=== PATIENT | male | born 1970 | race Caucasian/White ===

== ENCOUNTER 2018-06-11 15:29 | Inpatient (IN) ==
[2018-06-11 16:11] LABS: Basophils # (auto) 0.06 K/uL (0-0.2); Basophils % (auto) 0.8 %; Eosinophils # (auto) 0.25 K/uL (0-0.5); Eosinophils % (auto) 3.2 %; Hematocrit (blood only) 47.9 % (42-52); Hemoglobin 16.8 g/dL (14.0-18.0); Immature Granulocytes # (auto) 0.02 K/uL (0.00-0.02); Immature Granulocytes % (auto) 0.3 %; Lymphocytes # (auto) 1.91 K/uL (1.2-3.4); Lymphocytes % (auto) 24.2 %; Mean Corpuscular Hgb Conc 35.1 g/dL (32-36); Mean Corpuscular Volume 89.4 fL (80-100); Mean Platelet Volume 11.4 fL (7.4-10.4); Monocytes # (auto) 0.89 K/uL (0.11-0.59); Monocytes % (auto) 11.3 %; Neutrophils # (auto) 4.76 K/uL (1.4-6.5); Neutrophils % (auto) 60.2 %; Platelet Count 192 K/uL (130-400); RDW Coefficient of Variation 12.7 % (11.5-14.5); RDW Standard Deviation 41.3 fL (36.4-46.3); Red Blood Count 5.36 M/uL (4.7-6.1); White Blood Count 7.89 K/uL (4.8-10.8)
[2018-06-11 16:21] LABS: Partial Thromboplastin Time 28.1 Seconds (21.0-31.0); Prothrombin Time 10.2 Seconds (9.0-12.0)
--- NOTE | 2018-06-11 16:32 | CT Scan Report ---
CT head/brain wo con CLINICAL HISTORY: Right-sided weakness. Possible stroke. COMPARISON STUDY: No previous studies for comparison. TECHNIQUE: Axial CT of the brain is performed from the vertex to the skull base. IV contrast was not administered for this examination. A dose lowering technique was utilized adhering to the principles of ALARA. CT DOSE: 906.86 mGy.cm FINDINGS: No intra or extra-axial mass lesions are visualized. There is no CT evidence of acute cortical infarc tion. There is no evidence of midline shift. There is no acute hemorrhage. No calvarial fractures ar e visualized. There is no evidence of pathologic ventricular dilatation. There is no evidence of acute sinusitis IMPRESSION: No acute intracranial findings Electronically signed by: Narciso Aguilar M.D. 06/11/2018 4:31 PM
[2018-06-11 16:33] LABS: BUN Creatinine Ratio 16.9 (10-20); Blood Urea Nitrogen 13 mg/dl (7-18); Calcium 8.9 mg/dl (8.5-10.1); Carbon Dioxide 30 mmol/L (21-32); Chloride 102 mmol/L (98-107); Creatinine Clr Calc Pharmacy 107.9 ml/min; Est GFR (African American) 123.9; Est GFR (Non-African American) 106.9; Glucose 96 mg/dl (70-99); Magnesium 2.1 mg/dl (1.8-2.4); Potassium 4.1 mmol/L (3.5-5.1); Sodium 137 mmol/L (136-145)
[2018-06-11 16:37] LABS: Troponin I < 0.015 ng/ml (0-0.045)
--- NOTE | 2018-06-11 16:40 | CT Scan Report ---
CT OF THE CERVICAL SPINE CLINICAL HISTORY: Right-sided weakness. COMPARISON STUDY: None CT DOSE: TECHNIQUE: CT scan of the cervical spine was performed from the skull base to the thoracic inlet. Britney ges are reviewed in the axial, sagittal, and coronal planes. IV contrast was not administered for thi s examination. A dose lowering technique was utilized adhering to the principles of ALARA. FINDINGS: The visualized portions of the lung apices reveal no evidence of pneumothorax. The prevertebral soft tissues are normal. No fractures or subluxations are visualized. There are multilevel degenerative changes. There is a suspected large right paracentral disc protrusion at the C3-4 level with significant spina l canal narrowing. There is a a suspected central disc protrusion at the C4-5 level with effacement o f the anterior thecal sac. There is a suspected broad-based disc protrusion at the C5-6 level with mi ld spinal canal narrowing. An MRI is recommended in follow-up given the limitations of CT scanning fo r diagnosis of disc disease. IMPRESSION: 1. No acute fractures or dislocations identified 2. Suspected large right paracentral disc protrusion at the C3-4 level, suspected small small moderat e central disc protrusion at the C4-5 level, and suspected small broad-based central disc protrusion at the C5-6 level. There is suspected significant canal narrowing at the C3-4 level with possible cor d deformity. An MRI is recommended in follow-up given the limitations of CT scanning for diagnosis of disc disease. Electronically signed by: Narciso Aguilar M.D. 06/11/2018 4:39 PM
--- NOTE | 2018-06-11 16:43 | XRay Report ---
XR chest 1V portable CLINICAL HISTORY: Right-sided weakness COMPARISON STUDY: December 08, 2013 FINDINGS: The cardiac and mediastinal contours are normal. There is no evidence of focal pulmonary co nsolidation. There is no evidence of failure. No pleural effusions are visualized.[Since the prior st udy, the nasogastric tube has been removed. IMPRESSION: No active disease in the chest. Electronically signed by: Narciso Aguilar M.D. 06/11/2018 4:42 PM
[2018-06-11] MEDS ORDERED: methylPREDNISolone 125 MG/2 ML VIAL IV STA (17:16)
[2018-06-11] MEDS ORDERED: HYDROmorphone INJ 1 MG/ML SYRINGE IV STA (17:52)
--- NOTE | 2018-06-11 19:13 | Magnetic Resonance Report ---
MR cervical spine wo con CLINICAL HISTORY: Right arm and leg weakness. Abnormal CT scan. TECHNIQUE: Sagittal and axial T1, T2 and STIR images were obtained. COMPARISON STUDY: CT scan performed June 11, 2018 There are no suspicious areas of marrow replacement. No intrinsic cervical cord lesions are visualize d. C2-3: There is no evidence of disc bulge or focal herniation. There is no spinal or foraminal stenosi s. C3-4: There is a large central disc extrusion with marked secondary spinal canal narrowing. There is deformity of the spinal cord which has an AP diameter of 2.9 mm. There is increased signal within the cord consistent with a secondary myelopathy. C4-5: There is a moderate central disc protrusion with mild cord deformity. There is minor left-sided foraminal narrowing C5-6 :There is a broad-based disc bulge/protrusion. There is moderate spinal canal narrowing with fla ttening of the AP diameter of the spinal cord. There is increased signal within the left hemicord con sistent with a secondary myelopathy. C6-7: There is no evidence of disc bulge or focal herniation. There is no evidence of spinal or merlene inal stenosis. C7-T1: There is no evidence of disc bulge or focal herniation. There is no evidence of spinal or fora randall stenosis. IMPRESSION: 1. Large central disc extrusion at the C3-4 level with resulting cord compression. There is increased signal within the cord consistent with a secondary myelopathy 2. Moderate central disc protrusion at the C4-5 level with mild central cord deformity 3. Broad-based disc bulge/protrusion at the C5-6 level with secondary spinal stenosis, cord deformity , and increased signal within the left hemicord consistent with a secondary myelopathy. Electronically signed by: Narciso Aguilar M.D. 06/11/2018 7:12 PM
--- NOTE | 2018-06-11 20:04 | Emergency Department Note ---
Entered by Patria Bruno acting as a scribe for Leighton Patino DO History of Present Illness General Chief complaint: Neuro Symptoms/Deficit Stated complaint: RT SIDE OF BODY VERY WEAK,NECK PAIN Source: patient Mode of arrival: ambulatory Limitations: no limitations History of Present Illness Provider complaint: Weakness Onset (ago): day(s) 9 Location: upper extremity, lower extremity and right Severity: moderate Pain Consistency: + constant Maximum Pain Intensity: 1 Exacerbated By: + none Associated symptoms: + other (neck pain); no chest pain, no cough, no fever/ chills, no nausea/vomiting and no shortness of breath Patient is a 47 year old male presenting to the ED with weakness beginning x9 days ago. Patient states that he was driving to work prior to onset when he noticed having right sided weakness. Patient includes weakness is constant and moderate in severity. He shares he is dragging his right foot while walking, and having trouble moving the right arm. Patient includes he is having associated neck pain. Patient includes he takes subutex nasally, and denies any prior heroin use. Patient shares he did go to the PCP last week as his hands were �cold� but no results were found. Patient denies any headache, CP, SOB, nausea, vomiting, diarrhea, fevers, or any other sx at this time. Patiently lastly has a history of acid reflex and HTN. Home Medications Home Medications Medication Instructions Recorded Confirmed Type buprenorphine-naloxone 1 tab SUBLINGUAL DAILY 06/11/18 06/11/18 History Allergies Allergy/AdvReac Type Severity Reaction Status Date / Time Penicillins Allergy Unknown rash Verified 06/11/18 17:20 Past Med/Surg History Medical History Hypertension (Chronic) Family History Other No significant family history Social History Feels Safe at Home: Yes Smoking Status: Current every day smoker Preferred Language: Citizen Of The [place] Review of Systems See HPI for pertinent positives & negatives. and A total of 10 systems reviewed and were otherwise negative Physical Exam Vital Signs Vital Signs - 24 hr 06/11/18 15:31 06/11/18 16:02 06/11/18 19:47 Temperature 36.6 C Temperature Source Oral Sepsis Recent Fever Within 48 Hours No Sepsis New/Unexplained Change in Mental Status No Sepsis Action Taken by Nursing No Action Required Pulse Rate 76 Pulse Rate [Finger] 78 Respiratory Rate 17 16 Respiratory Effort / Characteristics Non-Labored Respiratory Depth Normal Blood Pressure 176/105 H Blood Pressure [Right Arm] 150/104 H Blood Pressure Mean 128 Blood Pressure Mean [Right Arm] 119 Blood Pressure Position Sitting Blood Pressure Position [Right Arm] Lying Pulse Oximetry 98 96 Oxygen Delivery Method Room Air Room Air Room Air GENERAL: Sitting up in bed, alert, disheveled, cachectic EYE EXAM: normal conjunctiva. OROPHARYNX: no exudate, no erythema, lips, buccal mucosa, and tongue normal and mucous membranes are moist NECK: supple, no nuchal rigidity, no adenopathy, non-tender LUNGS: Clear to auscultation. Normal chest wall mechanics HEART: no murmurs, S1 normal and S2 normal ABDOMEN: abdomen soft, non-tender, normo-active bowel, sounds, no masses, no rebound or guarding. BACK: Back is symmetrical on inspection and there is no deformity, no midline tenderness, no CVA tenderness. SKIN: no rashes and no bruising UPPER EXTREMITIES: upper extremities are grossly normal. Radial pulses equal bilaterally. LOWER EXTREMITIES: No pitting edema. NEURO EXAM: Normal sensorium, cranial nerves II-XII intact, normal speech, no gross weakness of arms, no gross weakness of legs. Right digits held in flexion. Weakness in flexion and extension of right hip and knee. Decreased sensation on right side. Hyperreflexia of the bilateral patellar and Achilles reflexes. No clonus. Does have rigidity in the right upper extremity. Course Vital signs were reviewed and showed hypertension. The patients medical record was reviewed The above diagnostic studies were performed and reviewed. ED treatments and interventions as stated above. 1539: The patient was evaluated in room A11A. A complete history and physical examination was performed. 1724: Upon reevaluation, the patient is doing well. I discussed my findings with the patient and he understands and agrees with the treatment plan. Based on the patients age, coexisting illnesses, exam and lab findings the decision to treat as an outpatient was made. 1728: Discussed with Dr. Chang, neurology. 1918: Discussed with Dr. Wahl, who will follow up with patient in outpatient. The patient remained stable while under my care. The patient will be evaluated for further management. Administered Medications Discontinued Medications Hydromorphone HCl (Dilaudid) 1 mg IV NOW STA Stop: 06/11/18 17:53 Last Admin: 06/11/18 18:50 Dose: Not Given Methylprednisolone (Solumedrol) 125 mg IV NOW STA Stop: 06/11/18 17:17 Last Admin: 06/11/18 17:27 Dose: 125 mg Medical Decision Making Differential Diagnosis Differential Diagnosis includes but is not limited to ischemic Stroke, hemorrhagic stroke, bells palsy, mass, neoplasm, migraine headache, seizure, subarachnoid hemorrhage, TIA, and transient global amnesia. Medical Records Attestation: I reviewed the patient's medical records. Home Medications Current Medication List: was personally reviewed by me Laboratory Data Attestation: I reviewed the patient's lab results. Result diagrams: 06/11/18 16:00 06/11/18 16:00 Lab Results 06/11/18 06/11/18 06/11/18 Range/Units 15:55 16:00 16:00 WBC 7.89 (4.8-10.8) K/uL RBC 5.36 (4.7-6.1) M/uL Hgb 16.8 (14.0-18.0) g/dL Hct 47.9 (42-52) % MCV 89.4 (80-100) fL MCH 31.3 (25-34) pg MCHC 35.1 (32-36) g/dL RDW Std Deviation 41.3 (36.4-46.3) fL RDW Coeff of Rabia 12.7 (11.5-14.5) % Plt Count 192 (130-400) K/uL MPV 11.4 H (7.4-10.4) fL Immature Gran % (Auto) 0.3 % Neut % (Auto) 60.2 % Lymph % (Auto) 24.2 % [place] % (Auto) 11.3 % Eos % (Auto) 3.2 % Baso % (Auto) 0.8 % Immature Gran # (Auto) 0.02 (0.00-0.02) K/uL Neut # (Auto) 4.76 (1.4-6.5) K/uL Lymph # (Auto) 1.91 (1.2-3.4) K/uL [place] # (Auto) 0.89 H (0.11-0.59) K/uL Eos # (Auto) 0.25 (0-0.5) K/uL Baso # (Auto) 0.06 (0-0.2) K/uL PT 10.2 (9.0-12.0) Seconds INR 1.0 (0.9-1.1) APTT 28.1 (21.0-31.0) Seconds PTT Ratio 1.0 Sodium (136-145) mmol/L Potassium (3.5-5.1) mmol/L Chloride (98-107) mmol/L Carbon Dioxide (21-32) mmol/L Anion Gap (3-11) BUN (7-18) mg/dl Creatinine (0.6-1.4) mg/dl Est Cr Clr Drug Dosing ml/min Est GFR ( Amer) Est GFR (Non-Af Amer) BUN/Creatinine Ratio (10-20) Glucose (70-99) mg/dl POC Glucose 97 (70-99) Lactate (0.4-2.0) mmol/L Calcium (8.5-10.1) mg/dl Magnesium (1.8-2.4) mg/dl Troponin I (0-0.045) ng/ml 06/11/18 06/11/18 Range/Units 16:00 16:00 WBC (4.8-10.8) K/uL RBC (4.7-6.1) M/uL Hgb (14.0-18.0) g/dL Hct (42-52) % MCV (80-100) fL MCH (25-34) pg MCHC (32-36) g/dL RDW Std Deviation (36.4-46.3) fL RDW Coeff of Rabia (11.5-14.5) % Plt Count (130-400) K/uL MPV (7.4-10.4) fL Immature Gran % (Auto) % Neut % (Auto) % Lymph % (Auto) % [place] % (Auto) % Eos % (Auto) % Baso % (Auto) % Immature Gran # (Auto) (0.00-0.02) K/uL Neut # (Auto) (1.4-6.5) K/uL Lymph # (Auto) (1.2-3.4) K/uL [place] # (Auto) (0.11-0.59) K/uL Eos # (Auto) (0-0.5) K/uL Baso # (Auto) (0-0.2) K/uL PT (9.0-12.0) Seconds INR (0.9-1.1) APTT (21.0-31.0) Seconds PTT Ratio Sodium 137 (136-145) mmol/L Potassium 4.1 (3.5-5.1) mmol/L Chloride 102 (98-107) mmol/L Carbon Dioxide 30 (21-32) mmol/L Anion Gap 4.0 (3-11) BUN 13 (7-18) mg/dl Creatinine 0.79 (0.6-1.4) mg/dl Est Cr Clr Drug Dosing 107.9 ml/min Est GFR ( Amer) 123.9 Est GFR (Non-Af Amer) 106.9 BUN/Creatinine Ratio 16.9 (10-20) Glucose 96 (70-99) mg/dl POC Glucose (70-99) Lactate 1.3 (0.4-2.0) mmol/L Calcium 8.9 (8.5-10.1) mg/dl Magnesium 2.1 (1.8-2.4) mg/dl Troponin I < 0.015 (0-0.045) ng/ml Imaging Data Radiologist's Impression: CT OF THE CERVICAL SPINE CLINICAL HISTORY: Right-sided weakness. COMPARISON STUDY: None CT DOSE: TECHNIQUE: CT scan of the cervical spine was performed from the skull base to the thoracic inlet. Images are reviewed in the axial, sagittal, and coronal planes. IV contrast was not administered for this examination. A dose lowering technique was utilized adhering to the principles of ALARA. FINDINGS: The visualized portions of the lung apices reveal no evidence of pneumothorax. The prevertebral soft tissues are normal. No fractures or subluxations are visualized. There are multilevel degenerative changes. There is a suspected large right paracentral disc protrusion at the C3-4 level with significant spinal canal narrowing. There is a a suspected central disc protrusion at the C4-5 level with effacement of the anterior thecal sac. There is a suspected broad-based disc protrusion at the C5-6 level with mild spinal canal narrowing. An MRI is recommended in follow-up given the limitations of CT scanning for diagnosis of disc disease. IMPRESSION: 1. No acute fractures or dislocations identified 2. Suspected large right paracentral disc protrusion at the C3-4 level, suspected small small moderate central disc protrusion at the C4-5 level, and suspected small broad-based central disc protrusion at the C5-6 level. There is suspected significant canal narrowing at the C3-4 level with possible cord deformity. An MRI is recommended in follow-up given the limitations of CT scanning for diagnosis of disc disease. Electronically signed by: Narciso Aguilar M.D. 06/11/2018 4:39 PM XR chest 1V portable CLINICAL HISTORY: Right-sided weakness COMPARISON STUDY: December 08, 2013 FINDINGS: The cardiac and mediastinal contours are normal. There is no evidence of focal pulmonary consolidation. There is no evidence of failure. No pleural effusions are visualized.[Since the prior study, the nasogastric tube has been removed. IMPRESSION: No active disease in the chest. Electronically signed by: Narciso Aguilar M.D. 06/11/2018 4:[address] head/brain wo con CLINICAL HISTORY: Right-sided weakness. Possible stroke. COMPARISON STUDY: No previous studies for comparison. TECHNIQUE: Axial CT of the brain is performed from the vertex to the skull base. IV contrast was not administered for this examination. A dose lowering technique was utilized adhering to the principles of ALARA. CT DOSE: 906.86 mGy.cm FINDINGS: No intra or extra-axial mass lesions are visualized. There is no CT evidence of acute cortical infarction. There is no evidence of midline shift. There is no acute hemorrhage. No calvarial fractures are visualized. There is no evidence of pathologic ventricular dilatation. There is no evidence of acute sinusitis IMPRESSION: No acute intracranial findings Electronically signed by: Narciso Aguilar M.D. 06/11/2018 4:31 PM MR cervical spine wo con CLINICAL HISTORY: Right arm and leg weakness. Abnormal CT scan. TECHNIQUE: Sagittal and axial T1, T2 and STIR images were obtained. COMPARISON STUDY: CT scan performed June 11, 2018 There are no suspicious areas of marrow replacement. No intrinsic cervical cord lesions are visualized. C2-3: There is no evidence of disc bulge or focal herniation. There is no spinal or foraminal stenosis. C3-4: There is a large central disc extrusion with marked secondary spinal canal narrowing. There is deformity of the spinal cord which has an AP diameter of 2.9 mm. There is increased signal within the cord consistent with a secondary myelopathy. C4-5: There is a moderate central disc protrusion with mild cord deformity. There is minor left-sided foraminal narrowing C5-6 :There is a broad-based disc bulge/protrusion. There is moderate spinal canal narrowing with flattening of the AP diameter of the spinal cord. There is increased signal within the left hemicord consistent with a secondary myelopathy. C6-7: There is no evidence of disc bulge or focal herniation. There is no evidence of spinal or foraminal stenosis. C7-T1: There is no evidence of disc bulge or focal herniation. There is no evidence of spinal or foraminal stenosis. IMPRESSION: 1. Large central disc extrusion at the C3-4 level with resulting cord compression. There is increased signal within the cord consistent with a secondary myelopathy 2. Moderate central disc protrusion at the C4-5 level with mild central cord deformity 3. Broad-based disc bulge/protrusion at the C5-6 level with secondary spinal stenosis, cord deformity, and increased signal within the left hemicord consistent with a secondary myelopathy. Electronically signed by: Narciso Aguilar M.D. 06/11/2018 7:12 PM ECG Data Attestation: I personally reviewed and interpreted this ECG as follows: Indication: weakness Rate (beats per minute): 68 Rhythm: sinus rhythm Findings: + other (normal axis, right ventricular conduction delay); no PVC Blood Pressure Blood Pressure Findings: Elevated blood pressure Blood Pressure Disposition: elevated BP felt to be situational MDM Narrative Patient is a 47-year-old male presents the ER for right upper extremity and right lower extremity weakness. This is been present for the past 7-10 days. He was referred in. Labs were obtained and showed no significant leukocytosis or anemia. INR was unremarkable. BMP was unremarkable. Lactate was normal. Troponin was negative. CT of the cervical spine and head confirms large disc with spinal cord impingement. MRI of the cervical spine after discussion with orthopedics and neurology confirms a disc bulge at C3-C4 4-5 and 5-6. 2 of which have cord impingement causing myopathy which is consistent with his exam as he has rigidity in the right upper extremity paresthesias. Did give the patient IV steroids. Discussed with the hospitalist after discussing with orthopedic surgery on 2 separate occasions 1 of which following the results of the CT in 1 following the results of the MRI. He agreed with the steroids and he will see him tomorrow for possible surgery. Pt was updated at bedside and admitted to the hospitalist for further workup. Impression & Plan Herniated vertebral disc, Compression of spinal cord, Weakness of right upper extremity, Weakness of right lower extremity Discharge Plan Visit Data Chief Complaint: Neuro Symptoms/Deficit Stated Complaint: RT SIDE OF BODY VERY WEAK,NECK PAIN ED Provider: Leighton Patino Discharge Problem: Herniated vertebral disc, Compression of spinal cord, Weakness of right upper extremity, Weakness of right lower extremity Forms Stand Alone Forms: My [facility] Prescriptions Prescriptions: No Action buprenorphine-naloxone 8-2 mg tablet, sublingual 1 tab Sublingual DAILY RF: 0 The scribe's documentation has been prepared under my direction and personally reviewed by me in its entirety. I confirm that the note above accurately reflects all work, treatment, procedures, and medical decision making performed by me.
--- NOTE | 2018-06-11 20:36 | History & Physical Report ---
Date of Service June 11, 2018 Assessment & Plan (1) Right-sided muscle weakness: (2) Compression of spinal cord: This is a 47yo M with a PMH of cervical disc disease, h/o narcotic addiction, OA and HTN who presents with right sided weakness that began last week and was found to have R sided weakness in the setting of spinal cord dysfunction due to cervical disc extrusion. -R sided weakness x 1 week in the setting of cervical disc disease -Cervical spine MRI with: * 1. Large central disc extrusion at the C3-4 level with resulting cord compression. There is increased signal within the cord consistent with a secondary myelopathy * 2. Moderate central disc protrusion at the C4-5 level with mild central cord deformity * 3. Broad-based disc bulge/protrusion at the C5-6 level with secondary spinal stenosis, cord deformity, and increased signal within the left hemicord consistent with a secondary myelopathy -Was given 125 mg IV solu-medrol in ED -ED physician discussed with Dr. Wahl, who will evaluate patient tomorrow. No additional steroids to be given at this time -NPO after midnight in setting of possible surgery -Neurovascular checks, fall precautions (3) History of narcotic addiction: Has been on Suboxone for years and is tapering dose (reports snorting medication) -Current dose is half of 2mg tab BID -Will continue for now. Discussed strategy to avoid additional narcotics if possible -Pain currently 05/26. Ordered Tylenol 1000mg Q8H PRN (4) Hypertension: Diagnosed years ago. Is not currently prescribed antihypertensive medication -Add PRN antihypertensive if BP remains elevated DVT Ppx: SCDs Code status: FULL PCP: Teodoro Rosa Dispo: Admitted to med/tele. Plan to return home once medically stable. Patient seen in collaboration with Dr. Monroy. Please see addendum. History of Present Illness Chief Complaint: RUE/RLE weakness, neck pain Primary Care Provider: Tanya Rosa MD This is a 47yo M with a PMH of cervical disc disease, h/o narcotic addiction, OA and HTN who presents with right sided weakness that began last week. Patient has history of cervical disc disease with intermittent paresthesias and numbness of R arm over the past 7 months. Was getting out of his car last week when he began to experience R sided weakness. Weakness has remained constant since last week and has resulted in difficulty using R arm as well as dragging his R foot when walking. Endorses a few falls since last week but denies head trauma or LOC. Says he just loses his balance and has to slowly lower himself to the ground. 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 Neck pain is a 2/10 currently. Was seen by PCP today and was directed to ED for further evaluation with imaging. Takes Suboxone for history of narcotic addiction and is slowly trying to taper dose. Currently snorts half of a 2mg tab BID. Denies fever, chills, confusion, difficulty swallowing, chest pain, SOB, nausea, vomiting, abdominal pain, dysuria, diarrhea or sensory deficits. Allergies Allergy/AdvReac Type Severity Reaction Status Date / Time Penicillins Allergy Unknown rash Verified 06/11/18 17:20 Home Medications Home Medications Medication Instructions Recorded Confirmed Type buprenorphine-naloxone 0.5 tab SUBLINGUAL BID 06/11/18 06/11/18 History Past Med/Surg History Medical History Cervical disc disease (Chronic) History of narcotic addiction (Chronic) Hypertension (Chronic) Surgical History History of esophagogastroduodenoscopy (EGD) (Resolved) Social History Current Living Situation: Alone Other Information That Helps Us Care for You: No Feels Safe at Home: Yes Safety Concerns: Feels Safe At This Time Smoking Status: Current every day smoker Tobacco Type: cigarettes Cigarettes per Day: 30 Do You Dip or Chew Tobacco: No Second Hand Exposure: No Tobacco Cessation Education Requested by Patient: No Hx Alcohol Use: No Hx Substance Use: Yes substance use type: opiates Substance Use Type Other:: opiates. Now on prescribed suboxone Beliefs That Will Affect Care: None Preferred Language: Citizen Of [place] Communication Ability: Effective Hotel Server Required: No Review of Systems Constitutional: no fever, no fatigue and no weakness Eyes: no worsening vision Ear, Nose, Mouth, Throat: no nasal congestion, no sore throat and no dysphagia Respiratory: no cough, no chest congestion and no dyspnea Cardiovascular: no chest pain, no radiating jaw, neck or arm pain, no dyspnea on exertion, no palpitations and no edema Gastrointestinal: no nausea, no vomiting and no change in stools Genitourinary (Male): no dysuria and no hematuria Musculoskeletal: + neck pain, + radicular pain and + muscle weakness Integumentary: + 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 ) Neurologic: + gait abnormality, + falls and + localized weakness (RUE, RLE ); no syncope, no headache(s) and no confusion Psychiatric: + behavioral changes Physical Exam 2 Vital Signs (Past 24 Hours): Last Vital Signs Temp 36.6 C 06/11/18 15:31 Pulse 78 06/11/18 19:47 Resp 16 06/11/18 19:47 BP 150/104 H 06/11/18 19:47 Pulse Ox 96 06/11/18 19:47 Physical Exam: General Appearance: WD/WN, no apparent distress, resting comfortably Head: normocephalic, atraumatic Eyes: normal inspection, PERRL, EOMI ENT: hearing grossly normal, pharynx normal (moist mucous membranes) Neck: supple, no JVD, no adenopathy Respiratory/Chest: Expiratory wheezing at R base, otherwise clear to auscultation. No rales or rhonci. No respiratory distress or accessory muscle use Cardiovascular: regular rate, rhythm, no murmur, normal peripheral pulses Abdomen/GI: normal bowel sounds, soft, non-tender to palpation Extremities/Musculoskelatal: normal inspection, no calf tenderness, normal capillary refill, no pedal edema. Cervical spine with point tenderness. Reduced range of motion of neck Neurologic/Psych: alert, normal mood/affect, oriented x 3. RUE and RLE with full ROM, 4/5 SHAKEEL. L side with full ROM, 5/5 SHAKEEL. Hyperreflexive patellar tendon reflexes bilaterally. Sensation intact. Skin: normal color, warm/dry Results & Data Laboratory Results Short CBC 06/11/18 Range/Units 16:00 WBC 7.89 (4.8-10.8) K/uL Hgb 16.8 (14.0-18.0) g/dL Hct 47.9 (42-52) % Plt Count 192 (130-400) K/uL BMP 06/11/18 16:00 Sodium 137 Potassium 4.1 Chloride 102 Carbon Dioxide 30 BUN 13 Creatinine 0.79 Glucose 96 Calcium 8.9 Cardiac Enzymes 06/11/18 Range/Units 16:00 Troponin I < 0.015 (0-0.045) ng/ml Diagnostic Findings Head CT: IMPRESSION: No acute intracranial findings CXR: IMPRESSION: No active disease in the chest. Cervical spine CT: IMPRESSION: 1. No acute fractures or dislocations identified 2. Suspected large right paracentral disc protrusion at the C3-4 level, suspected small small moderate central disc protrusion at the C4-5 level, and suspected small broad-based central disc protrusion at the C5-6 level. There is suspected significant canal narrowing at the C3-4 level with possible cord deformity. An MRI is recommended in follow-up given the limitations of CT scanning for diagnosis of disc disease. Cervical spine MRI: IMPRESSION: 1. Large central disc extrusion at the C3-4 level with resulting cord compression. There is increased signal within the cord consistent with a secondary myelopathy 2. Moderate central disc protrusion at the C4-5 level with mild central cord deformity 3. Broad-based disc bulge/protrusion at the C5-6 level with secondary spinal stenosis, cord deformity, and increased signal within the left hemicord consistent with a secondary myelopathy. ECG Rhythm: normal sinus Findings: + T-wave inversion (anterior leads ) Code Status & VTE Plan Code Status FULL Supervising Physician Co-Signing Physician Notes HISTORY: Record reviewed. Patient interviewed and examined. Care coordinated with Sandra Stinson PA-C. Please refer to her documentation for patient's history. Briefly, 47 YO male with neck pain, RUE + RLE weakness. No trauma. EXAM: General- no distress Lungs- clear to auscultation; no respiratory distress Cardiovascular- RRR Abdomen- + bowel sounds, soft, nontender Extremities- no cyanosis; no calf tenderness Neuro- alert, oriented; RUE strength 4/5, RLE strength 4/5, right plantar reflex equivocally upgoing Skin- warm & dry DATA: CT HEAD FINDINGS: No intra or extra-axial mass lesions are visualized. There is no CT evidence of acute cortical infarction. There is no evidence of midline shift. There is no acute hemorrhage. No calvarial fractures are visualized. There is no evidence of pathologic ventricular dilatation. There is no evidence of acute sinusitis IMPRESSION: No acute intracranial findings Electronically signed by: Narciso Aguilar M.D. 06/11/2018 4:[address] CERVICAL SPINE IMPRESSION: 1. No acute fractures or dislocations identified 2. Suspected large right paracentral disc protrusion at the C3-4 level, suspected small small moderate central disc protrusion at the C4-5 level, and suspected small broad-based central disc protrusion at the C5-6 level. There is suspected significant canal narrowing at the C3-4 level with possible cord deformity. An MRI is recommended in follow-up given the limitations of CT scanning for diagnosis of disc disease. Electronically signed by: Narciso Aguilar M.D. 06/11/2018 4:39 PM MRI CERVICAL SPINE IMPRESSION: 1. Large central disc extrusion at the C3-4 level with resulting cord compression. There is increased signal within the cord consistent with a secondary myelopathy 2. Moderate central disc protrusion at the C4-5 level with mild central cord deformity 3. Broad-based disc bulge/protrusion at the C5-6 level with secondary spinal stenosis, cord deformity, and increased signal within the left hemicord consistent with a secondary myelopathy. Electronically signed by: Narciso Aguilar M.D. 06/11/2018 7:12 PM ASSESSMENT AND PLAN: Cervical disc disease with cord compression and myelopathy. Consult Ortho Spine. Please refer to YUNG Stinson's documentation for discussion of other issues.
[2018-06-11] MEDS ORDERED: ACETAMINOPHEN 500 MG TAB PO PRN (21:09)
[2018-06-11] MEDS: NICOTINE 21 MG/24 HR TDSY TD SCH (22:04)
[2018-06-11 22:20] LABS: Appearance Urine Clear (Clear); Bilirubin Urine Negative (Negative); Blood Urine Negative (Negative); Color Urine Yellow; Glucose Urine UA Negative (Negative); Ketones Urine Negative (Negative); Leukocyte Esterase Urine Negative (Negative); Nitrite Urine Negative (Negative); Protein Urine Negative (Negative); Specific Gravity Urine 1.012 (1.000-1.030); Urobilinogen Urine Negative (Negative)
[2018-06-12 00:44] LABS: Amphetamines+Metham, Urine Neg (Neg); Barbiturates, Urine Neg (Neg); Benzodiazepine, Urine Neg (Neg); Cocaine, Urine Neg (Neg); MDMA (Ecstacy), Urine Neg (Neg); Methadone, Urine Neg (Neg); Opiate, Urine Neg (Neg); Phencyclidine, Urine Neg (Neg)
[2018-06-12] MEDS: BUPRENORPHINE/NALOXONE 8/2 MG TAB SL SCH ×2 (07:39→21:18)
[2018-06-12] MEDS: TRAMADOL HCL 50 MG TABLET PO PRN ×2 (07:40→11:47)
[2018-06-12 08:16] LABS: Hematocrit (blood only) 48.4 % (42-52); Hemoglobin 16.8 g/dL (14.0-18.0); Mean Corpuscular Hgb Conc 34.7 g/dL (32-36); Mean Corpuscular Volume 88.2 fL (80-100); Mean Platelet Volume 11.3 fL (7.4-10.4); Platelet Count 240 K/uL (130-400); RDW Coefficient of Variation 12.5 % (11.5-14.5); RDW Standard Deviation 40.3 fL (36.4-46.3); Red Blood Count 5.49 M/uL (4.7-6.1); White Blood Count 12.44 K/uL (4.8-10.8)
[2018-06-12 08:56] LABS: Alanine Aminotransferase 16 U/L (12-78); Albumin Level 3.7 gm/dl (3.4-5.0); Aspartate Aminotransferase 10 U/L (15-37); BUN Creatinine Ratio 19.4 (10-20); Bilirubin Direct < 0.1 mg/dl (0-0.2); Blood Urea Nitrogen 15 mg/dl (7-18); Calcium 9.1 mg/dl (8.5-10.1); Carbon Dioxide 26 mmol/L (21-32); Chloride 103 mmol/L (98-107); Creatinine Clr Calc Pharmacy 105.5 ml/min; Est GFR (African American) 123.9; Est GFR (Non-African American) 106.9; Glucose 107 mg/dl (70-99); Potassium 4.1 mmol/L (3.5-5.1); Sodium 137 mmol/L (136-145)
[2018-06-12 08:59] LABS: Alkaline Phosphatase 86 U/L (45-117); Bilirubin,Total 0.3 mg/dl (0.2-1); Total Protein 7.9 gm/dl (6.4-8.2)
[2018-06-12] MEDS: NICOTINE 21 MG/24 HR TDSY TD SCH (09:02)
--- NOTE | 2018-06-12 10:42 | Anesthesiology Consultation ---
Date of Service June 12, 2018 Assessment & Plan (1) Encounter for pre-operative examination: Chart Review Chart Review: Acceptable Risk for Surgery Consults Requested none ASA ASA3 Proposed Anesthesia Anesthesia Type: General Risk / Benefits Reviewed With: PT / POA / Parent / Guardian, Accepts Plan and Informed Consent Obtained Additional Comments: glidescope intubation with in-line stabilization NPO Date Last Intake of Fluids: 06/12/18 Time Last Intake of Fluids: 00:00 Date Last Intake of Solids: 06/12/18 Time Last Intake of Solids: 00:00 History Surgery Operation Date: 06/12/18 09:40 Proposed Procedures p C3-C6 Anterior Cervical Corpectomy Fusion - Luis Wahl DO Height/Weight Height: 5 ft 10 in Weight: 64.5 kg Allergies Allergy/AdvReac Type Severity Reaction Status Date / Time Penicillins Allergy Unknown rash Verified 06/11/18 17:20 Medications Home Medications Medication Instructions Recorded Confirmed Last Taken buprenorphine-naloxone 0.5 tab SUBLINGUAL BID 06/11/18 06/11/18 06/11/18 14:00 Active Medications Generic Name Dose Route Start Last Admin Trade Name Freq PRN Reason Stop Dose Admin Acetaminophen 1,000 mg 06/11/18 21:09 06/12/18 05:15 Tylenol PO 07/11/18 21:08 1,000 mg Q8H PRN Administration Pain or Fever Buprenorphine/Naloxone 0.5 tab 06/12/18 06:45 06/12/18 07:39 Suboxone 8 Mg/2 Mg SL 07/12/18 06:44 0.5 tab BID PREETHI Administration Nicotine 21 mg 06/12/18 09:00 06/12/18 09:02 Nicoderm Cq TD 07/12/18 08:59 21 mg QAM PREETHI Administration Tramadol HCl 25 - 50 mg 06/12/18 06:47 06/12/18 11:47 Ultram PO 07/12/18 06:46 50 mg Q4H PRN Administration Pain Past Medical History Medical History Cervical disc disease (Chronic) History of narcotic addiction (Chronic) Hypertension (Chronic) Past Family History Family History Mother Diabetes Father Lung disease Past Surgical History Surgical History History of esophagogastroduodenoscopy (EGD) (Resolved) Past Anesthesia History No Hx of Anesthesia Complications and No Family Hx of Anesthesia Complications History of PONV No Motion Sickness Screening History of Motion Sickness: No Social History Smoking Status: Current every day smoker tobacco type: cigarettes Smoking cigarettes per day: 30 Do You Dip or Chew Tobacco: No Hx Alcohol Use: No Hx Substance Use: Yes substance use type: opiates Substance Use Type Other:: opiates. Now on prescribed suboxone Exercise / Class Metabolic Activity II 4-5 Yardwork/Stairs/Walk up hill Physical Exam Vital Signs Last Vital Signs Temp 98.1 F 06/12/18 12:00 Pulse 96 H 06/12/18 12:00 Resp 18 06/12/18 12:00 BP 162/108 H 06/12/18 12:00 Pulse Ox 97 06/12/18 12:00 ENMT Mouth: + dentures; no dentition abnormality Mallampati Class: I Neck normal visual inspection and + limited neck extension Respiratory normal respiratory effort Auscultation: lungs clear to auscultation bilaterally Cardiovascular Rate/Rhythm: regular rate and regular rhythm Neurologic moves all extremities Motor/Sensory: + sensory deficit (Decreased right side) 5/5 RUE flexion, 5/5 LUE flexion 5/5 RUE extension, 5/5 LUE extension 5/5 B/L reception clerk strength 5/5 B/L LE plantar flexion/dorsiflexion Testing Electrocardiogram Date: 06/11/18 Normal sinus rhythm @ 68 bpm Possible Left atrial enlargement RSR' or QR pattern in V1 suggests right ventricular conduction delay Borderline ECG When compared with ECG of 08-DEC-2013 19:41, Vent. rate has decreased BY 43 BPM T wave inversion now evident in Anterior leads Chest X-Ray Date: 06/11/18 Findings: + NAD Cervical Spine Date: 06/11/18 1. Large central disc extrusion at the C3-4 level with resulting cord compression. There is increased signal within the cord consistent with a secondary myelopathy 2. Moderate central disc protrusion at the C4-5 level with mild central cord deformity 3. Broad-based disc bulge/protrusion at the C5-6 level with secondary spinal stenosis, cord deformity, and increased signal within the left hemicord consistent with a secondary myelopathy. Laboratory Results 06/12/18 07:43 06/12/18 07:43 Blood Type A Positive 06/12/18 09:18 Antibody Screen NEGATIVE 06/12/18 09:18 PT 10.2 Seconds (9.0-12.0) 06/11/18 16:00 INR 1.0 (0.9-1.1) 06/11/18 16:00 APTT 28.1 Seconds (21.0-31.0) 06/11/18 16:00 Urine Color Yellow 06/11/18 21:57 Urine Appearance Clear (Clear) 06/11/18 21:57 Urine pH 8.0 (4.5-7.5) H 06/11/18 21:57 Ur Specific [place] 1.012 (1.000-1.030) 06/11/18 21:57 Urine Protein Negative (Negative) 06/11/18 21:57 Urine Glucose (UA) Negative (Negative) 06/11/18 21:57 Urine Ketones Negative (Negative) 06/11/18 21:57 Urine Nitrite Negative (Negative) 06/11/18 21:57 Ur Leukocyte Esterase Negative (Negative) 06/11/18 21:57
--- NOTE | 2018-06-12 10:49 | Orthopedic Consultation ---
Date of Consultation June 12, 2018 Assessment & Plan (1) Compression of spinal cord: MRI imaging does demonstrate myelomalacia most severe at C3-4 but extending down to C5-6. In light of his presentation marked decline neurologically I am recommending an urgent anterior cervical decompression and fusion. Would require a corpectomy of C4 and a anterior discectomy and fusion C5-6. Risk benefits pros cons and alternatives were outlined in detail. Patient understands the primary goal of surgery is to halt the progression of his myelopathy. Present on Admission?: Yes History of Present Illness Reason for Consultation: Ambulatory dysfunction neck and arms pain. Attending Physician: Myra Hurtado MD History of Present Illness This is a 47-year-old male that is noted of bilateral arm weakness and tingling for several months but has had a significant Delgado approximately 1 week ago. He denies any specific trauma fall or event. He notes significant weakness to the right upper extremity and right lower extremity. This is affected his balance and ambulation. He subsequently was seen in the emergency room and underwent diagnostic imaging demonstrating severe cervical spinal stenosis with myelomalacia. 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 Allergies Allergy/AdvReac Type Severity Reaction Status Date / Time Penicillins Allergy Unknown rash Verified 06/11/18 17:20 Home Medications Home Medications Medication Instructions Recorded Confirmed Type buprenorphine-naloxone 0.5 tab SUBLINGUAL BID 06/11/18 06/11/18 History Patient History Medical History Cervical disc disease (Chronic) History of narcotic addiction (Chronic) Hypertension (Chronic) Surgical History History of esophagogastroduodenoscopy (EGD) (Resolved) Social History Preferred Language: F[place]ian Communication Ability: Effective Graduate Teaching Associate Required: No Beliefs That Will Affect Care: None Current Living Situation: Alone Other Information That Helps Us Care for You: No Feels Safe at Home: Yes Safety Concerns: Feels Safe At This Time Smoking Status: Current every day smoker Hx Alcohol Use: No Hx Substance Use: Yes Physical Exam Vital Signs (Past 24 Hours): Last Vital Signs Temp 36.7 C 02/27/19 04:00 Pulse 84 06/12/18 07:28 Resp 18 06/12/18 06:31 BP 175/97 H 06/12/18 06:31 Pulse Ox 98 06/12/18 04:00 Physical Exam: On exam he is in obvious distress. He exhibits bilateral Jacob signs clonus and significant strength deficits to the right upper extremity compared to the left.
[2018-06-12] MEDS ORDERED: fentaNYL citrate 100 MCG/2 ML VIAL ONE (12:39)
[2018-06-12] MEDS ORDERED: NEOSTIGMINE METHYLSULFATE 1 MG/ML 10ML VIAL ONE (12:39)
[2018-06-12] MEDS ORDERED: DEXAMETHASONE SOD INJ 4 MG/ML VIAL ONE (12:39)
[2018-06-12] MEDS ORDERED: GLYCOPYRROLATE 0.2 MG/ML VIAL ONE (12:39)
[2018-06-12] MEDS ORDERED: LIDOCAINE HCL 2% 2 ML VIAL/AMP(20MG/ML) INFIL ONE (12:39)
[2018-06-12] MEDS ORDERED: MIDAZOLAM HCL 1 MG/ML 2ML VIAL ONE (12:39)
[2018-06-12] MEDS ORDERED: PROPOFOL IV EMULSION 10 MG/ML 20 ML VIAL IV ONE (12:39)
[2018-06-12] MEDS ORDERED: ONDANSETRON INJ 2 MG/ML 2 ML VIAL ONE (12:39)
--- NOTE | 2018-06-12 13:18 | History & Physical Bridge Note ---
Date of Service June 12, 2018 History & Physical Bridge Note I have examined the patient, reviewed the History & Physical and in the interval since the performance of the History & Physical I have noted the following changes of clinical significance: no changes noted
[2018-06-12] MEDS ORDERED: CLINDAMYCIN 600 MG/54 ML D5W IV ONE (13:37)
[2018-06-12] MEDS ORDERED: BACITRACIN INJ 50,000 UNIT VIAL ONE (13:44)
[2018-06-12] MEDS ORDERED: ATROPINE SULFATE 0.1 MG/ML 10ML SYR IV PRN (13:54)
[2018-06-12] MEDS ORDERED: ONDANSETRON INJ 2 MG/ML 2 ML VIAL IV PRN ×2 (13:54→18:26)
[2018-06-12] MEDS ORDERED: ePHEDrine sulfate 50 MG/ML AMP IV PRN (13:54)
[2018-06-12] MEDS ORDERED: KETAMINE HCL INJ 50 MG/ML 10 ML VIAL ONE (14:15)
[2018-06-12] MEDS ORDERED: HYDROmorphone INJ 2 MG/ML SYR/VIAL ONE ×2 (14:53→17:27)
[2018-06-12] MEDS ORDERED: DexMEDEtomidine HCL IV 100 MCG/ML VIAL IV ONE (15:29)
[2018-06-12] MEDS ORDERED: FLOSEAL HEMOSTATIC MATRIX 10ML TOP ONE (16:19)
--- NOTE | 2018-06-12 16:25 | Operative Report ---
Post Operative Report Pre & Post Diagnosis Operation Date: 06/12/18 09:40 Pre-Op Diagnosis: RUE/LUE WEAKNESS,CORD COMPRESSION AR C3/C4 Post-Op Diagnosis: RUE/LUE WEAKNESS,CORD COMPRESSION AR C3/C4 Procedure Operation Date: 06/12/18 09:40 Actual Procedures #1 anterior cervical corpectomy C4. #2 anterior cervical discectomy bilateral foraminotomies C5-6. #2 anterior cervical arthrodesis C3-C5 and C5-C6. #4 placement of peek cage 27 mm in height at C3-C5 and 8 mm at C5-C6. #5 placement of local morselized autograft combined with DBM in the interbody cages. #6 application castillo plate and screws from C3 to see 6. Surgeon Luis Wahl, Sign Painter Ml Carmen Estimated Blood Loss 50 Findings Consistent with Post-Op Diagnosis Specimens None Description of Procedure Patient was met with preoperatively case discussed all questions addressed. After informed consent obtained patient was taken to the operative suite underwent intubation and placed in a supine position the Stanley table with the head in the Peña head refrigeration engineer. All bony prominences well-padded eyes inspected to ensure no external pressure placed upon the peer at this point the anterior cervical spine was prepped and draped in a normal sterile fashion. Sharp dissection with the assistance of bipolar electrocautery was performed along the right anterior aspect of the cervical spine extending from C3-C6. Was able to expose the anterior cervical spine from C3-C6 verified my position with fluoroscopy. Complete discectomy of C3-4 was then performed up to the uncov ertebral joints bilaterally followed by C4-5. Superior distracting pins were then placed in C3 and C5 to distract across the see for vertebral body. Then performed a complete corpectomy of C4 including removal of all posterior annular fibers and longitudinal ligament addressing massive amounts of disc material that had herniated into the canal at both levels. After complete decompression in place burred to subcortical bleeding bone and a 27 mm peek cage filled with local autograft and DBM tamped in position. Distraction apparatus was removed and I proceeded to C5-6. Complete discectomy was performed up to the uncovertebral joints bilaterally. Superior distracting pins again utilized. Removed all posterior annular fibers longitudinal ligament bilateral foraminotomies performed for complete decompression. Endplates were then burred to subcortical bleeding bone and a 8 mm peek cage filled with local autograft and DBM tamped in position. Distraction apparatus was removed and a castillo plate and screws applied with the assistance of fluoroscopy. Incision was then copious irrigated explored to ensure no damage to surrounding structures remaining bleeding. 10 round NICK drain inserted. The incision was then closed with 2 Vicryl in a fashion of 4 Monocryl for final skin closure Steri-Strip sterile dressing was placed. Patient will continue to PACU in a stable condition. Please note Ml Carmen present throughout the entire procedure involved in patient positioning complex portions of the surgery and final skin closure. I attest to the content of the Intraoperative Record and any orders documented therein. Any exceptions are noted below.
[2018-06-12] MEDS ORDERED: ROCURONIUM BROMIDE 10 MG/ML 5 ML VIAL ONE (16:51)
[2018-06-12] MEDS: fentaNYL citrate 100 MCG/2 ML VIAL IV PRN ×4 (17:05→17:20)
--- NOTE | 2018-06-12 17:16 | Fluoroscopy Report ---
FL cervical 2-3V CLINICAL HISTORY: 47 years-old Male presenting with ACDF C3-6. TECHNIQUE: 2 fluoroscopic image(s) recorded as part of an intraoperative procedure. COMPARISON: MR from 06/11/2018. FINDINGS/IMPRESSION: There has been interval anterior cervical discectomy and fusion of C3-C6 with C4 corpectomy. Straight ening of cervical lordosis. Supportive tubes noted in the aerodigestive tract. Please see surgical report for further details. Fluoroscopy dosage (mGy): 1.08. Fluoroscopy time: 10.9 seconds. Number or time of fluoroscopic spot images: 0. Electronically signed by: Francesco Avila M.D. 06/12/2018 5:15 PM
[2018-06-12] MEDS: HYDROmorphone INJ 2 MG/ML SYR/VIAL IV PRN ×4 (17:28→17:43)
--- NOTE | 2018-06-12 17:50 | Anesthesiology Progress Note ---
Date of Service June 12, 2018 Anesthesia Post Procedure Vital Signs Vital Signs: Temp Pulse Pulse Pulse Resp BP BP 06/12/18 17:40 36.4 C L 76 16 06/12/18 17:30 79 16 06/12/18 17:20 86 16 06/12/18 17:15 85 20 06/12/18 17:10 87 12 146/107 H 06/12/18 17:05 88 16 161/101 H 06/12/18 17:00 89 10 L 162/102 H 06/12/18 16:55 109 H 14 154/101 H 06/12/18 16:50 95 H 13 154/96 H 06/12/18 16:46 95 H 14 158/104 H 06/12/18 16:45 98 H 20 159/102 H 06/12/18 16:43 98 H 16 162/110 H 06/12/18 16:42 36.3 C L 87 16 06/12/18 12:00 36.7 C 96 H 18 162/108 H 06/12/18 11:36 36.7 C 99 H 19 158/103 H 06/12/18 07:28 84 06/12/18 06:31 87 18 06/12/18 04:00 36.7 C 80 18 174/102 H 06/11/18 23:50 90 06/11/18 23:00 37.0 C 81 18 06/11/18 22:18 36.7 C 82 78 18 163/102 H 06/11/18 20:54 70 16 151/99 H 06/11/18 19:47 78 16 BP Pulse Ox 06/12/18 17:40 145/91 H 100 06/12/18 17:30 148/97 H 100 06/12/18 17:20 158/104 H 99 06/12/18 17:15 100 06/12/18 17:10 100 06/12/18 17:05 100 06/12/18 17:00 100 06/12/18 16:55 100 06/12/18 16:50 100 06/12/18 16:46 100 06/12/18 16:45 100 06/12/18 16:43 100 06/12/18 16:42 158/104 H 100 06/12/18 12:00 97 06/12/18 11:36 98 06/12/18 07:28 06/12/18 06:31 175/97 H 06/12/18 04:00 154/100 H 98 06/11/18 23:50 06/11/18 23:00 163/94 H 100 06/11/18 22:18 156/101 H 96 06/11/18 20:54 96 06/11/18 19:47 150/104 H 96 Pain Intensity Neck: Pain Intensity: 8 Head: Pain Intensity: 10
--- NOTE | 2018-06-12 18:18 | Hospitalist Progress Note ---
Date of Service June 12, 2018 Assessment & Plan (1) Compression of spinal cord: This is a 47yo M with a PMH of cervical disc disease, h/o narcotic addiction, OA and HTN who presents with right sided weakness that began last week and was found to have R sided weakness in the setting of spinal cord dysfunction due to cervical disc extrusion. -R sided weakness x 1 week in the setting of cervical disc disease -Cervical spine MRI with: * 1. Large central disc extrusion at the C3-4 level with resulting cord compression. There is increased signal within the cord consistent with a secondary myelopathy * 2. Moderate central disc protrusion at the C4-5 level with mild central cord deformity * 3. Broad-based disc bulge/protrusion at the C5-6 level with secondary spinal stenosis, cord deformity, and increased signal within the left hemicord consistent with a secondary myelopathy Appreciate input from spinal orthopedics, Dr. Wahl Patient underwent cervical spine decompression surgery today, recovering well postop Continue pain management, PT OT as per orthopedics (2) History of narcotic addiction: Has been on Suboxone for years and is tapering dose (reports snorting medication) -Current dose is half of 2mg tab BID Continued Status post cervical spine decompression surgery today Pain appears to be well controlled (3) Cervical spinal stenosis: Presented with chronic neck pain, Cervical spine MRI with: * 1. Large central disc extrusion at the C3-4 level with resulting cord compression. There is increased signal within the cord consistent with a secondary myelopathy * 2. Moderate central disc protrusion at the C4-5 level with mild central cord deformity * 3. Broad-based disc bulge/protrusion at the C5-6 level with secondary spinal stenosis, cord deformity, and increased signal within the left hemicord consistent with a secondary myelopathy Status post cervical decompression surgery CODE STATUS: Full code DVT prophylaxis: Low risk, ambulate, avoid pharmacological anticoagulation in the setting of recent spinal surgery Disposition: Expected to be discharged home when medically stable Present on Admission?: Yes Subjective Patient is seen after cervical spine surgery, on neck collar, denies of any pain or discomfort other than stiffness in her neck, no fever or chills, no shortness of breath or paresthesia Physical Exam Vital Signs (Past 24 Hours): Last Vital Signs Temp 36.4 C L 06/12/18 18:00 Pulse 76 06/12/18 18:00 Resp 16 06/12/18 18:00 BP 141/86 H 06/12/18 18:00 Pulse Ox 100 06/12/18 18:00 Physical Exam: GENERAL: No sign of distress, HEENT: Sclera nonicteric, Status post cervical spine surgery, drain present, cervical neck collar Normal oral mucosa, neck: No JVD, no thyromegaly, trachea midline Lungs: Clear to auscultate, no wheeze or rales Cardiovascular: Regular S1 and S2, no lower extremity edema Abdomen: Soft, nontender, bowel sounds active, Extremities: No rash or deformity, normal joint, Neuro: No focal neurological deficit, no dysarthria, no facial droop Psych: Alert awake oriented x3: Euthymic Skin: No rash
[2018-06-12] MEDS ORDERED: HYDROmorphone INJ 0.5 MG/0.5 ML SYR IV PRN (18:26)
[2018-06-12] MEDS ORDERED: LORazepam 0.5 MG TAB PO PRN (18:26)
[2018-06-12] MEDS ORDERED: DiphenhydrAMINE HCL 50 MG/ML VIAL IV PRN (18:26)
[2018-06-12] MEDS ORDERED: MAGNESIUM HYDROXIDE SUSP 30 ML UDC PO PRN (18:26)
[2018-06-12] MEDS ORDERED: LACTATED RINGER'S 1,000 ML IV SCH (18:26)
[2018-06-12] MEDS ORDERED: DO NOT ADMINISTER PNEUMOCOCCAL VACCINE PRN (18:26)
[2018-06-12] MEDS ORDERED: ACETAMINOPHEN 1,000 MG/100 ML VIAL IV PRN (18:26)
[2018-06-12] MEDS ORDERED: RACEPINEPHRINE 2.25% NEBU SOLN 0.5 ML VIAL INH PRN (18:26)
[2018-06-12] MEDS ORDERED: LORazepam 0.5 MG/1 ML VIAL IV PRN (18:26)
[2018-06-12] MEDS ORDERED: NALOXONE HCL 0.4 MG/1 ML VIAL/CARP IV PRN (18:26)
[2018-06-12] MEDS ORDERED: DEXAMETHASONE SOD PHOSPHATE 8 MG in SYRINGE 0 ML IV PRN (18:26)
[2018-06-12] MEDS ORDERED: DO NOT ADMINISTER FLU VACCINE PRN (18:26)
[2018-06-12] MEDS ORDERED: SCOPOLAMINE 1.5 MG TDSY TD SCH (19:00)
[2018-06-12] MEDS: DOCUSATE SODIUM 100 MG CAP PO SCH (20:13)
[2018-06-12] MEDS: DEXAMETHASONE SOD PHOSPHATE 6 MG in SYRINGE 0 ML IV SCH (20:15)
[2018-06-12] MEDS: CLINDAMYCIN 600 MG in DEXTROSE 5% 50 ML IV SCH (21:21)
[2018-06-12] MEDS: CHECK SCOPOLAMINE PATCH PLACEMENT SCH (23:28)
[2018-06-13] MEDS: DEXAMETHASONE SOD PHOSPHATE 6 MG in SYRINGE 0 ML IV SCH ×2 (04:56→11:20)
[2018-06-13] MEDS: CLINDAMYCIN 600 MG in DEXTROSE 5% 50 ML IV SCH ×2 (04:56→13:16)
[2018-06-13] MEDS: OXYCODONE HCL IR 5 MG TAB (IMMEDIATE RELEASE) PO PRN ×4 (05:03→23:22)
[2018-06-13] MEDS ORDERED: CLINDAMYCIN 600 MG/54 ML BAG IV SCH (06:00)
[2018-06-13] MEDS ORDERED: ALBUT/IPRATROP 3MG/0.5MG NEB 3 ML VIAL NEB PRN (07:50)
[2018-06-13] MEDS ORDERED: ALBUTEROL HFA 8 GM INHALER INH PRN (07:50)
[2018-06-13] MEDS: TRAMADOL HCL 50 MG TABLET PO PRN ×2 (07:57→13:16)
[2018-06-13] MEDS: CHECK SCOPOLAMINE PATCH PLACEMENT SCH ×3 (07:58→23:23)
[2018-06-13] MEDS: DOCUSATE SODIUM 100 MG CAP PO SCH ×2 (07:58→20:36)
[2018-06-13] MEDS: BUPRENORPHINE/NALOXONE 8/2 MG TAB SL SCH ×2 (09:11→20:35)
[2018-06-13] MEDS: NICOTINE 21 MG/24 HR TDSY TD SCH (09:11)
--- NOTE | 2018-06-13 11:36 | Anesthesiology Progress Note ---
Date of Service June 13, 2018 Anesthesia Post Procedure Vital Signs Vital Signs: Temp Pulse Pulse Pulse Resp BP BP 06/13/18 11:15 36.5 C 82 16 139/87 06/13/18 09:15 36.7 C 94 H 16 145/90 H 06/13/18 07:34 83 14 06/13/18 07:15 36.6 C 82 16 136/82 06/13/18 05:20 36.6 C 76 16 06/13/18 03:23 84 18 06/13/18 03:10 36.7 C 85 16 131/80 06/13/18 01:21 36.8 C 91 H 14 131/77 06/12/18 23:26 84 16 06/12/18 23:08 36.9 C 87 16 148/92 H 06/12/18 21:10 36.6 C 71 18 144/88 H 06/12/18 20:10 36.7 C 97 H 18 128/80 06/12/18 19:29 90 16 06/12/18 19:13 36.7 C 83 17 134/85 06/12/18 18:40 36.6 C 89 16 06/12/18 18:10 36.6 C 78 16 06/12/18 18:00 36.4 C L 76 16 06/12/18 17:50 79 16 06/12/18 17:40 36.4 C L 76 16 06/12/18 17:30 79 16 06/12/18 17:20 86 16 06/12/18 17:15 85 20 06/12/18 17:10 87 12 146/107 H 06/12/18 17:05 88 16 161/101 H 06/12/18 17:00 89 10 L 162/102 H 06/12/18 16:55 109 H 14 154/101 H 06/12/18 16:50 95 H 13 154/96 H 06/12/18 16:46 95 H 14 158/104 H 06/12/18 16:45 98 H 20 159/102 H 06/12/18 16:43 98 H 16 162/110 H 06/12/18 16:42 36.3 C L 87 16 06/12/18 12:00 36.7 C 96 H 18 162/108 H 06/12/18 11:36 36.7 C 99 H 19 158/103 H BP Pulse Ox 06/13/18 11:15 96 06/13/18 09:15 97 06/13/18 07:34 94 06/13/18 07:15 95 06/13/18 05:20 150/85 H 96 06/13/18 03:23 99 06/13/18 03:10 98 06/13/18 01:21 98 06/12/18 23:26 96 06/12/18 23:08 100 06/12/18 21:10 99 06/12/18 20:10 100 06/12/18 19:29 98 06/12/18 19:13 100 06/12/18 18:40 150/90 H 100 06/12/18 18:10 141/94 H 100 06/12/18 18:00 141/86 H 100 06/12/18 17:50 132/87 100 06/12/18 17:40 145/91 H 100 06/12/18 17:30 148/97 H 100 06/12/18 17:20 158/104 H 99 06/12/18 17:15 100 06/12/18 17:10 100 06/12/18 17:05 100 06/12/18 17:00 100 06/12/18 16:55 100 06/12/18 16:50 100 06/12/18 16:46 100 06/12/18 16:45 100 06/12/18 16:43 100 06/12/18 16:42 158/104 H 100 06/12/18 12:00 97 06/12/18 11:36 98 Pain Intensity Neck: Pain Intensity: 4 Head: Pain Intensity: 10 Notes Mental Status: alert / awake / arousable and participated in evaluation Patient Amnestic to Procedure: Yes Nausea / Vomiting: adequately controlled Pain: adequately controlled Airway Patency, RR, SpO2: stable & adequate BP & HR: stable & adequate Hydration State: stable & adequate Anesthetic Complications: no major complications apparent and Pt Satisfied with anesthetic care
--- NOTE | 2018-06-13 14:50 | Orthopedic Progress Note ---
Date of Service June 13, 2018 Assessment & Plan (1) Compression of spinal cord: At this time we will maintain the NICK drain another 24 hours and anticipate possible discharge home tomorrow. Present on Admission?: Yes Subjective Neck pain is controlled arm symptoms improving. Ambulation improving. He is swallowing relatively well. No hoarseness. Physical Exam Vital Signs (Past 24 Hours): Last Vital Signs Temp 36.8 C 06/13/18 13:00 Pulse 82 06/13/18 13:00 Resp 18 06/13/18 13:00 BP 144/86 H 06/13/18 13:00 Pulse Ox 99 06/13/18 13:00 Physical Exam: On exam he is wearing his collar as requested. He demonstrates some modest improvement of supervisor wet pour to the right upper extremity compared to yesterday.
--- NOTE | 2018-06-13 17:04 | Hospitalist Progress Note ---
Date of Service June 13, 2018 Assessment & Plan (1) Compression of spinal cord: This is a 47yo M with a PMH of cervical disc disease, h/o narcotic addiction, OA and HTN who presents with right sided weakness that began last week and was found to have R sided weakness in the setting of spinal cord dysfunction due to cervical disc extrusion. -presented with R sided weakness x 1 week in the setting of cervical disc disease -Cervical spine MRI with: * 1. Large central disc extrusion at the C3-4 level with resulting cord compression. There is increased signal within the cord consistent with a secondary myelopathy * 2. Moderate central disc protrusion at the C4-5 level with mild central cord deformity * 3. Broad-based disc bulge/protrusion at the C5-6 level with secondary spinal stenosis, cord deformity, and increased signal within the left hemicord consistent with a secondary myelopathy Appreciate input from spinal orthopedics, Dr. Wahl Patient underwent cervical spine decompression surgery POR #1 recovering well postop plan to DC NICK drain tomorrow then possible DC home (2) History of narcotic addiction: Has been on Suboxone for years and is tapering dose (reports snorting medication) -Current dose is half of 2mg tab BID Continued (3) Cervical spinal stenosis: Presented with chronic neck pain, Cervical spine MRI with: * 1. Large central disc extrusion at the C3-4 level with resulting cord compression. There is increased signal within the cord consistent with a secondary myelopathy * 2. Moderate central disc protrusion at the C4-5 level with mild central cord deformity * 3. Broad-based disc bulge/protrusion at the C5-6 level with secondary spinal stenosis, cord deformity, and increased signal within the left hemicord consistent with a secondary myelopathy Status post cervical decompression surgery by Dr Wahl CODE STATUS: Full code DVT prophylaxis: Low risk, ambulate, avoid pharmacological anticoagulation in the setting of recent spinal surgery Disposition: possible D/c home tomorrow Subjective on cervical collar has minimum pain on neck mostly the discomfort from cervical collar Nick drain present no fever or chills denies of any weakness or paresthesia Physical Exam Vital Signs (Past 24 Hours): Last Vital Signs Temp 36.7 C 06/13/18 15:42 Pulse 83 06/13/18 15:42 Resp 16 06/13/18 15:42 BP 144/88 H 06/13/18 15:42 Pulse Ox 100 06/13/18 15:42 Physical Exam: GENERAL: No sign of distress, HEENT: Sclera nonicteric, Normal oral mucosa, Neck :s/p cervical spine surgery /cervical collar/NICK drain persent Lungs: Clear to auscultate, no wheeze or rales Cardiovascular: Regular S1 and S2, no murmur or gallop, Abdomen: Soft, nontender, bowel sounds active, Extremities: No rash or deformity, normal joint, Neuro: No focal neurological deficit, no dysarthria, no facial droop Psych: Alert awake oriented x3: Euthymic Skin: No rash
[2018-06-14] MEDS: OXYCODONE HCL IR 5 MG TAB (IMMEDIATE RELEASE) PO PRN ×2 (03:48→10:02)
[2018-06-14] MEDS: TRAMADOL HCL 50 MG TABLET PO PRN (07:07)
[2018-06-14] MEDS: CHECK SCOPOLAMINE PATCH PLACEMENT SCH (07:08)
[2018-06-14] MEDS: NICOTINE 21 MG/24 HR TDSY TD SCH (07:08)
[2018-06-14] MEDS: DOCUSATE SODIUM 100 MG CAP PO SCH (07:09)
[2018-06-14] MEDS: BUPRENORPHINE/NALOXONE 8/2 MG TAB SL SCH (10:05)
[2018-06-14] MEDS ORDERED: AMLODIPINE BESYLATE 5 MG TAB PO ONE (10:46)
--- NOTE | 2018-06-14 10:52 | Hospitalist Progress Note ---
Date of Service June 14, 2018 Assessment & Plan (1) Compression of spinal cord: per Dr. Hurtado notes: This is a 47yo M with a PMH of cervical disc disease, h/o narcotic addiction, OA and HTN who presents with right sided weakness that began last week and was found to have R sided weakness in the setting of spinal cord dysfunction due to cervical disc extrusion. -R sided weakness x 1 week in the setting of cervical disc disease -Cervical spine MRI with: * 1. Large central disc extrusion at the C3-4 level with resulting cord compression. There is increased signal within the cord consistent with a secondary myelopathy * 2. Moderate central disc protrusion at the C4-5 level with mild central cord deformity * 3. Broad-based disc bulge/protrusion at the C5-6 level with secondary spinal stenosis, cord deformity, and increased signal within the left hemicord consistent with a secondary myelopathy stable overall post op cleared for discharge by Dr. Wahl ff up with Dr. Wahl as advised (2) History of narcotic addiction: Has been on Suboxone for years and is tapering dose (reports snorting medication) pain well controlled continue Suboxone on dishcarge (3) Cervical spinal stenosis: management per #1 CODE STATUS: Full code DVT prophylaxis: Low risk, ambulate, avoid pharmacological anticoagulation in the setting of recent spinal surgery Disposition:d/c home ff up with PCP next week ff up with Dr. Wahl as scheduled (4) Hypertension: Amlodipine 5mg started BP improved in the afternoon asymptomatic discharge on Amlodipine 5mg po daily outpatient ff up 06/18/18 emphasized adherence with medication and ff up to avoid complications like CAD, CVA, CKD, etc. he verbalized understanding and agreement Subjective ff up s/p cervical spine decompression surgery seen resting in bed, comfortable states he feels fine overall denies neck pain, anxiety, chest pain, headache, dizziness, dyspnea no other symptoms states he is ready for discharge today Physical Exam Vital Signs (Past 24 Hours): Last Vital Signs Temp 36.9 C 06/14/18 07:08 Pulse 86 06/14/18 10:39 Resp 20 06/14/18 07:52 BP 163/103 H 06/14/18 10:39 Pulse Ox 97 06/14/18 10:39 Physical Exam: General- oriented x 3, not in distress, speaks in sentences with no effort or accessory muscle use Eyes- anicteric Neck- no JVD, cervical collar in place Lungs- clear breath sounds bilaterally Heart- normal rate, regular rhythm; no murmurs Abdomen- normal bowel sounds, nondistended, soft, nontender Extremities- no pretibial edema, no calf tenderness Neuro- alert, oriented x 3; no gross focal neurologic deficits Skin- warm & dry
--- NOTE | 2018-06-14 13:11 | Discharge Summary ---
Date of Service June 14, 2018 Admission HPI Per Admitting Provider This is a 47yo M with a PMH of cervical disc disease, h/o narcotic addiction, OA and HTN who presents with right sided weakness that began last week. Patient has history of cervical disc disease with intermittent paresthesias and numbness of R arm over the past 7 months. Was getting out of his car last week when he began to experience R sided weakness. Weakness has remained constant since last week and has resulted in difficulty using R arm as well as dragging his R foot when walking. Endorses a few falls since last week but denies head trauma or LOC. Says he just loses his balance and has to slowly lower himself to the ground. 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 Neck pain is a 2/10 currently. Was seen by PCP today and was directed to ED for further evaluation with imaging. Takes Suboxone for history of narcotic addiction and is slowly trying to taper dose. Currently snorts half of a 2mg tab BID. Denies fever, chills, confusion, difficulty swallowing, chest pain, SOB, nausea, vomiting, abdominal pain, dysuria, diarrhea or sensory deficits. Principal Diagnosis Cervical spinal stenosis with mild low radiculopathy and myelomalacia Discharge Data Allergies Allergy/AdvReac Type Severity Reaction Status Date / Time Penicillins Allergy Unknown rash Verified 06/11/18 17:20 Consultations 06/11/18 17:42 ED Decision to Admit Stat 06/11/18 21:09 Consult Orthopedic Surgery Routine Procedures Performed Operation Date: 06/12/18 09:40 Actual Procedures p C4 Corpectomy, C5-C6 Anterior Cervical discectomy and Fusion, Instrumented Fusion c3-c6(Not Applicable) - Luis Wahl DO Ordered Studies 06/11/18 15:46 CT cervical spine wo con Stat CT head/brain wo con Stat 06/11/18 17:15 MR cervical spine wo con Stat 06/12/18 12:00 FL cervical 2-3V Routine FL fluoroscopy <1hr Routine Hospital Course (1) Compression of spinal cord: Patient was admitted to the hospital with marked decline in neurologic function. He underwent urgent anterior cervical decompression and fusion the next day. He tolerated this procedure well was taken to orthopedic floor postoperatively. Postop day #1 he felt his symptoms were steadily improving. He was swallowing well. His ambulation improving. Postop day #2 his NICK drain decreased appropriately. He was subsequently discharged home. Discharge orders and instructions found in the chart for further review. Total Time Total Time Spent Total Time Spent (In Minutes): Not applicable Discharge Plan Discharge Items Patient Disposition: Home - Self-Care Reason For Visit: RUE/LUE WEAKNESS,CORD COMPRESSION AR C3/C4 Discharge Diagnosis: cervical stenosis with myelopathy Discharge Goals: Improve function Activity: Per 'Additional Instructions' section Non-emergency contact: Primary Care Provider Call non-emergency contact if: you have any medication questions Follow-up/Referrals: Luis Wahl, [Surgeon] - Diet: Regular Addtl Provider Instructions: PLEASE FOLLOW UP WITH DR ANDERS ON 06/18/2018 @ 2:45 PM FOR RE-EVALUATION REG ARDING BLOOD PRESSURE CONTROL. ( Dr Lindquist is out of office next week ) CALL PRIMARY CARE PHYSICIAN OR RETURN TO ER IMMEDIATELY IF WITH LIGHTHEADEDNESS, DIZZINESS, WEAKNESS. FOLLOW UP WITH DR WAHL IN OFFICE IN A WEEK , PLEASE CALL OFFICE FOR APPOINTMENT ACTIVITY RECOMMENDATIONS: SELF CARE INSTRUCTIONS AFTER CERVICAL FUSIONS 1. No smoking. Smoking drastically decreases the chance of a solid fusion. 2. No bending, lifting more than 5 pounds, or twisting (roll like a log when turning in bed). 3. You may shower 3 days after surgery. Thoroughly dry wound. Do not soak in the tub. 4. Cervical collar: Must be worn at all times including sleeping. You may remove the brace only to bath, eat and if you are sitting in a recliner. 5. Please walk as much as you can for exercise. Gradually increase the distance that you walk as your endurance increases. SPECIAL CARE INSTRUCTIONS: VERY IMPORTANT TO READ AND REVIEW A. Do not take any anti-inflammatory medications (i.e. Indocin, Advil, Aspirin, Naprosyn, Aleve, Motrin, etc.) as these may inhibit the chance of a solid fusion. Tylenol is okay to take. B. Your surgical incision has been closed with a cosmetic suture under the skin that will dissolve in about 6 weeks. In 14 days, you can use a pair of clean scissors and cut the suture that is left outside of the skin at the ends of your incision. C. Complications are uncommon, but please contact us if you have any signs or symptoms of: 1. wound infection (fever higher than 102.5 degrees F, redness, separation of wound, drainage, or increasing pain from the incision) 2. blood clots in legs (pain, swelling, redness and warmth in legs) 3. urinary tract infection (fever higher than 102.5 degrees, burning upon urination or increased frequency of urination) 4. nerve problems (inability to walk on your toes or heels, numbness, loss of bowel or bladder control) 5. any other symptoms that concern you. D. Please call the office at if you have any concerns or questions about your operation or recovery. MANAGING PAIN AFTER SPINAL SURGERY 1. Narcotic medication is intended for short-term use and will be provided for surgical pain. Surgical pain usually lasts for a period of 4-6 weeks. Narcotic medication includes Percocet, Vicodin, Darvocet, Tylenol #3 or Lortab. 2. Longer-term pain is more appropriately treated with non-narcotic medication such as Tylenol ES. 3. Muscle spasm is not appropriately treated with narcotics. Muscle relaxers such as Soma, Flexeril or Skelaxin can be used along with Tylenol ES. 4. Remember that we all live with some "aches and pains". This is not unusual or uncommon after an injury or as we get older. 5. We will provide appropriate medication within the normal guidelines of their prescribed use. We will also be very cautious and aware of potential abuse and extended duration of patients' medication needs. 6. Please allow 2-3 days to process refills. Prescriptions will not be mailed but must be picked up at the office. FOLLOW UP VISIT: Keep your scheduled follow-up appointment. Any questions, please call the office at . Prescriptions: New amlodipine 5 mg tablet 5 mg PO DAILY Qty: 30 RF: 0 Continued buprenorphine-naloxone 8-2 mg tablet, sublingual 0.5 tab Sublingual BID RF: 0 Stand-Alone Forms: [facility], Opioid Pain Management Discharge Orders: Discharge Order (Routine); Ordered 06/14/18 Ordered By: Luis Wahl Admission Data Admit Date/Time: 06/11/18 20:32 Attending Provider: David Scales Admit Provider: Miky Monroy Primary Care Provider: Tanya Santoyo Other Providers: Miky Monroy ; Luis Wahl Service: Surgical Services
[2018-06-14] MEDS ORDERED: BISACODYL 5 MG TABEC PO PRN (16:29)
--- NOTE | 2018-06-14 18:41 | Discharge Summary ---
Date of Service June 14, 2018 Admission HPI Per Admitting Provider This is a 47yo M with a PMH of cervical disc disease, h/o narcotic addiction, OA and HTN who presents with right sided weakness that began last week. Patient has history of cervical disc disease with intermittent paresthesias and numbness of R arm over the past 7 months. Was getting out of his car last week when he began to experience R sided weakness. Weakness has remained constant since last week and has resulted in difficulty using R arm as well as dragging his R foot when walking. Endorses a few falls since last week but denies head trauma or LOC. Says he just loses his balance and has to slowly lower himself to the ground. 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 Neck pain is a 2/10 currently. Was seen by PCP today and was directed to ED for further evaluation with imaging. Takes Suboxone for history of narcotic addiction and is slowly trying to taper dose. Currently snorts half of a 2mg tab BID. Denies fever, chills, confusion, difficulty swallowing, chest pain, SOB, nausea, vomiting, abdominal pain, dysuria, diarrhea or sensory deficits. Admission Exam Per Admitting Provider Vital Signs (Past 24 Hours): Last Vital Signs Temp 36.6 C 06/11/18 15:31 Pulse 78 06/11/18 19:47 Resp 16 06/11/18 19:47 BP 150/104 H 06/11/18 19:47 Pulse Ox 96 06/11/18 19:47 Physical Exam: General Appearance: WD/WN, no apparent distress, resting comfortably Head: normocephalic, atraumatic Eyes: normal inspection, PERRL, EOMI ENT: hearing grossly normal, pharynx normal (moist mucous membranes) Neck: supple, no JVD, no adenopathy Respiratory/Chest: Expiratory wheezing at R base, otherwise clear to auscultation. No rales or rhonci. No respiratory distress or accessory muscle use Cardiovascular: regular rate, rhythm, no murmur, normal peripheral pulses Abdomen/GI: normal bowel sounds, soft, non-tender to palpation Extremities/Musculoskelatal: normal inspection, no calf tenderness, normal capillary refill, no pedal edema. Cervical spine with point tenderness. Reduced range of motion of neck Neurologic/Psych: alert, normal mood/affect, oriented x 3. RUE and RLE with full ROM, 4/5 SHAKEEL. L side with full ROM, 5/5 SHAKEEL. Hyperreflexive patellar tendon reflexes bilaterally. Sensation intact. Skin: normal color, warm/dry Principal Diagnosis Cervical spinal stenosis with mild low radiculopathy and myelomalacia s/p C4 Corpectomy, C5-C6 Anterior Cervical discectomy and Fusion, Instrumented Fusion c3-c6 Discharge Exam Vital Signs (Past 24 Hours): Last Vital Signs Temp 36.9 C 06/14/18 07:08 Pulse 86 06/14/18 10:39 Resp 20 06/14/18 07:52 BP 163/103 H 06/14/18 10:39 Pulse Ox 97 06/14/18 10:39 Physical Exam: General- oriented x 3, not in distress, speaks in sentences with no effort or accessory muscle use Eyes- anicteric Neck- no JVD, cervical collar in place Lungs- clear breath sounds bilaterally Heart- normal rate, regular rhythm; no murmurs Abdomen- normal bowel sounds, nondistended, soft, nontender Extremities- no pretibial edema, no calf tenderness Neuro- alert, oriented x 3; no gross focal neurologic deficits Skin- warm & dry Discharge Data Allergies Allergy/AdvReac Type Severity Reaction Status Date / Time Penicillins Allergy Unknown rash Verified 06/11/18 17:20 Consultations 06/11/18 17:42 ED Decision to Admit Stat 06/11/18 21:09 Consult Orthopedic Surgery Routine Procedures Performed Operation Date: 06/12/18 09:40 Actual Procedures p C4 Corpectomy, C5-C6 Anterior Cervical discectomy and Fusion, Instrumented Fusion c3-c6(Not Applicable) - Luis Wahl DO Ordered Studies 06/11/18 15:46 CT cervical spine wo con Stat IMPRESSION: 1. No acute fractures or dislocations identified 2. Suspected large right paracentral disc protrusion at the C3-4 level, suspected small small moderate central disc protrusion at the C4-5 level, and suspected small broad-based central disc protrusion at the C5-6 level. There is suspected significant canal narrowing at the C3-4 level with possible cord deformity. An MRI is recommended in follow-up given the limitations of CT scanning for diagnosis of disc disease. CT head/brain wo con Stat IMPRESSION: No acute intracranial findings 06/11/18 17:15 MR cervical spine wo con Stat IMPRESSION: 1. Large central disc extrusion at the C3-4 level with resulting cord compression. There is increased signal within the cord consistent with a secondary myelopathy 2. Moderate central disc protrusion at the C4-5 level with mild central cord deformity 3. Broad-based disc bulge/protrusion at the C5-6 level with secondary spinal stenosis, cord deformity, and increased signal within the left hemicord consistent with a secondary myelopathy. 06/12/18 12:00 FL cervical 2-3V Routine FL fluoroscopy <1hr Routine Hospital Course (1) Compression of spinal cord: per Dr. Hurtado notes: This is a 47yo M with a PMH of cervical disc disease, h/o narcotic addiction, OA and HTN who presents with right sided weakness that began last week and was found to have R sided weakness in the setting of spinal cord dysfunction due to cervical disc extrusion. -R sided weakness x 1 week in the setting of cervical disc disease -Cervical spine MRI with: * 1. Large central disc extrusion at the C3-4 level with resulting cord compression. There is increased signal within the cord consistent with a secondary myelopathy * 2. Moderate central disc protrusion at the C4-5 level with mild central cord deformity * 3. Broad-based disc bulge/protrusion at the C5-6 level with secondary spinal stenosis, cord deformity, and increased signal within the left hemicord consistent with a secondary myelopathy Operation Date: 06/12/18 09:40 Actual Procedures p C4 Corpectomy, C5-C6 Anterior Cervical discectomy and Fusion, Instrumented Fusion c3-c6(Not Applicable) - Luis Wahl, DO stable overall post op except for elevated BP, management as noted below cleared for discharge by Dr. Wahl ff up with Dr. Wahl as advised (2) History of narcotic addiction: Has been on Suboxone for years and is tapering dose (reports snorting medication) pain well controlled continue Suboxone on dishcarge (3) Cervical spinal stenosis: management per #1 (4) Hypertension: systolic BP in the 160s Amlodipine 5mg started BP improved in the afternoon to systolic 140s asymptomatic discharge on Amlodipine 5mg po daily outpatient ff up 06/18/18 emphasized adherence with medication and ff up to avoid complications like CAD, CVA, CKD, etc. he verbalized understanding and agreement Disposition:d/c home ff up with PCP next week ff up with Dr. Wahl as scheduled Total Time Total Time Spent Total Time Spent (In Minutes): 30 minutes Discharge Plan Discharge Items Patient Disposition: Home - Self-Care Reason For Visit: RUE/LUE WEAKNESS,CORD COMPRESSION AR C3/C4 Discharge Diagnosis: cervical stenosis with myelopathy Discharge Goals: Improve function Activity: Per 'Additional Instructions' section Non-emergency contact: Primary Care Provider Call non-emergency contact if: you have any medication questions Follow-up/Referrals: Luis Wahl, [Surgeon] - Diet: Regular and Heart Healthy Addtl Provider Instructions: PLEASE FOLLOW UP WITH DR ANDERS ON 06/18/2018 @ 2:45 PM FOR RE-EVALUATION REGARDING BLOOD PRESSURE CONTROL. ( Dr Lindquist is out of office next week ) CALL PRIMARY CARE PHYSICIAN OR RETURN TO ER IMMEDIATELY IF WITH LIGHTHEADEDNESS, DIZZINESS, WEAKNESS. FOLLOW UP WITH DR WAHL IN OFFICE IN A WEEK , PLEASE CALL OFFICE FOR APPOINTMENT ACTIVITY RECOMMENDATIONS: SELF CARE INSTRUCTIONS AFTER CERVICAL FUSIONS 1. No smoking. Smoking drastically decreases the chance of a solid fusion. 2. No bending, lifting more than 5 pounds, or twisting (roll like a log when turning in bed). 3. You may shower 3 days after surgery. Thoroughly dry wound. Do not soak in the tub. 4. Cervical collar: Must be worn at all times including sleeping. You may remove the brace only to bath, eat and if you are sitting in a recliner. 5. Please walk as much as you can for exercise. Gradually increase the distance that you walk as your endurance increases. SPECIAL CARE INSTRUCTIONS: VERY IMPORTANT TO READ AND REVIEW A. Do not take any anti-inflammatory medications (i.e. Indocin, Advil, Aspirin, Naprosyn, Aleve, Motrin, etc.) as these may inhibit the chance of a solid fusion. Tylenol is okay to take. B. Your surgical incision has been closed with a cosmetic suture under the skin that will dissolve in about 6 weeks. In 14 days, you can use a pair of clean scissors and cut the suture that is left outside of the skin at the ends of your incision. C. Complications are uncommon, but please contact us if you have any signs or symptoms of: 1. wound infection (fever higher than 102.5 degrees F, redness, separation of wound, drainage, or increasing pain from the incision) 2. blood clots in legs (pain, swelling, redness and warmth in legs) 3. urinary tract infection (fever higher than 102.5 degrees, burning upon urination or increased frequency of urination) 4. nerve problems (inability to walk on your toes or heels, numbness, loss of bowel or bladder control) 5. any other symptoms that concern you. D. Please call the office at if you have any concerns or questions about your operation or recovery. MANAGING PAIN AFTER SPINAL SURGERY 1. Narcotic medication is intended for short-term use and will be provided for surgical pain. Surgical pain usually lasts for a period of 4-6 weeks. Narcotic medication includes Percocet, Vicodin, Darvocet, Tylenol #3 or Lortab. 2. Longer-term pain is more appropriately treated with non-narcotic medication such as Tylenol ES. 3. Muscle spasm is not appropriately treated with narcotics. Muscle relaxers such as Soma, Flexeril or Skelaxin can be used along with Tylenol ES. 4. Remember that we all live with some "aches and pains". This is not unusual or uncommon after an injury or as we get older. 5. We will provide appropriate medication within the normal guidelines of their prescribed use. We will also be very cautious and aware of potential abuse and extended duration of patients' medication needs. 6. Please allow 2-3 days to process refills. Prescriptions will not be mailed but must be picked up at the office. FOLLOW UP VISIT: Keep your scheduled follow-up appointment. Any questions, please call the office at . Prescriptions: New amlodipine 5 mg tablet 5 mg PO DAILY Qty: 30 RF: 0 Continued buprenorphine-naloxone 8-2 mg tablet, sublingual 0.5 tab Sublingual BID RF: 0 Stand-Alone Forms: [employer], [facility]/Other Patient Handouts: Surgery Prevent DVT After, Amlodipine Discharge Orders: Discharge Order (Routine); Ordered 06/14/18 Ordered By: Luis Wahl Admission Data Admit Date/Time: 06/11/18 20:32 Attending Provider: David Scales Admit Provider: Miky Monroy Primary Care Provider: Tanya Santoyo Other Providers: Miky Monroy ; Luis Wahl Service: Surgical Services Other Interventions: Discharge Summary Assessment (RN) Last Done: 06/14/18 13:43 DC Date/Time DO NOT enter until pt leaves facility: 06/14/18 15:30
== END 2018-06-14 15:30 | disposition home or self-care (01) | DRG 472 ==
LOC: ED 15:29 → SUATTDRO 20:32 → 2W 20:32 → 3E 06-12 16:26

== ENCOUNTER 2023-11-11 16:20 | Inpatient (IN) ==
[2023-11-11] MEDS: KETOROLAC TROMETHAMINE 15 MG/ML VIAL IV STA (17:05)
[2023-11-11] MEDS: ONDANSETRON INJ 2 MG/ML 2 ML VIAL IV STA (17:05)
[2023-11-11] MEDS: SODIUM CHLORIDE 0.9% 500 ML IV ONE (17:06)
[2023-11-11 17:08] LABS: Basophils # (auto) 0.02 K/uL (0.00-0.20); Basophils % (auto) 0.2 %; Hematocrit (blood only) 48.8 % (42.0-52.0); Hemoglobin 16.2 g/dl (14.0-18.0); Immature Granulocytes # (auto) 0.02 K/uL (0.01-0.20); Immature Granulocytes % (auto) 0.2 %; Lymphocytes # (auto) 0.67 K/uL (1.20-3.40); Lymphocytes % (auto) 6.7 %; Mean Corpuscular Hemoglobin 28.5 pg (25.0-34.0); Mean Corpuscular Hgb Conc 33.2 g/dL (32.0-36.0); Mean Corpuscular Volume 85.9 fL (80.0-100.0); Mean Platelet Volume 11.3 fL (9.4-12.4); Monocytes # (auto) 0.58 K/uL (0.11-0.59); Monocytes % (auto) 5.8 %; Neutrophils # (auto) 8.78 K/uL (1.40-6.50); Neutrophils % (auto) 87.1 %; Platelet Count 325 K/uL (130-400); RDW Coefficient of Variation 13.2 % (11.5-14.5); RDW Standard Deviation 41.1 fL (36.4-46.3); Red Blood Count 5.68 M/uL (4.70-6.10); White Blood Count 10.07 K/ul (4.8-10.8)
--- NOTE | 2023-11-11 17:09 | XRay Report ---
XR chest 1V portable HISTORY: 53 years-old Male abd pain acute chest and abdominal pain COMPARISON: 06/11/2018 TECHNIQUE: AP view of the chest FINDINGS: Cardiomediastinal and hilar silhouettes are within normal limits. No pneumothorax or pleural effusion . Cervical spinal fusion hardware. Bones appear intact. Chronic mid left clavicular fracture deformit y. IMPRESSION: No acute process. ACT 112: Negative or not required by law. The above report was generated using voice recognition software. It may contain grammatical, syntax o r spelling errors. Electronically signed by: Lazaro Huynh M.D. 11/11/2023 5:08 PM
[2023-11-11 17:21] LABS: Albumin Level 3.7 gm/dl (3.4-5.0); BUN Creatinine Ratio 29.5 (10-20); Bilirubin Direct 0.1 mg/dl (0-0.2); Bilirubin,Total 0.5 mg/dl (0.2-1.0); Calcium 9.9 mg/dl (8.6-10.3); Creatinine Clr Calc Pharmacy 67.2 ml/min; Est GFR (African American) 93.5 ml/min; Est GFR (Non-African American) 80.7 ml/min; Potassium 4.2 mmol/L (3.5-5.1); Total Protein 7.8 gm/dl (6.0-8.3)
[2023-11-11 17:30] LABS: Partial Thromboplastin Time 27 Seconds (21-31); Prothrombin Time 11.1 Seconds (9.0-12.0)
[2023-11-11 17:31] LABS: Appearance Urine Clear (Clear); Bacteria Urine Automated None Seen (None Seen); Bilirubin Urine Negative (Negative); Blood Urine Negative (Negative); Color Urine Yellow; Glucose Urine UA Negative (Negative); Ketones Urine Negative (Negative); Leukocyte Esterase Urine Negative (Negative); Nitrite Urine Negative (Negative); Protein Urine 1+ (Negative); RBC Urine Automated 0-2 /hpf (0-2); Specific Gravity Urine 1.021 (1.000-1.030); Urobilinogen Urine Negative (Negative); WBC Urine Automated 0-5 /hpf (0-5); pH Urine 5.5 (4.5-7.5)
--- NOTE | 2023-11-11 19:21 | Emergency Department Note ---
History of Present Illness General Chief Complaint: Abdominal Pain Stated Complaint: ABD PAIN Time Seen by Provider: 11/11/23 16:47 History of Present Illness Provider Complaint: abdominal pain Onset (ago): 2 week(s) Pain Consistency: intermittent Location: diffuse Severity: moderate Maximum Pain Intensity: 5 Current Pain Intensity: 5 Quality: + stabbing and + sharp Relieved By: + nothing Exacerbated By: + nothing Context: no foreign travel, no possible food poisoning, no recent antibiotic use or no recent surgery/procedure Associated Symptoms: no nausea, no vomiting, no diarrhea, no fever, no chills, no constipation, no dysuria, no hematemesis, no hematochezia, no melena, no hematuria, no syncope, no headache, no back pain, no chest pain and no breathing difficulty Home Medications Medication Instructions Recorded Confirmed Type buprenorphine 8 mg-naloxone 2 mg 0.5 tab sublingual BID 06/11/18 06/11/18 History sublingual tablet amlodipine 5 mg tablet 5 mg PO DAILY #30 tabs 06/14/18 Rx Allergies Allergy/AdvReac Type Severity Reaction Status Date / Time Penicillins Allergy Unknown rash Verified 06/11/18 17:20 Past Med/Surg History Problem List (Updated 11/11/23 @ 23:08 by David Ken MD) Perforated chronic gastric ulcer (Acute) Perforated ulcer Cervical spinal stenosis Encounter for pre-operative examination Right-sided muscle weakness Cervical disc disease (Chronic) History of narcotic addiction (Chronic) Herniated vertebral disc (Acute) Compression of spinal cord (Acute) Hypertension (Chronic) Surgical History History of esophagogastroduodenoscopy (EGD) Family History Mother Diabetes Father Lung disease Social History Smoking Status: Unknown if ever smoked Cigarettes Per Day: 30; Second Hand Exposure: No; Do You Dip or Chew Tobacco: No; Hx Alcohol Use: No Hx Substance Use: Yes Substance Use Type Other:: opiates. Now on prescribed suboxone Preferred Language: Georgian Communication Ability: Effective Dirt Bike Racer Required: No Beliefs That Will Affect Care: None Current Living Situation: Alone Feels Safe at Home: Yes Assistive Devices: None Physical Exam 2 Vital Signs: Vital Signs - 24 hr 11/11/23 16:30 11/11/23 17:00 11/11/23 17:00 Temperature 36.6 C Temperature Source Temporal Artery Sc an Pulse Rate 113 H 104 H Pulse Rate from Sp O2 Sensor 103 H Respiratory Rate 20 24 Respiratory Effort / Characteristics Non-Labored Sponta neous Respiratory Depth Normal Blood Pressure 198/110 H 159/98 H Blood Pressure Renee n 139 119 Pulse Oximetry 97 96 Oxygen Delivery Me thod Room Air Sepsis Recent Feve r Within 48 Hours No Sepsis New/Unexpla ined Change in Men umesh Status N/A Sepsis Action Take n by Nursing No Action Required 11/11/23 17:10 11/11/23 17:13 11/11/23 17:30 Temperature Temperature Source Pulse Rate 98 H 87 Pulse Rate from Sp O2 Sensor 87 Respiratory Rate 19 Respiratory Effort / Characteristics Respiratory Depth Blood Pressure Blood Pressure Renee n Pulse Oximetry 97 93 Oxygen Delivery Me thod Room Air Room Air Sepsis Recent Feve r Within 48 Hours Sepsis New/Unexpla ined Change in Men umesh Status Sepsis Action Take n by Nursing 11/11/23 17:30 11/11/23 17:57 11/11/23 18:00 Temperature Temperature Source Pulse Rate 89 Pulse Rate from Sp O2 Sensor 88 Respiratory Rate 21 Respiratory Effort / Characteristics Respiratory Depth Blood Pressure 140/86 140/87 Blood Pressure Renee n 99 99 Pulse Oximetry 93 Oxygen Delivery Me thod Sepsis Recent Feve r Within 48 Hours Sepsis New/Unexpla ined Change in Men umesh Status Sepsis Action Take n by Nursing 11/11/23 18:00 11/11/23 18:24 11/11/23 18:30 Temperature Temperature Source Pulse Rate 87 90 Pulse Rate from Sp O2 Sensor 87 90 Respiratory Rate 22 22 Respiratory Effort / Characteristics Respiratory Depth Blood Pressure 140/87 Blood Pressure Renee n 99 Pulse Oximetry 94 98 Oxygen Delivery Me thod Room Air Sepsis Recent Feve r Within 48 Hours Sepsis New/Unexpla ined Change in Men umesh Status Sepsis Action Take n by Nursing 11/11/23 19:00 11/11/23 19:39 11/11/23 20:58 Temperature Temperature Source Pulse Rate 86 80 77 Pulse Rate from Sp O2 Sensor 86 80 Respiratory Rate 21 18 Respiratory Effort / Characteristics Respiratory Depth Blood Pressure 141/84 H 134/86 Blood Pressure Renee n 103 102 Pulse Oximetry 96 96 Oxygen Delivery Me thod Sepsis Recent Feve r Within 48 Hours Sepsis New/Unexpla ined Change in Men umesh Status Sepsis Action Take n by Nursing 11/11/23 21:45 11/11/23 21:57 11/11/23 22:00 Temperature Temperature Source Pulse Rate 77 77 Pulse Rate from Sp O2 Sensor 77 77 Respiratory Rate 17 18 Respiratory Effort / Characteristics Respiratory Depth Blood Pressure 150/93 H 146/89 H Blood Pressure Renee n 112 114 Pulse Oximetry 96 95 Oxygen Delivery Me thod Sepsis Recent Feve r Within 48 Hours Sepsis New/Unexpla ined Change in Men umesh Status Sepsis Action Take n by Nursing 11/11/23 22:24 11/11/23 22:27 11/11/23 22:30 Temperature Temperature Source Pulse Rate 77 85 Pulse Rate from Sp O2 Sensor 77 84 Respiratory Rate 20 16 Respiratory Effort / Characteristics Respiratory Depth Blood Pressure 142/92 H Blood Pressure Renee n 108 Pulse Oximetry 93 96 Oxygen Delivery Me thod Sepsis Recent Feve r Within 48 Hours Sepsis New/Unexpla ined Change in Men umesh Status Sepsis Action Take n by Nursing 11/11/23 22:36 11/11/23 23:00 Temperature Temperature Source Pulse Rate 83 Pulse Rate from Sp O2 Sensor 83 Respiratory Rate 18 Respiratory Effort / Characteristics Respiratory Depth Blood Pressure 131/83 Blood Pressure Renee n 106 Pulse Oximetry 95 Oxygen Delivery Me thod Sepsis Recent Feve r Within 48 Hours Sepsis New/Unexpla ined Change in Men umesh Status Sepsis Action Take n by Nursing Physical Exam: Physical Exam GENERAL: oriented to person, place, and time. appears well-developed and well- nourished. She does not appear distressed. HENT: Exam performed. -Head: Normocephalic and atraumatic. -Right Ear: External ear normal. No mastoid erythema -Left Ear: External ear normal. No mastoid erythema -Mouth/Throat: The oropharynx is clear and moist. No trismus in the jaw. No dental abscesses or uvula swelling. No oropharyngeal exudate or tonsillar abscesses. EYES: Conjunctivae and EOM are normal.Right eye exhibits no discharge. Left eye exhibits no discharge. No scleral icterus. NECK: Normal range of motion. Neck supple. No JVD present. No tracheal deviation and normal range of motion present. CV: Normal rate, regular rhythm, normal heart sounds and intact distal pulses. There is no peripheral edema. Palpable radial pulses bue. PULM/CHEST: Effort normal and breath sounds normal. No respiratory distress. No stridor. no wheezes.no rales. -Chest Wall: no tenderness to palpation ABD: The abdomen is soft. Bowel sounds are normal. no distension. No mass is present. There is diffuse tenderness to palpation. MUSC/SKEL: Normal range of motion. There is no peripheral edema, tenderness or deformity. NEURO: Motor and sensation grossly intact. SKIN: Skin is warm and dry. not diaphoretic. PSYCH: normal mood and affect. Behavior is normal. Judgment and thought content normal. Course Course 1647: The patient was evaluated in room B8. A complete history and physical exam was performed Cardiac monitoring: An order was placed for continuous cardiac monitoring. The monitor shows a rate of 90 with sinus rhythm interpreted by me Given the patient's low BMI will obtain CT of the abdomen pelvis with oral and IV contrast. 1710: Chest x-ray showed no free air under the diaphragm. 2238: Received a call from radiology and they state that the patient has a perforated gastric ulcer. Discussed case with on-call general surgery Reynaldo Ngo on for Dr. Reed and he states he will be down to evaluate the patient. Zosyn ordered for the patient. 2306: at bedside and states he will take the patient to the OR. Administered Medications Sodium Chloride (Nss) 1,000 mls @ 999 mls/hr IV .Q1H1M ONE Stop: 11/11/23 23:30 Last Admin: 11/11/23 22:50 Dose: 999 mls/hr Documented By: NERI Discontinued Medications Sodium Chloride (Nss) 500 mls @ 999 mls/hr IV .Q31M ONE Stop: 11/11/23 17:18 Last Infusion: 11/11/23 18:01 Dose: Infused Documented By: Admin: 11/11/23 17:06 Dose: 999 mls/hr Documented By: LORENA Piperacillin Sod/Tazobactam Sod (Zosyn) 4.5 gm in 120 mls @ 240 mls/hr IV NOW ONE Stop: 11/11/23 22:59 Last Admin: 11/11/23 22:50 Dose: 240 mls/hr Documented By: NERI Ioversol (Optiray 320 100ml) 94 ml IV ONCE ONE Stop: 11/11/23 19:57 Last Admin: 11/11/23 19:56 Dose: 94 ml Documented By: TRISTIAN Ketorolac Tromethamine (Ketorolac Tromethamine 15 Mg/Ml Vial) 15 mg IV NOW STA Stop: 11/11/23 16:49 Last Admin: 11/11/23 17:05 Dose: 15 mg Documented By: LORENA Ondansetron HCl (Ondansetron Inj 2 Mg/Ml 2 Ml Vial) 4 mg IV NOW STA Stop: 11/11/23 16:49 Last Admin: 11/11/23 17:05 Dose: 4 mg Documented By: LORENA Medical Decision Making Laboratory Data Attestation: I reviewed the patient's lab results. 11/11/23 16:46 11/11/23 16:46 Lab Results 11/11/23 Range/Units 16:46 WBC 10.07 (4.8-10.8) K/ul RBC 5.68 (4.70-6.10) M/uL Hgb 16.2 (14.0-18.0) g/dl Hct 48.8 (42.0-52.0) % MCV 85.9 (80.0-100.0) fL MCH 28.5 (25.0-34.0) pg MCHC 33.2 (32.0-36.0) g/dL RDW Std Deviation 41.1 (36.4-46.3) fL RDW Coeff of Rabia 13.2 (11.5-14.5) % Plt Count 325 (130-400) K/uL MPV 11.3 (9.4-12.4) fL Immature Gran % (Auto) 0.2 % Neut % (Auto) 87.1 % Lymph % (Auto) 6.7 % Ford % (Auto) 5.8 % Eos % (Auto) 0.0 % Baso % (Auto) 0.2 % Neut # (Auto) 8.78 H (1.40-6.50) K/uL Lymph # (Auto) 0.67 L (1.20-3.40) K/uL Ford # (Auto) 0.58 (0.11-0.59) K/uL Eos # (Auto) 0.00 (0.00-0.50) K/uL Baso # (Auto) 0.02 (0.00-0.20) K/uL Immature Gran # (Auto) 0.02 (0.01-0.20) K/uL PT 11.1 (9.0-12.0) Seconds INR 1.0 (0.9-1.1) APTT 27 (21-31) Seconds PTT Ratio 1.0 Sodium 135 L (136-145) mmol/L Potassium 4.2 (3.5-5.1) mmol/L Chloride 97 L (98-107) mmol/L Carbon Dioxide 29 (21-32) mmol/L Anion Gap 9 (3-11) BUN 31 H (6-23) mg/dl Creatinine 1.05 (0.6-1.4) mg/dl Est Cr Clr Drug Dosing 67.2 ml/min Est GFR ( Amer) 93.5 ml/min Est GFR (Non-Af Amer) 80.7 ml/min BUN/Creatinine Ratio 29.5 H (10-20) Glucose 125 H (70-99(Fasting)) mg/dl Calcium 9.9 (8.6-10.3) mg/dl Total Bilirubin 0.5 (0.2-1.0) mg/dl Direct Bilirubin 0.1 (0-0.2) mg/dl AST 8 L (13-39) U/L ALT 6 L (7-52) U/L Alkaline Phosphatase 73 (34-104) U/L Total Protein 7.8 (6.0-8.3) gm/dl Albumin 3.7 (3.4-5.0) gm/dl Lipase 6 L (11-82) U/L Urine Color Yellow Urine Appearance Clear (Clear) Urine pH 5.5 (4.5-7.5) Ur Specific [place] 1.021 (1.000-1.030) Urine Protein 1+ H (Negative) Urine Glucose (UA) Negative (Negative) Urine Ketones Negative (Negative) Urine Blood Negative (Negative) Urine Nitrite Negative (Negative) Urine Bilirubin Negative (Negative) Urine Urobilinogen Negative (Negative) Ur Leukocyte Esterase Negative (Negative) Urine WBC (Auto) 0-5 (0-5) /hpf Urine RBC (Auto) 0-2 (0-2) /hpf U Hyaline Cast (Auto) 6-10 H (0-2) /lpf U Epithel Cells (Auto) 3-5 H (0-2) /hpf Urine Bacteria (Auto) None Seen (None Seen) Imaging Data Radiologist's Impression: Abdomen/Pelvis CT 11/11/23 16:59 CR Exam(s): CT ABDOMEN + PELVIS With Contrast Oral - High Density Amt: gastrograffin, IV Amt: 94ml optiray 320 EXAM: CT Abdomen and Pelvis With Intravenous Contrast CLINICAL HISTORY: Reason for exam: abd pain. TECHNIQUE: Axial computed tomography images of the abdomen and pelvis with intravenous contrast. CTDI is 9.97 mGy and DLP is 506.64 mGy-cm. Automated exposure control was utilized for the study. A dose lowering technique was utilized adhering to the principles of ALARA. CONTRAST: Patient received gastrograffin of Oral - High Density and 94ml optiray 320 of IV contrast COMPARISON: No relevant prior studies available. FINDINGS: ABDOMEN: Liver: Unremarkable. Gallbladder and bile ducts: Unremarkable. Pancreas: Unremarkable. Spleen: Unremarkable. Adrenals: Unremarkable. Kidneys and ureters: Unremarkable. No obstructing stones. No hydronephrosis. Stomach and bowel: : Perforated gastric ulcer along the undersurface of the gastric antrum. Large amount of extraluminal contrast, fluid, and free air throughout the left hemiabdomen. Full size of this collection difficult to measure, approximately 14.5 x 6.5 x 5.5 cm. Severe inflammation of the small bowel particularly within the left hemiabdomen adjacent to the fluid collection. PELVIS: Appendix: No findings to suggest acute appendicitis. Bladder: Unremarkable. Reproductive: Unremarkable as visualized. ABDOMEN and PELVIS: Intraperitoneal space: scattered free fluid and free air throughout the abdomen and pelvis. Bones/joints: No acute fracture. Soft tissues: Unremarkable. Vasculature: Aortobiiliac atherosclerotic calcifications. Lymph nodes: Unremarkable. IMPRESSION: 1. Perforated gastric ulcer along the undersurface of the gastric antrum. Large amount of extraluminal contrast, fluid, and free air throughout the left hemiabdomen. Full size of this collection difficult to measure, approximately 14.5 x 6.5 x 5.5 cm. 2. Severe inflammation of the small bowel particularly within the left hemiabdomen adjacent to the fluid collection. Communications: Call Doctor Pneumoperitoneum, new or unexpected Electronically signed by: Lebron Guevara MD 11/11/23 22:28 PM Chest X-Ray 11/11/23 17:00 XR chest 1V portable HISTORY: 53 years-old Male abd pain acute chest and abdominal pain COMPARISON: 06/11/2018 TECHNIQUE: AP view of the chest FINDINGS: Cardiomediastinal and hilar silhouettes are within normal limits. No pneumothorax or pleural effusion. Cervical spinal fusion hardware. Bones appear intact. Chronic mid left clavicular fracture deformity. IMPRESSION: No acute process. ACT 112: Negative or not required by law. The above report was generated using voice recognition software. It may contain grammatical, syntax or spelling errors. Electronically signed by: Lazaro Huynh M.D. 11/11/2023 5:08 PM [facility] Narrative 1647: The patient was evaluated in room B8. A complete history and physical exam was performed Cardiac monitoring: An order was placed for continuous cardiac monitoring. The monitor shows a rate of 90 with sinus rhythm interpreted by me Given the patient's low BMI will obtain CT of the abdomen pelvis with oral and IV contrast. 1710: Chest x-ray showed no free air under the diaphragm. 2238: Received a call from radiology and they state that the patient has a perforated gastric ulcer. Discussed case with on-call general surgery Reynaldo Ngo on for Dr. Reed and he states he will be down to evaluate the patient. Zosyn ordered for the patient. 2306: at bedside and states he will take the patient to the OR. Impression & Plan Perforated chronic gastric ulcer Discharge Plan Visit Data Chief Complaint: Abdominal Pain Stated Complaint: ABD PAIN ED Provider: David Ken Discharge Problem: Perforated chronic gastric ulcer Patient Disposition: Being Evaluated by Surgeon Forms Stand Alone Forms: My [facility] [employer] Prescriptions Prescriptions: No Action buprenorphine-naloxone 8-2 mg tablet, sublingual 0.5 tab Sublingual BID amlodipine 5 mg tablet 5 mg PO DAILY Qty: 30 0RF Rx Instructions: start taking on June 15, 2018 Referrals Referrals: Tanya Lindquist MD [Primary Care Provider] -
[2023-11-11] MEDS: OPTIRAY 320 100ml IV ONE (19:56)
--- NOTE | 2023-11-11 22:30 | CT Scan Report ---
Exam(s): CT ABDOMEN + PELVIS With Contrast Oral - High Density Amt: gastrograffin, IV Amt: 94ml optiray 320 EXAM: CT Abdomen and Pelvis With Intravenous Contrast CLINICAL HISTORY: Reason for exam: abd pain. TECHNIQUE: Axial computed tomography images of the abdomen and pelvis with intravenous contrast. CTDI is 9.97 mGy and DLP is 506.64 mGy-cm. Automated exposure control was utilized for the study. A dose lowering technique was utilized adhering to the principles of ALARA. CONTRAST: Patient received gastrograffin of Oral - High Density and 94ml optiray 320 of IV contrast COMPARISON: No relevant prior studies available. FINDINGS: ABDOMEN: Liver: Unremarkable. Gallbladder and bile ducts: Unremarkable. Pancreas: Unremarkable. Spleen: Unremarkable. Adrenals: Unremarkable. Kidneys and ureters: Unremarkable. No obstructing stones. No hydronephrosis. Stomach and bowel: : Perforated gastric ulcer along the undersurface of the gastric antrum. Large amount of extraluminal contrast, fluid, and free air throughout the left hemiabdomen. Full size of this collection difficult to measure, approximately 14.5 x 6.5 x 5.5 cm. Severe inflammation of the small bowel particularly within the left hemiabdomen adjacent to the fluid collection. PELVIS: Appendix: No findings to suggest acute appendicitis. Bladder: Unremarkable. Reproductive: Unremarkable as visualized. ABDOMEN and PELVIS: Intraperitoneal space: scattered free fluid and free air throughout the abdomen and pelvis. Bones/joints: No acute fracture. Soft tissues: Unremarkable. Vasculature: Aortobiiliac atherosclerotic calcifications. Lymph nodes: Unremarkable. IMPRESSION: 1. Perforated gastric ulcer along the undersurface of the gastric antrum. Large amount of extraluminal contrast, fluid, and free air throughout the left hemiabdomen. Full size of this collection difficult to measure, approximately 14.5 x 6.5 x 5.5 cm. 2. Severe inflammation of the small bowel particularly within the left hemiabdomen adjacent to the fluid collection. Communications: Call Doctor Pneumoperitoneum, new or unexpected Electronically signed by: Lebron Guevara MD 11/11/23 22:28 PM
[2023-11-11] MEDS: SODIUM CHLORIDE 0.9% 1,000 ML IV ONE (22:50)
[2023-11-11] MEDS: PIPERACILLIN/TAZOBACTAM 4.5 GM/120 ML BAG IV ONE (22:50)
--- NOTE | 2023-11-11 22:53 | History & Physical Report ---
Date of Service November 11, 2023 Assessment & Plan (1) Perforated ulcer: Plan: Due to the patient's clinical presentation and findings on imaging we will proceed as follows: She will be admitted to the surgical service He will be kept n.p.o. Analgesia to be provided Antiemetics will be provided Will hydrate the patient aggressively with intravenous fluids Antibiotics in the form of Zosyn have been ordered by the treating emergency room physician and these will be continued Will order intravenous Protonix Will check a baseline EKG At the present time the patient is normotensive without tachycardia or fever. He also does not have leukocytosis or acute kidney injury. Due to the findings on CAT scan as well as his physical exam findings patient will be taken emergently to the operating room for exploratory laparotomy by Dr. Jacome Additional recommendations be forthcoming based on his clinical course as unfolds Will use SCDs for DVT prevention, no chemical means due to planned surgery He will be a level 1 full code History of Present Illness Primary Care Provider: Tanya Lindquist MD This is a 53-year-old male who presented to the emergency department secondary to abdominal pain. Patient notes that he has had abdominal pain for "months" but has gotten considerably worse over the past 2 to 3 days. He notes that the pain is throughout his entire abdomen in a generalized fashion and is worse with movement. He notes that it is not really palliated by anything other than medicines administered in the emergency department. The patient does report a history of a gastric ulcer in the past and this was treated endoscopically and he believes this was approximately 9 years ago. Because of this symptomatology he did present to the emergency department. He notes that his most recent oral intake was some water that he had approximately 6 hours ago. He denies any prior abdominal surgeries. Since arrival to the hospital the patient has had labs and imaging which I independently reviewed labs included CBC her white blood cell count, hemoglobin, hematocrit, and platelet count were normal. Coagulation studies were noted to be within the normal range. Chemistry profile showed sodium was 135 with a normal potassium. BUN and creatinine were 31 and 1.0. There is no elevation of patient's LFTs or lipase and urinalysis was not indicative of infection. He did have a chest x-ray that showed no acute process. He did undergo a CT scan of the abdomen pelvis. This showed the patient had findings concerning for perforated gastric ulcer along the undersurface of the gastric antrum. There is a large amount of extraluminal contrast, fluid, and free fluid throughout the left hemiabdomen. At the time of my interview the patient was noted to be hemodynamically stable and he was in no distress. Allergies Allergy/AdvReac Type Severity Reaction Status Date / Time Penicillins Allergy Unknown rash Verified 06/11/18 17:20 Home Medications Medication Instructions Recorded Confirmed Type buprenorphine 8 mg-naloxone 2 mg 0.5 tab sublingual BID 06/11/18 06/11/18 History sublingual tablet amlodipine 5 mg tablet 5 mg PO DAILY #30 tabs 06/14/18 Rx Past Med/Surg History Problem List (Updated 11/11/23 @ 23:35 by Narciso Wood MD) Perforated chronic gastric ulcer (Acute) Cervical spinal stenosis Encounter for pre-operative examination Right-sided muscle weakness Cervical disc disease (Chronic) Herniated vertebral disc (Acute) Compression of spinal cord (Acute) Medical History (Updated 11/11/23 @ 23:35 by Narciso Wood MD) Perforated ulcer History of narcotic addiction Hypertension Surgical History History of esophagogastroduodenoscopy (EGD) Family History Mother Diabetes Father Lung disease Social History Smoking Status: Unknown if ever smoked Cigarettes Per Day: 30; Second Hand Exposure: No; Do You Dip or Chew Tobacco: No; Hx Alcohol Use: No Hx Substance Use: Yes Substance Use Type Other:: opiates. Now on prescribed suboxone Preferred Language: Omani Communication Ability: Effective Lang Path Therapist Required: No Beliefs That Will Affect Care: None Current Living Situation: Alone Feels Safe at Home: Yes Assistive Devices: None Physical Exam Constitutional: + thin; no acute distress Eyes: no conjunctival abnormality ENMT: Ears: no hearing impairment and no external ear abnormality Mouth: no oropharynx abnormality Neck: trachea midline Respiratory: normal respiratory effort; no respiratory distress and no labored breathing Cardiovascular: Rate/Rhythm: regular rate and regular rhythm Gastrointestinal (Abdomen): Patient's abdomen is noted to be tender throughout his entire abdomen and generalized fashion with abdominal rigidity as well as as rebound tenderness. Musculoskeletal: No calf tenderness Skin: no rashes Neurologic: moves all extremities Psychiatric: Orientation: alert and oriented x 3 Affect: + flat affect Results & Data Results & Data Vital Signs (Past 12 Hours) Vital Signs Temp Pulse Resp BP Pulse Ox O2 Del Method 11/11/23 21:45 77 17 150/93 H 96 11/11/23 20:58 77 11/11/23 19:39 80 18 134/86 96 11/11/23 19:00 86 21 141/84 H 96 11/11/23 18:30 90 22 98 Room Air 11/11/23 18:24 87 22 94 11/11/23 18:00 140/87 11/11/23 18:00 140/87 11/11/23 17:57 89 21 93 11/11/23 17:30 140/86 11/11/23 17:30 87 19 93 Room Air 11/11/23 17:13 97 Room Air 11/11/23 17:10 98 H 11/11/23 17:00 159/98 H 11/11/23 17:00 104 H 24 96 11/11/23 16:30 36.6 C 113 H 20 198/110 H 97 Room Air Supervising Physician Co-Signing Physician Notes As per Reynaldo Alejandro physician lab assistant Patient is been sick since Sunday according to his mother did not want to come into the hospital in fact the it a regular diet today Patient has an acute abdomen generalized tenderness CT scan was reviewed minimal amount of pneumoperitoneum I cannot specifically state I received the site of the extravasation but the report was reviewed The procedure was explained to patient which be an open procedure abdominal washout and if there is a perforation likely a Bubba patch All question answered permit signed PG Care Time/CCT Total # of Minutes Spent Total Time Spent with Patient: Total time spent is greater than 50% in coordination of care (as documented) at patient's floor/unit and/or counseling patient: Coding Level of Care Code 82091 INT INP/OBS CARE MIN Diagnoses Perforated ulcer K27.5
[2023-11-11] MEDS: PANTOprazole 40 MG in SYRINGE 0 ML IV ONE (23:09)
[2023-11-11] MEDS: SODIUM CHLORIDE 0.9% 1,000 ML IV SCH (23:10)
[2023-11-11] MEDS ORDERED: ONDANSETRON INJ 2 MG/ML 2 ML VIAL ONE (23:18)
[2023-11-11] MEDS ORDERED: PROPOFOL IV EMULSION 10 MG/ML 20 ML VIAL IV ONE (23:18)
[2023-11-11] MEDS ORDERED: ROCURONIUM BROMIDE 10 MG/ML 5 ML VIAL IV ONE (23:18)
[2023-11-11] MEDS ORDERED: LIDOCAINE 2% 2 ML VIAL/AMP(20MG/ML) INFIL ONE (23:18)
[2023-11-11] MEDS ORDERED: SUCCINYLCHOLINE CHLORIDE 20 MG/ML 10 ML VIAL IV ONE (23:18)
[2023-11-11] MEDS ORDERED: DEXAMETHASONE SOD INJ 4 MG/ML VIAL ONE (23:18)
[2023-11-11] MEDS ORDERED: PHENYLEPHRINE HCL 10 MG/ML VIAL ONE (23:18)
[2023-11-11] MEDS ORDERED: ePHEDrine sulfate 50 MG/5 ML SYR ONE (23:18)
[2023-11-11] MEDS ORDERED: SUGAMMADEX SODIUM 200 MG/2 ML VIAL IV ONE (23:19)
[2023-11-11] MEDS ORDERED: fentaNYL citrate PF 100 MCG/2 ML VIAL ONE (23:19)
[2023-11-11] MEDS ORDERED: MIDAZOLAM HCL 1 MG/ML 2ML VIAL ONE (23:19)
[2023-11-11] MEDS ORDERED: HYDROmorphone INJ 1 MG/ML SYRINGE ONE (23:19)
[2023-11-11] MEDS ORDERED: ALBUMIN HUMAN 5% 12.5 GM/250 ML VIAL IV ONE (23:22)
[2023-11-11] MEDS ORDERED: ACETAMINOPHEN 1000 MG/100 ML IV IV ONE (23:22)
[2023-11-11 23:30] LABS: Partial Thromboplastin Ratio 1.1; Partial Thromboplastin Time 30 Seconds (21-31); Prothrombin Time 10.9 Seconds (9.0-12.0)
--- NOTE | 2023-11-11 23:31 | Anesthesiology Consultation ---
Date of Service November 11, 2023 Assessment & Plan (1) Encounter for pre-operative examination: Chart Review Chart Review: Acceptable Risk for Surgery and Patient NOT seen in Pre Admission Testing Consults Requested none History Surgery Operation Date: 11/11/23 11:30 Proposed Procedures p Bowel Resection - Peter Jacome MD, FACS Height/Weight Height: 5 ft 10 in Weight: 58.4 kg Allergies Allergy/AdvReac Type Severity Reaction Status Date / Time Penicillins Allergy Unknown rash Verified 06/11/18 17:20 Medications Home Medications Medication Instructions Recorded Confirmed Last Taken buprenorphine 8 mg-naloxone 2 mg 0.5 tab sublingual BID 06/11/18 06/11/18 06/11/18 14:00 sublingual tablet amlodipine 5 mg tablet 5 mg PO DAILY #30 tabs 06/14/18 Unknown Active Medications Generic Name Dose Route Start Last Admin Trade Name Freq PRN Reason Stop Dose Admin Sodium Chloride 1,000 mls @ 125 mls/hr 11/11/23 22:45 11/11/23 23:10 Nss IV 12/11/23 22:44 125 mls/hr .Q8H PREETHI Administration NPO Date Last Intake of Fluids: 11/11/23 Time Last Intake of Fluids: 16:30 Date Last Intake of Solids: 11/11/23 Time Last Intake of Solids: 10:30 Past Medical History Medical History (Updated 11/11/23 @ 23:35 by Narciso Wood MD) Perforated ulcer History of narcotic addiction Hypertension Past Family History Family History Mother Diabetes Father Lung disease Past Surgical History Surgical History History of esophagogastroduodenoscopy (EGD) ACDF 2019 Past Anesthesia History No Hx of Anesthesia Complications and No Family Hx of Anesthesia Complications Social History Smoking Status: Unknown if ever smoked tobacco type: cigarettes Smoking cigarettes per day: 30 Do You Dip or Chew Tobacco: No Hx Alcohol Use: No Hx Substance Use: Yes substance use type: opiates Substance Use Type Other:: opiates. Now on prescribed suboxone Physical Exam Vital Signs Last Vital Signs Temp 36.7 C 11/11/23 23:27 Pulse 77 11/11/23 23:15 Resp 18 11/11/23 23:15 BP 137/81 11/11/23 23:15 Pulse Ox 93 11/11/23 23:15 O2 Del Method Room Air 11/11/23 23:15 Testing Laboratory Results 11/11/23 16:46 11/11/23 16:46 PT 10.9 Seconds (9.0-12.0) 11/11/23 22:43 INR 1.0 (0.9-1.1) 11/11/23 22:43 APTT 30 Seconds (21-31) 11/11/23 22:43 Urine Color Yellow 11/11/23 16:46 Urine Appearance Clear (Clear) 11/11/23 16:46 Urine pH 5.5 (4.5-7.5) 11/11/23 16:46 Ur Specific Ray 1.021 (1.000-1.030) 11/11/23 16:46 Urine Protein 1+ (Negative) H 11/11/23 16:46 Urine Glucose (UA) Negative (Negative) 11/11/23 16:46 Urine Ketones Negative (Negative) 11/11/23 16:46 Urine Nitrite Negative (Negative) 11/11/23 16:46 Ur Leukocyte Esterase Negative (Negative) 11/11/23 16:46 Urine WBC (Auto) 0-5 /hpf (0-5) 11/11/23 16:46 Urine RBC (Auto) 0-2 /hpf (0-2) 11/11/23 16:46 U Hyaline Cast (Auto) 6-10 /lpf (0-2) H 11/11/23 16:46 U Epithel Cells (Auto) 3-5 /hpf (0-2) H 11/11/23 16:46 Urine Bacteria (Auto) None Seen (None Seen) 11/11/23 16:46 Electrocardiogram Date: 11/11/23 HR 75 Normal sinus rhythm Normal ECG When compared with ECG of 11-JUN-2018 16:02, No significant change was found
[2023-11-11] MEDS ORDERED: ONDANSETRON INJ 2 MG/ML 2 ML VIAL IV PRN (23:35)
[2023-11-11] MEDS ORDERED: HYDROmorphone INJ 2 MG/ML SYR/VIAL IV PRN (23:35)
[2023-11-11] MEDS ORDERED: ATROPINE SULFATE 0.1 MG/ML 10ML SYR IV PRN (23:35)
[2023-11-11] MEDS ORDERED: PROMETHAZINE HCL 6.25 MG in SODIUM CHLORIDE 0.9% 50 ML IV PRN (23:35)
[2023-11-11] MEDS ORDERED: ePHEDrine sulfate 50 MG/ML AMP IV PRN (23:35)
[2023-11-11] MEDS ORDERED: KETAMINE HCL 10MG/ML SYR ONE (23:38)
--- NOTE | 2023-11-12 01:06 | Post Operative Brief Note ---
Immediate Post Op Note Date of Surgery November 12, 2023 Pre & Post Diagnosis Operation Date: 11/11/23 11:30 Pre-Op Diagnosis: Perforated Ulcer Post-Op Diagnosis: Perforated Ulcer I identified the patient and participated in the time-out.: Yes Procedure Operation Date: 11/11/23 11:30 Actual Procedures p Exploratory Laparotomy, Repair of Gastric Ulcers, Biopsy intra abdominal nodes, Perforation of Posterior Wall Repair(Not Applicable) - Peter Jacome MD, FACS Surgeon Peter Jacome MD, FACS Metal Fabrication Supervisor Andra BARRAGAN Estimated Blood Loss 10 Findings Consistent with Post-Op Diagnosis Drains Rufino Drain and [place] Drain
--- NOTE | 2023-11-12 01:28 | Operative Report ---
PG Post Operative Report Pre & Post Diagnosis Operation Date: 11/11/23 11:30 Pre-Op Diagnosis: Perforated Ulcer Post-Op Diagnosis: Perforated Ulcer I identified the patient and participated in the time-out.: Yes Procedure Operation Date: 11/11/23 11:30 Actual Procedures p Exploratory Laparotomy, abdominal washout and Bubba patch repair perforated posterior gastric ulceration biopsy of the ulcer multiple enlarged lymphadenopathy biopsy (Not Applicable) - Peter Jacome MD, FACS The patient was brought into the operating theater general endotracheal anesthesia the abdomen was prepped Betadine solution properly draped systemic antibiotics on board a timeout was had patient identified we made a 10 cm incision upper midline between the xiphoid and the umbilical area deepened through subcutaneous tissue cautery was used to control some bleeding vessels and we entered through the midline into the abdomen patient had enlarged dilated colon but we could see some turbid drainage fluids nonodorous overlying the viscera this point cultures were taken then we extended the incision more cephalad to the point that we were able then to thoroughly wash out the abdomen with multiple liters of saline make sure we irrigated above the liver down in the pelvic area and the gutters and between multiple loops of small bowel while we were going to washout I can feel multiple lymph nodes some and about 2 cm so inside mostly localized in the omentum a few localized in the mesentery of the small bowel and generalized area the liver was free of any nodularities cannot definitively feel any retroperitoneal nodes once we had completely washed out her attention was turned to the left upper quadrant where the stomach midportion was sort of fixed of the small bowel and NG tube had been positioned in approximately 65 under direct palpation and as we elevated the greater curvature of the stomach and remove the small bowel just approximately 15 to 20 cm distal to the ligament of Treitz this was walling off a perforation of the posterior wall of the stomach along the lesser curvature the wall itself appeared to be free of any pathology the perforation was approximately a centimeter or so in size this point I did take a biopsy of this wall suspicious that may be with the lymphadenopathy possibility of a lymphoma once we had freed up all the small bowel and ran a completely I cannot feel any more nodularities especially in the wall of the small bowel and 3-0 interrupted sutures was used taking bites of either side of the ulceration not tying it then we brought a tongue of omentum from the greater omentum and later on there and using these sutures to tie it down as a Bubba patch having completed this we irrigated again the abdomen multiple times and we placed a 19 Rufino drain through a stab wound in left upper quadrant and we positioned it near the gastric perforation repair then the wound was closed with a continuous #1 Prolene starting 1 cephalad and 1 caudad and tied in the middle quarter inch Chris drain was placed in the subcu attachment distal aspect of the incision with 3-0 silk suture and bal for skin edges dressing was applied the procedure was tolerated well by the patient estimated blood loss 10 cc Addendum Reynaldo Alejandro physician congressional assistant was present throughout the procedure and helped the retraction exposure wound closure Spoke with patient's mother in the waiting area Surgeon Peter Jacome MD, FACS Slip Dumper Andra BARRAGAN Estimated Blood Loss 10 Findings Consistent with Post-Op Diagnosis Posterior gastric wall perforation of along the lesser curvature approximately a centimeter or so in size Generalized intra-abdominal lymphadenopathy Specimens Gastric ulcer biopsy Lymph nodes intra-abdominal Drains 19 Rufino position near the site of the gastric perforation repair Complications None Indications Intestinal perforation free air Description of Procedure merda I attest to the content of the Intraoperative Record and any orders documented therein. Any exceptions are noted below.
--- NOTE | 2023-11-12 01:33 | Anesthesiology Progress Note ---
Date of Service November 12, 2023 Anesthesia Post Procedure Vital Signs Vital Signs: Temp Pulse Resp BP Pulse Ox O2 Del Method 11/11/23 23:27 36.7 C 11/11/23 23:15 77 18 137/81 93 Room Air 11/11/23 23:00 131/83 11/11/23 22:36 83 18 95 11/11/23 22:30 142/92 H 11/11/23 22:27 85 16 96 11/11/23 22:24 77 20 93 11/11/23 22:00 146/89 H 11/11/23 21:57 77 18 95 11/11/23 21:45 77 17 150/93 H 96 11/11/23 20:58 77 11/11/23 19:39 80 18 134/86 96 11/11/23 19:00 86 21 141/84 H 96 11/11/23 18:30 90 22 98 Room Air 11/11/23 18:24 87 22 94 11/11/23 18:00 140/87 11/11/23 18:00 140/87 11/11/23 17:57 89 21 93 11/11/23 17:30 140/86 11/11/23 17:30 87 19 93 Room Air 11/11/23 17:13 97 Room Air 11/11/23 17:10 98 H 11/11/23 17:00 159/98 H 11/11/23 17:00 104 H 24 96 11/11/23 16:30 36.6 C 113 H 20 198/110 H 97 Room Air Pain Intensity Lower Abdomen: Pain Intensity: 5 Transfer of Care Handoff Completed per policy Notes Mental Status: alert / awake / arousable and participated in evaluation Patient Amnestic to Procedure: Yes Nausea / Vomiting: adequately controlled Pain: adequately controlled Airway Patency, RR, SpO2: stable & adequate BP & HR: stable & adequate Hydration State: stable & adequate Anesthetic Complications: no major complications apparent and Pt Satisfied with anesthetic care
[2023-11-12] MEDS: fentaNYL citrate PF 100 MCG/2 ML VIAL IV PRN (01:59)
[2023-11-12] MEDS ORDERED: ACETAMINOPHEN 1,000 MG/100 ML VIAL IV PRN (03:28)
[2023-11-12] MEDS: SODIUM CHLORIDE 0.9% 1,000 ML IV SCH (03:38)
[2023-11-12] MEDS: PIPERACILLIN/TAZOBACTAM 4.5 GM in DEXTROSE 5% MINI-B 100 ML IV SCH (03:54)
[2023-11-12] MEDS: fentaNYL citrate PF 100 MCG/2 ML VIAL ONE (04:49)
[2023-11-12 06:35] LABS: Hematocrit (blood only) 39.7 % (42.0-52.0); Mean Corpuscular Hemoglobin 27.8 pg (25.0-34.0); Mean Corpuscular Hgb Conc 32.7 g/dL (32.0-36.0); Mean Corpuscular Volume 84.8 fL (80.0-100.0); Mean Platelet Volume 11.2 fL (9.4-12.4); Platelet Count 218 K/uL (130-400); RDW Coefficient of Variation 13.1 % (11.5-14.5); RDW Standard Deviation 40.6 fL (36.4-46.3); Red Blood Count 4.68 M/uL (4.70-6.10); White Blood Count 7.82 K/ul (4.8-10.8)
--- NOTE | 2023-11-12 06:44 | Hospitalist Consultation ---
Date of Consultation November 12, 2023 Assessment & Plan (1) Perforated chronic gastric ulcer: Final Assessment and Recommendations as follows : Perforated gastric ulcer status post surgery History of PUD Hypertensive urgency secondary to discomfort, IVF, home medication noncompliance Hyponatremia Hyperglycemia rule out DM opioid addiction as per records ongoing tobacco abuse Medical telemetry transfer to facilitate [id number] IV beta-swetha administration while patient strictly n.p.o. (Metoprolol 2.5 mg IV every 6 hours) Initiate losartan for maintenance BP control once patient allowed pills. Patient counseled regarding need to take maintenance BP meds on discharge. Analgesia Decrease maintenance IVF given uncontrolled BP and hyponatremia with a.m. blood work (Patient has received more than 2 L of IVF overnight, possible SIADH with further decrease in serum sodium) Agree with PPI for PUD Check hemoglobin A1c Nicotine patch DVT prophylaxis. SCDs as per postop orders Reynaldo Ngo PA-C of General Surgery agreeable to recommendation to transfer patient to monitored unit. Thank you very much for this consultation. Dr. Lopez will follow patient's progress. Text document was generated using [employer] voice recognition software. It may contain grammatical or spelling errors. Kindly contact undersigned for clarification of any documentation item in question. History of Present Illness Reason for Consultation: Hypertension, medical management Requesting Physician: Dr. Jacome/Reynaldo Ngo PA-C Attending Physician: Peter Jacome MD, FACS History of Present Illness PCP : Dr. Rosa History obtained from patient and records. Medical history significant for hypertension, PUD as per records, opioid addiction as per records, ongoing tobacco abuse. Last confinement June 2018 under Orthopedics spine service for cervical spine surgery. Postop course complicated by uncontrolled hypertension. Patient discharged on amlodipine which patient did not comply with. 1 week history of worsening achy abdominal discomfort. Nausea symptoms without emesis or black/bloody stools. No chest pain, no SOB. Patient consulted ER for worsening symptoms last night. CT abdomen pelvis showed perforated gastric ulcer. Patient subsequently admitted by General Surgery. Patient underwent emergent ex lap/washout and Bubba patch repair for perforated gastric ulcer. SBP 150-180s since admission. Belly still hurts as per patient. Patient denies headache, chest pain, shortness of breath. 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, final touch up painter Allergies Allergy/AdvReac Type Severity Reaction Status Date / Time Penicillins Allergy Unknown rash Verified 06/11/18 17:20 Home Medications Medication Instructions Recorded Confirmed Type buprenorphine 8 mg-naloxone 2 mg 0.5 tab sublingual BID 06/11/18 06/11/18 History sublingual tablet amlodipine 5 mg tablet 5 mg PO DAILY #30 tabs 06/14/18 Rx Patient History Medical History (Updated 11/11/23 @ 23:35 by Narciso Wood MD) Perforated ulcer History of narcotic addiction Hypertension Surgical History (Updated 11/12/23 @ 10:35 by Melissa Lizama RN) H/O exploratory laparotomy (11/11/23) Exploratory Laparotomy, abdominal washout and Bubba patch repair perforated posterior gastric ulceration biopsy of the ulcer multiple enlarged lymphadenopathy biopsy (Not Applicable) - Peter Jacome MD, FACS History of esophagogastroduodenoscopy (EGD) Family History Mother Diabetes Father Lung disease Social History Smoking Status: Current every day smoker Tobacco Type: Cigarettes Cigarettes Per Day: 1 PPD; Second Hand Exposure: No; Do You Dip or Chew Tobacco: No; Tobacco Cessation Education Requested by Patient: No Hx Alcohol Use: Yes Hx Substance Use: Yes (currently prescribed subutex) Substance Use Type Other:: opiates. Now on prescribed suboxone Preferred Language: Hungarian Communication Ability: Effective Stave Jointer Required: No Beliefs That Will Affect Care: None Current Living Situation: Family Current Living Situation Comment: lives with 2 adult daughters Other Information That Helps Us Care for You: No Feels Safe at Home: Yes Safety Concerns: Feels Safe At This Time Assistive Devices: Denture - Upper Review of Systems Review of Systems: As per HPI, all other systems reviewed and negative Physical Exam Physical Exam: GENERAL: Slightly uncomfortable, looks older than stated age, no respiratory distress SKIN: Normal color, warm HEENT: [place] palpebral conjunctivae, no ptosis, dry buccal mucosa, NGT in place NECK : Supple, no tenderness CHEST : Decreased breath sounds, no tenderness HEART : RRR, no obvious murmurs ABDOMEN: Some distention, dressing in place EXTREMITIES : No LE swelling/tenderness, no other conspicuous deformities noted NEUROLOGIC : Coherent, no facial asymmetry, no other gross focality Results & Data Results & Data Vital Signs (Past 12 Hours) Vital Signs Temp Pulse Pulse Resp BP BP BP 11/12/23 05:10 36.7 C 78 16 169/89 H 11/12/23 04:18 36.4 C L 74 18 156/87 H 11/12/23 03:47 36.3 C L 76 18 168/90 H 11/12/23 03:15 36.4 C L 74 18 176/96 H 156/87 H 11/12/23 03:15 36.4 C L 78 20 185/93 H 11/12/23 02:33 36.6 C 81 17 176/96 H 11/12/23 02:23 36.4 C L 81 18 178/98 H 11/12/23 02:13 36.4 C L 83 18 174/95 H 11/12/23 02:03 36.4 C L 82 18 171/96 H 11/12/23 01:53 36.5 C 85 18 174/96 H 11/12/23 01:43 36.5 C 83 20 182/101 H 11/12/23 01:33 36.5 C 88 22 186/100 H 11/12/23 01:23 36.5 C 87 22 188/95 H 11/11/23 23:27 36.7 C 11/11/23 23:15 77 18 137/81 11/11/23 23:00 131/83 11/11/23 22:36 83 18 11/11/23 22:30 142/92 H 11/11/23 22:27 85 16 11/11/23 22:24 77 20 11/11/23 22:00 146/89 H 11/11/23 21:57 77 18 11/11/23 21:45 77 17 150/93 H 11/11/23 20:58 77 11/11/23 19:39 80 18 134/86 11/11/23 19:00 86 21 141/84 H Pulse Ox O2 Del Method O2 Flow Rate 11/12/23 05:10 96 Room Air 11/12/23 04:18 96 Room Air 11/12/23 03:47 93 Room Air 11/12/23 03:15 96 11/12/23 03:15 94 Room Air 11/12/23 02:33 92 Room Air 11/12/23 02:23 91 Room Air 11/12/23 02:13 91 Room Air 11/12/23 02:03 92 Room Air 11/12/23 01:53 92 Room Air 11/12/23 01:43 99 Room Air 11/12/23 01:33 98 Room Air 11/12/23 01:23 98 Oxymask 10 11/11/23 23:27 11/11/23 23:15 93 Room Air 11/11/23 23:00 11/11/23 22:36 95 11/11/23 22:30 11/11/23 22:27 96 11/11/23 22:24 93 11/11/23 22:00 11/11/23 21:57 95 11/11/23 21:45 96 11/11/23 20:58 11/11/23 19:39 96 11/11/23 19:00 96 Laboratory Results Laboratory Results WBC 7.82 K/ul (4.8-10.8) 11/12/23 05:56 RBC 4.68 M/uL (4.70-6.10) L 11/12/23 05:56 Hgb 13.0 g/dl (14.0-18.0) L D 11/12/23 05:56 Hct 39.7 % (42.0-52.0) L 11/12/23 05:56 MCV 84.8 fL (80.0-100.0) 11/12/23 05:56 MCH 27.8 pg (25.0-34.0) 11/12/23 05:56 MCHC 32.7 g/dL (32.0-36.0) 11/12/23 05:56 RDW Std Deviation 40.6 fL (36.4-46.3) 11/12/23 05:56 RDW Coeff of Rabia 13.1 % (11.5-14.5) 11/12/23 05:56 Plt Count 218 K/uL (130-400) 11/12/23 05:56 MPV 11.2 fL (9.4-12.4) 11/12/23 05:56 Immature Gran % (Auto) 0.2 % 11/11/23 16:46 Neut % (Auto) 87.1 % 11/11/23 16:46 Lymph % (Auto) 6.7 % 11/11/23 16:46 [place] % (Auto) 5.8 % 11/11/23 16:46 Eos % (Auto) 0.0 % 11/11/23 16:46 Baso % (Auto) 0.2 % 11/11/23 16:46 Neut # (Auto) 8.78 K/uL (1.40-6.50) H 11/11/23 16:46 Lymph # (Auto) 0.67 K/uL (1.20-3.40) L 11/11/23 16:46 [place] # (Auto) 0.58 K/uL (0.11-0.59) 11/11/23 16:46 Eos # (Auto) 0.00 K/uL (0.00-0.50) 11/11/23 16:46 Baso # (Auto) 0.02 K/uL (0.00-0.20) 11/11/23 16:46 Immature Gran # (Auto) 0.02 K/uL (0.01-0.20) 11/11/23 16:46 PT 10.9 Seconds (9.0-12.0) 11/11/23 22:43 INR 1.0 (0.9-1.1) 11/11/23 22:43 APTT 30 Seconds (21-31) 11/11/23 22:43 PTT Ratio 1.1 11/11/23 22:43 Sodium 135 mmol/L (136-145) L 11/11/23 16:46 Potassium 4.2 mmol/L (3.5-5.1) 11/11/23 16:46 Chloride 97 mmol/L (98-107) L 11/11/23 16:46 Carbon Dioxide 29 mmol/L (21-32) 11/11/23 16:46 Anion Gap 9 (3-11) 11/11/23 16:46 BUN 31 mg/dl (6-23) H 11/11/23 16:46 Creatinine 1.05 mg/dl (0.6-1.4) 11/11/23 16:46 Est Cr Clr Drug Dosing 67.2 ml/min 11/11/23 16:46 Est GFR ( Amer) 93.5 ml/min 11/11/23 16:46 Est GFR (Non-Af Amer) 80.7 ml/min 11/11/23 16:46 BUN/Creatinine Ratio 29.5 (10-20) H 11/11/23 16:46 Glucose 125 mg/dl (70-99(Fasting)) H 11/11/23 16:46 Calcium 9.9 mg/dl (8.6-10.3) 11/11/23 16:46 Total Bilirubin 0.5 mg/dl (0.2-1.0) 11/11/23 16:46 Direct Bilirubin 0.1 mg/dl (0-0.2) 11/11/23 16:46 AST 8 U/L (13-39) L 11/11/23 16:46 ALT 6 U/L (7-52) L 11/11/23 16:46 Alkaline Phosphatase 73 U/L (34-104) 11/11/23 16:46 Total Protein 7.8 gm/dl (6.0-8.3) 11/11/23 16:46 Albumin 3.7 gm/dl (3.4-5.0) 11/11/23 16:46 Lipase 6 U/L (11-82) L 11/11/23 16:46 Urine Color Yellow 11/11/23 16:46 Urine Appearance Clear (Clear) 11/11/23 16:46 Urine pH 5.5 (4.5-7.5) 11/11/23 16:46 Ur Specific [place] 1.021 (1.000-1.030) 11/11/23 16:46 Urine Protein 1+ (Negative) H 11/11/23 16:46 Urine Glucose (UA) Negative (Negative) 11/11/23 16:46 Urine Ketones Negative (Negative) 11/11/23 16:46 Urine Blood Negative (Negative) 11/11/23 16:46 Urine Nitrite Negative (Negative) 11/11/23 16:46 Urine Bilirubin Negative (Negative) 11/11/23 16:46 Urine Urobilinogen Negative (Negative) 11/11/23 16:46 Ur Leukocyte Esterase Negative (Negative) 11/11/23 16:46 Urine WBC (Auto) 0-5 /hpf (0-5) 11/11/23 16:46 Urine RBC (Auto) 0-2 /hpf (0-2) 11/11/23 16:46 U Hyaline Cast (Auto) 6-10 /lpf (0-2) H 11/11/23 16:46 U Epithel Cells (Auto) 3-5 /hpf (0-2) H 11/11/23 16:46 Urine Bacteria (Auto) None Seen (None Seen) 11/11/23 16:46 Impressions Abdomen/Pelvis CT 11/11/23 16:59 CR Exam(s): CT ABDOMEN + PELVIS With Contrast Oral - High Density Amt: gastrograffin, IV Amt: 94ml optiray 320 EXAM: CT Abdomen and Pelvis With Intravenous Contrast CLINICAL HISTORY: Reason for exam: abd pain. TECHNIQUE: Axial computed tomography images of the abdomen and pelvis with intravenous contrast. CTDI is 9.97 mGy and DLP is 506.64 mGy-cm. Automated exposure control was utilized for the study. A dose lowering technique was utilized adhering to the principles of ALARA. CONTRAST: Patient received gastrograffin of Oral - High Density and 94ml optiray 320 of IV contrast COMPARISON: No relevant prior studies available. FINDINGS: ABDOMEN: Liver: Unremarkable. Gallbladder and bile ducts: Unremarkable. Pancreas: Unremarkable. Spleen: Unremarkable. Adrenals: Unremarkable. Kidneys and ureters: Unremarkable. No obstructing stones. No hydronephrosis. Stomach and bowel: : Perforated gastric ulcer along the undersurface of the gastric antrum. Large amount of extraluminal contrast, fluid, and free air throughout the left hemiabdomen. Full size of this collection difficult to measure, approximately 14.5 x 6.5 x 5.5 cm. Severe inflammation of the small bowel particularly within the left hemiabdomen adjacent to the fluid collection. PELVIS: Appendix: No findings to suggest acute appendicitis. Bladder: Unremarkable. Reproductive: Unremarkable as visualized. ABDOMEN and PELVIS: Intraperitoneal space: scattered free fluid and free air throughout the abdomen and pelvis. Bones/joints: No acute fracture. Soft tissues: Unremarkable. Vasculature: Aortobiiliac atherosclerotic calcifications. Lymph nodes: Unremarkable. IMPRESSION: 1. Perforated gastric ulcer along the undersurface of the gastric antrum. Large amount of extraluminal contrast, fluid, and free air throughout the left hemiabdomen. Full size of this collection difficult to measure, approximately 14.5 x 6.5 x 5.5 cm. 2. Severe inflammation of the small bowel particularly within the left hemiabdomen adjacent to the fluid collection. Communications: Call Doctor Pneumoperitoneum, new or unexpected Electronically signed by: Lebron Guevara MD 11/11/23 22:28 PM Chest X-Ray 11/11/23 17:00 XR chest 1V portable HISTORY: 53 years-old Male abd pain acute chest and abdominal pain COMPARISON: 06/11/2018 TECHNIQUE: AP view of the chest FINDINGS: Cardiomediastinal and hilar silhouettes are within normal limits. No pneumothorax or pleural effusion. Cervical spinal fusion hardware. Bones appear intact. Chronic mid left clavicular fracture deformity. IMPRESSION: No acute process. ACT 112: Negative or not required by law. The above report was generated using voice recognition software. It may contain grammatical, syntax or spelling errors. Electronically signed by: Lazaro Huynh M.D. 11/11/2023 5:08 PM Diagnostic Findings EKG as per my interpretation :Rate 75, NSR, normal axis, incomplete RBBB, no ischemia
[2023-11-12 06:47] LABS: BUN Creatinine Ratio 28.8 (10-20); Calcium 8.5 mg/dl (8.6-10.3); Creatinine Clr Calc Pharmacy 103.1 ml/min; Est GFR (African American) 122.7 ml/min; Est GFR (Non-African American) 105.9 ml/min; Magnesium 1.6 mg/dl (1.7-2.4); Potassium 4.2 mmol/L (3.5-5.1)
[2023-11-12 06:55] LABS: Basophils # (auto) 0.02 K/uL (0.00-0.20); Basophils % (auto) 0.3 %; Echinocytes 2+; Immature Granulocytes # (auto) 0.02 K/uL (0.01-0.20); Immature Granulocytes % (auto) 0.3 %; Lymphocytes # (auto) 0.32 K/uL (1.20-3.40); Lymphocytes % (auto) 4.1 %; Monocytes # (auto) 0.38 K/uL (0.11-0.59); Monocytes % (auto) 4.9 %; Neutrophils # (auto) 7.08 K/uL (1.40-6.50); Neutrophils % (auto) 90.4 %; Polychromasia 1+
[2023-11-12] MEDS: hydrALAZINE HCL 20 MG/ML VIAL IV ONE (07:31)
[2023-11-12] MEDS: PANTOprazole 40 MG in SYRINGE 0 ML IV SCH (07:33)
[2023-11-12] MEDS: HYDROmorphone INJ 0.5 MG/0.5 ML SYR IV PRN ×2 (07:56→18:46)
[2023-11-12] MEDS: MAGNESIUM SULFATE / D5W 1 GM/100 ML BAG IV ONE (08:01)
--- NOTE | 2023-11-12 09:02 | Surgery Progress Note ---
Date of Service November 12, 2023 Assessment & Plan (1) Perforated chronic gastric ulcer: Plan: s/p exlap, repair of perforated gastric ulcer, lymph node biopsy WBC 7.8, Hbg 13, Cr 0.7. Vitals stable Given peritonitis intraop, want to increase IVF to 150 Continue NPO with NGT Pt to be transferred to PCU for possible BP control as well OOB/Pulm toilet, pain control Pt seen/examined with dr. moore Admission and Anticipated Discharge Date Admission Date: November 12, 2023 Subjective Pt reports feeling sore. Is voiding. No other major complaints voiced. Physical Exam Physical Exam: awake, alert, no distress Respiratory: normal respiratory effort Gastrointestinal (Abdomen): Inspection/Auscultation: + abdominal surgical incision (surgical dressings in place) Percussion/Palpation: + abdomen tender (expected ruth incisional discomfort ) and abdomen soft NICK serosang, 115cc documented. NGT in place with scant output Results & Data Vital Signs (Past 12 Hours) Vital Signs Temp Pulse Pulse Resp BP BP BP 11/12/23 08:23 76 20 144/86 H 11/12/23 08:12 97.9 F 73 20 159/91 H 11/12/23 08:00 11/12/23 07:58 98.4 F 74 20 155/88 H 11/12/23 05:10 98.1 F 78 16 169/89 H 11/12/23 04:18 97.5 F L 74 18 156/87 H 11/12/23 03:47 97.3 F L 76 18 168/90 H 11/12/23 03:15 97.5 F L 74 18 176/96 H 156/87 H 11/12/23 03:15 97.5 F L 78 20 185/93 H 11/12/23 02:33 97.9 F 81 17 176/96 H 11/12/23 02:23 97.5 F L 81 18 178/98 H 11/12/23 02:13 97.5 F L 83 18 174/95 H 11/12/23 02:03 97.5 F L 82 18 171/96 H 11/12/23 01:53 97.7 F 85 18 174/96 H 11/12/23 01:43 97.7 F 83 20 182/101 H 11/12/23 01:33 97.7 F 88 22 186/100 H 11/12/23 01:23 97.7 F 87 22 188/95 H 11/11/23 23:27 98.1 F 11/11/23 23:15 77 18 137/81 11/11/23 23:00 131/83 11/11/23 22:36 83 18 11/11/23 22:30 142/92 H 11/11/23 22:27 85 16 11/11/23 22:24 77 20 11/11/23 22:00 146/89 H 11/11/23 21:57 77 18 11/11/23 21:45 77 17 150/93 H Pulse Ox O2 Del Method O2 Flow Rate 11/12/23 08:23 95 Room Air 11/12/23 08:12 94 Room Air 11/12/23 08:00 Room Air 11/12/23 07:58 96 Room Air 11/12/23 05:10 96 Room Air 11/12/23 04:18 96 Room Air 11/12/23 03:47 93 Room Air 11/12/23 03:15 96 11/12/23 03:15 94 Room Air 11/12/23 02:33 92 Room Air 11/12/23 02:23 91 Room Air 11/12/23 02:13 91 Room Air 11/12/23 02:03 92 Room Air 11/12/23 01:53 92 Room Air 11/12/23 01:43 99 Room Air 11/12/23 01:33 98 Room Air 11/12/23 01:23 98 Oxymask 10 11/11/23 23:27 11/11/23 23:15 93 Room Air 11/11/23 23:00 11/11/23 22:36 95 11/11/23 22:30 11/11/23 22:27 96 11/11/23 22:24 93 11/11/23 22:00 11/11/23 21:57 95 11/11/23 21:45 96 PG Care Time/CCT Total # of Minutes Spent Total Time Spent with Patient: Total time spent is greater than 50% in coordination of care (as documented) at patient's floor/unit and/or counseling patient: Coding Level of Care Code 88150 Post Operative Follow-Up Diagnoses Perforated chronic gastric ulcer K25.5
[2023-11-12 09:26] LABS: Estimated Average Glucose 137 mg/dl; Hemoglobin A1C 6.4 % (4.5-5.6)
[2023-11-12] MEDS ORDERED: hydrALAZINE HCL 20 MG/ML VIAL IV PRN (09:35)
[2023-11-12] MEDS: ACETAMINOPHEN 1,000 MG/100 ML VIAL IV SCH (09:47)
[2023-11-12] MEDS: LACTATED RINGER'S 1,000 ML IV SCH (09:47)
[2023-11-12 10:49] LABS: Appearance Urine Clear (Clear); Bacteria Urine Automated None Seen (None Seen); Bilirubin Urine Negative (Negative); Blood Urine Negative (Negative); Cast Urine Automated 0-2 /lpf (0-2); Color Urine Yellow; Epithelial Cell Urine Auto 0-2 /hpf (0-2); Glucose Urine UA Negative (Negative); Ketones Urine Negative (Negative); Leukocyte Esterase Urine Negative (Negative); Nitrite Urine Negative (Negative); Protein Urine 1+ (Negative); RBC Urine Automated 0-2 /hpf (0-2); Specific Gravity Urine 1.036 (1.000-1.030); Urobilinogen Urine Negative (Negative); WBC Urine Automated 0-5 /hpf (0-5); pH Urine 5.5 (4.5-7.5)
[2023-11-12] MEDS: NICOTINE 21 MG/24 HR TDSY TD SCH (13:30)
--- NOTE | 2023-11-12 15:50 | Communication Note ---
Date of Service: November 12, 2023 Patient is seen and examined at bedside. States having some abdominal pain at surgical site. Denies any nausea, vomiting. NG tube in place. Denies any c hest pain, dyspnea. Blood pressure elevated likely due to pain. Blood pressure is better. I personally reviewed blood work and imaging studies and examined the patient at bedside. Will manage hypertension with IV hydralazine as needed. Although penicillin listed as allergy, patient tolerated IV Zosyn multiple doses with no issues. If patient develops any signs of allergic reaction, will switch IV antibiotics. Prediabetes noted. HbA1c 6.4. Monitor and replete electrolytes as needed. DVT prophylaxis, activity, diet, wound care as per primary team. Sodium level fairly stable. Continue PPI. IV fluids changed to Ringer lactate. monitor for postop anemia. On nicotine patch. Counseled to quit smoking. Avoid NSAIDs. Resume home antihypertensives as able.
[2023-11-12] MEDS: hydrALAZINE HCL 20 MG/ML VIAL IV PRN (20:42)
[2023-11-12] MEDS: HYDROmorphone INJ 0.5 MG/0.5 ML SYR IV STA (22:33)
[2023-11-12] MEDS: LORazepam 0.25 MG in SYRINGE 0.125 ML IV PRN (22:45)
[2023-11-13] MEDS: HYDROmorphone INJ 0.5 MG/0.5 ML SYR IV PRN (02:26)
--- NOTE | 2023-11-13 06:08 | Electrocardiogram Report ---
Test Reason : Blood Pressure : / mmHG Vent. Rate : 075 BPM Atrial Rate : 075 BPM P-R Int : 140 ms QRS Dur : 110 ms QT Int : 374 ms P-R-T Axes : 062 055 051 degrees QTc Int : 417 ms Normal sinus rhythm Incomplete right bundle branch block When compared with ECG of 11-JUN-2018 16:02, No significant change was found Confirmed by Yuniel Buckley ([id number]) on 11/13/2023 6:08:45 AM Referred By: REFERRED SELF Confirmed By:Yuniel Buckley
[2023-11-13 06:33] LABS: Hematocrit (blood only) 36.2 % (42.0-52.0); Hemoglobin 12.1 g/dl (14.0-18.0); Mean Corpuscular Hemoglobin 27.6 pg (25.0-34.0); Mean Corpuscular Hgb Conc 33.4 g/dL (32.0-36.0); Mean Corpuscular Volume 82.6 fL (80.0-100.0); Mean Platelet Volume 11.2 fL (9.4-12.4); Platelet Count 227 K/uL (130-400); RDW Coefficient of Variation 12.5 % (11.5-14.5); RDW Standard Deviation 38.2 fL (36.4-46.3); Red Blood Count 4.38 M/uL (4.70-6.10); White Blood Count 6.75 K/ul (4.8-10.8)
[2023-11-13 06:57] LABS: Calcium 8.6 mg/dl (8.6-10.3); Creatinine Clr Calc Pharmacy 123.3 ml/min; Est GFR (Non-African American) 114.8 ml/min; Magnesium 1.8 mg/dl (1.7-2.4); Potassium 3.8 mmol/L (3.5-5.1)
--- NOTE | 2023-11-13 10:02 | Surgery Progress Note ---
Date of Service November 13, 2023 Assessment & Plan (1) Perforated chronic gastric ulcer: Plan: #2POD status post abdominal washout and repair of perforated gastric ulcer Overall patient doing well controlled last with a heart rate of 75 Urine output 400 cc last 8 hours Plan to leave the NG tube in Out of bed s/p exlap, repair of perforated gastric ulcer, lymph node biopsy WBC 7.8, Hbg 13, Cr 0.7. Vitals stable Given peritonitis intraop, want to increase IVF to 150 Continue NPO with NGT Pt to be transferred to PCU for possible BP control as well OOB/Pulm toilet, pain control Pt seen/examined with dr. moore Admission and Anticipated Discharge Date Admission Date: November 12, 2023 Subjective Resting comfortably no new complaints Had been moved to monitored bed to monitor the hypertension Physical Exam Physical Exam: Alert coherent without any issues NG tube in place with dark bilious drainage approximately 400 cc in the last 7 hours Oral mucosa moist No jugular vein distention The abdomen benign no localized tenderness Only scant amount of serous sanguinous drainage for the Rufino drain Results & Data Vital Signs (Past 12 Hours) Vital Signs Temp Pulse Pulse Resp BP Pulse Ox O2 Del Method 11/13/23 07:37 Room Air 11/13/23 07:31 36.7 C 75 18 166/85 H 94 Room Air 11/13/23 07:17 78 11/13/23 03:20 36.6 C 80 16 159/88 H 93 Room Air 11/13/23 00:11 36.6 C 72 18 166/86 H 97 Room Air 11/12/23 22:51 88 Laboratory Results Lab noted
--- NOTE | 2023-11-13 15:59 | Hospitalist Progress Note ---
Date of Service November 13, 2023 Assessment & Plan (1) Perforated chronic gastric ulcer: Plan: Final Assessment and Recommendations as follows : Perforated gastric ulcer status post surgery History of PUD Management management as per surgery Continue to have NG suction Remains n.p.o. and will continue IV fluid Clinically a little better Hypertensive urgency secondary to discomfort, IVF, home medication noncompliance Blood pressure remains elevated and noted to be at 191/105 this afternoon Continue IV Hydralazine as needed Will add Lopressor IV 5 mg every 6 hours Will monitor blood pressure and if needed we will add Nitropaste Hyperglycemia rule out DM Hemoglobin A1c 6.4 Will continue with current management opioid addiction as per records ongoing tobacco abuse Nicotine patch DVT prophylaxis. SCDs as per postop orders Text document was generated using [employer] voice recognition software. It may contain grammatical or spelling errors. Kindly contact undersigned for clarification of any documentation item in ques tion. Admission and Anticipated Discharge Date Admission Date: November 12, 2023 Subjective 11/13/2023 The patient was seen and examined in medical telemetry unit He has been stable and complains to have abdominal discomfort Denies any significant pain and/or distress Blood pressure is noted to be high Review of Systems Review of Systems: All systems reviewed and are unremarkable except as noted below Physical Exam Physical Exam: Lying in bed with acute distress due to abdominal discomfort Constitutional: + ill appearing and + thin Eyes: PERRL, conjunctivae normal, anicteric sclerae ENMT: external ear and nose normal, oropharynx normal Neck: trachea midline, no thyromegaly Respiratory: no respiratory distress Auscultation: lungs clear to auscultation bilaterally Cardiovascular: Rate/Rhythm: regular rate and regular rhythm; not tachycardic Heart Sounds: normal S1 and normal S2; no murmur Extremities: no edema Gastrointestinal (Abdomen): Inspection/Auscultation: + abdomen distended; + abnormal bowel sounds Percussion/Palpation: + abdomen tender and abdomen soft Musculoskeletal: No acute arthritis involving any of the joint Neurologic: normal touch/pain/proprioception and moves all extremities; no focal motor deficits Lymphatic: no cervical or axillary lymphadenopathy Results & Data Results & Data Vital Signs (Past 12 Hours) Vital Signs Temp Pulse Pulse Resp BP Pulse Ox O2 Del Method 11/13/23 14:44 36.7 C 78 18 191/105 H 96 Room Air 11/13/23 14:14 71 11/13/23 11:03 36.8 C 73 20 167/88 H 96 Room Air 11/13/23 07:37 Room Air 11/13/23 07:31 36.7 C 75 18 166/85 H 94 Room Air 11/13/23 07:17 78 Laboratory Results Short CBC 11/13/23 Range/Units 05:56 WBC 6.75 (4.8-10.8) K/ul Hgb 12.1 L (14.0-18.0) g/dl Hct 36.2 L (42.0-52.0) % Plt Count 227 (130-400) K/uL BMP 11/13/23 05:56 Sodium 136 Potassium 3.8 Chloride 101 Carbon Dioxide 28 BUN 18 Creatinine 0.60 Glucose 94 Calcium 8.6 Medications Administered Current Inpatient Medications Hydralazine HCl (Hydralazine Hcl 20 Mg/Ml Vial) 5 mg IV Q6H PRN PRN Reason: Hypertension SBP>170or DBP>100 Stop: 12/12/23 09:34 Last Admin: 11/13/23 14:49 Dose: 5 mg Hydromorphone HCl (Hydromorphone Inj 0.5 Mg/0.5 Ml Syr) 0.5 mg IV Q3H PRN PRN Reason: Severe Pain (Scale 7, 8, 9,10) Stop: 11/26/23 09:07 Last Admin: 11/13/23 15:34 Dose: 0.5 mg Piperacillin Sod/Tazobactam (Sod 4.5 gm/ Dextrose) 100 mls @ 25 mls/hr IV Q8H [facility]; Protocol Stop: 11/22/23 03:59 Last Infusion: 11/13/23 15:50 Dose: Infused Pantoprazole Sodium 40 mg/ (Syringe) 10 mls @ 5 mls/min IV BID [facility] Stop: 12/12/23 08:59 Last Admin: 11/13/23 09:25 Dose: 5 mls/min Acetaminophen (Ofirmev) 1,000 mg in 100 mls @ 400 mls/hr IV Q8H [facility] Stop: 11/15/23 09:59 Last Infusion: 11/13/23 09:59 Dose: Infused Lactated Ringer's (Lr) 1,000 mls @ 75 mls/hr IV .[id number] [facility] Stop: 12/12/23 09:34 Last Admin: 11/13/23 11:53 Dose: 75 mls/hr Lorazepam 0.25 mg/ Syringe 0.25 mls @ 2 mls/min IV Q8H PRN PRN Reason: Anxiety/Agitation Stop: 12/12/23 22:10 Last Admin: 11/13/23 02:26 Dose: 2 mls/min Lorazepam 0.25 mg/ Syringe 0.25 mls @ 2 mls/min IV HS PRN PRN Reason: insomnia Stop: 12/12/23 22:11 Miscellaneous (Remove Nicoderm Patch) 1 each N/A DAILY@0859 [facility] Stop: 12/13/23 08:58 Last Admin: 11/13/23 09:25 Dose: 1 each Nicotine (Nicotine 21 Mg/24 Hr Tdsy) 1 patch TD QAM [facility] Stop: 12/12/23 07:29 Last Admin: 11/13/23 09:25 Dose: 1 patch Ondansetron HCl (Ondansetron Inj 2 Mg/Ml 2 Ml Vial) 4 mg IV Q6H PRN PRN Reason: Nausea And Vomiting Stop: 12/12/23 03:27
[2023-11-13] MEDS: METOPROLOL TARTRATE 1 MG/ML VIAL IV SCH (17:33)
[2023-11-13] MEDS: LORazepam 0.25 MG in SYRINGE 0.125 ML IV PRN (21:16)
[2023-11-14] MEDS: HYDROmorphone INJ 0.5 MG/0.5 ML SYR IV STA (01:25)
[2023-11-14] MEDS: hydrALAZINE HCL 20 MG/ML VIAL IV ONE (01:25)
[2023-11-14] MEDS: cloNIDine HCL 0.1 MG/24 HR TRANSDERM SYS TD SCH (01:49)
[2023-11-14 06:08] LABS: Basophils # (auto) 0.02 K/uL (0.00-0.20); Basophils % (auto) 0.2 %; Eosinophils % (auto) 1.1 %; Hematocrit (blood only) 39.3 % (42.0-52.0); Hemoglobin 13.3 g/dl (14.0-18.0); Immature Granulocytes # (auto) 0.03 K/uL (0.01-0.20); Immature Granulocytes % (auto) 0.3 %; Lymphocytes # (auto) 0.79 K/uL (1.20-3.40); Lymphocytes % (auto) 8.8 %; Mean Corpuscular Hemoglobin 27.5 pg (25.0-34.0); Mean Corpuscular Hgb Conc 33.8 g/dL (32.0-36.0); Mean Corpuscular Volume 81.4 fL (80.0-100.0); Mean Platelet Volume 10.8 fL (9.4-12.4); Monocytes # (auto) 0.91 K/uL (0.11-0.59); Monocytes % (auto) 10.1 %; Neutrophils # (auto) 7.14 K/uL (1.40-6.50); Neutrophils % (auto) 79.5 %; Platelet Count 245 K/uL (130-400); RDW Coefficient of Variation 12.9 % (11.5-14.5); RDW Standard Deviation 38.3 fL (36.4-46.3); Red Blood Count 4.83 M/uL (4.70-6.10); White Blood Count 8.99 K/ul (4.8-10.8)
[2023-11-14 06:25] LABS: BUN Creatinine Ratio 25.5 (10-20); Calcium 8.3 mg/dl (8.6-10.3); Creatinine Clr Calc Pharmacy 133.4 ml/min; Est GFR (African American) 137.9 ml/min; Magnesium 1.6 mg/dl (1.7-2.4)
[2023-11-14] MEDS: CHECK CLONIDINE PATCH PLACEMENT SCH (07:43)
--- NOTE | 2023-11-14 08:26 | Surgery Progress Note ---
Date of Service November 14, 2023 Assessment & Plan (1) Perforated chronic gastric ulcer: Plan: #3 POD status post abdominal washout and repair of perforated gastric ulcer Out of bed to chair today Continue NPO with NGT daily dressing changes , gauze , abd , medipore tape Increased IV fluids to 100ml/hr possible Gastrografin study tomorrow seen/examined with dr. moore Admission and Anticipated Discharge Date Admission Date: November 12, 2023 Subjective pt resting in bed Review of Systems Constitutional: no fever and no chills Respiratory: no dyspnea Gastrointestinal: + abdominal pain; no nausea and no vomit ing Physical Exam Constitutional: cooperative and comfortable; no acute distress Respiratory: normal respiratory effort and able to speak in complete sentences; no respiratory distress Cardiovascular: Rate/Rhythm: regular rate Gastrointestinal (Abdomen): Inspection/Auscultation: + abdominal surgical incision (CDI); abdomen not distended Percussion/Palpation: abdomen soft; no guarding Results & Data Vital Signs (Past 12 Hours) Vital Signs Temp Pulse Pulse Resp BP BP Pulse Ox 11/14/23 05:54 89 166/91 H 11/14/23 05:30 96 H 176/90 H 11/14/23 03:46 97.7 F 94 H 16 166/84 H 95 11/14/23 01:46 86 171/90 H 11/14/23 01:22 88 179/93 H 11/14/23 00:48 93 H 190/89 H 11/13/23 23:44 78 191/93 H 11/13/23 23:15 99.1 F 81 16 193/101 H 95 11/13/23 21:56 87 O2 Del Method 11/14/23 05:54 11/14/23 05:30 11/14/23 03:46 Room Air 11/14/23 01:46 11/14/23 01:22 11/14/23 00:48 11/13/23 23:44 11/13/23 23:15 Room Air 11/13/23 21:56 PG Care Time/CCT Total # of Minutes Spent Total Time Spent with Patient: Total time spent is greater than 50% in coordination of care (as documented) at patient's floor/unit and/or counseling patient: Coding Level of Care Code 09319 Post Operative Follow-Up Diagnoses Perforated chronic gastric ulcer K25.5
[2023-11-14] MEDS: POTASSIUM CHLORIDE / WTR 10 MEQ/100 ML PLCT IV SCH (08:44)
[2023-11-14] MEDS: HEPARIN SOD 5,000 UNIT/0.5 ML VIAL SQ SCH (10:07)
[2023-11-14] MEDS: MAGNESIUM SULFATE / D5W 1 GM/100 ML BAG IV ONE (11:54)
--- NOTE | 2023-11-14 14:11 | Hospitalist Progress Note ---
Date of Service November 14, 2023 Assessment & Plan (1) Perforated chronic gastric ulcer: Plan: Final Assessment and Recommendations as follows : Perforated gastric ulcer status post surgery History of PUD Management management as per surgery Continue to have NG suction Remains n.p.o. and will continue IV fluid Clinically a little better Will continue with the NG tube suction as of today Electrolytes have been replaced Has been passing gas Likely to DC NG tube tomorrow Hypertensive urgency secondary to discomfort, IVF, home medication noncompliance Blood pressure remains elevated and noted to be at 191/105 this afternoon Continue IV Hydralazine as needed Will add Lopressor IV 5 mg every 6 hours Will monitor blood pressure and if needed we will add Nitropaste Blood pressure remains elevated at 185/95 Clonidine patch has been applied since last night Will monitor Hyperglycemia rule out DM Hemoglobin A1c 6.4 Will continue with current management opioid addiction as per records ongoing tobacco abuse Nicotine patch DVT prophylaxis. SCDs as per postop orders Text document was generated using [employer] voice recognition software. It may contain grammatical or spelling errors. Kindly contact undersigned for clarification of any documentation item in question. Admission and Anticipated Discharge Date Admission Date: November 12, 2023 Subjective 11/13/2023 The patient was seen and examined in medical telemetry unit He has been stable and complains to have abdominal discomfort Denies any significant pain and/or distress Blood pressure is noted to be high 11/14/2023 The patient was seen and examined in medical telemetry unit He shows minimal improvement Still has abdominal bloating and nausea at times Has been moving gas Review of Systems Review of Systems: All systems reviewed and are unremarkable except as noted below Physical Exam Physical Exam: Lying in bed with acute distress due to abdominal discomfort Constitutional: + ill appearing and + thin Eyes: PERRL, conjunctivae normal, anicteric sclerae ENMT: external ear and nose normal, oropharynx normal Neck: trachea midline, no thyromegaly Respiratory: no respiratory distress Auscultation: lungs clear to auscultation bilaterally Cardiovascular: Rate/Rhythm: regular rate and regular rhythm; not tachycardic Heart Sounds: normal S1 and normal S2; no murmur Extremities: no edema Gastrointestinal (Abdomen): Inspection/Auscultation: + abdomen distended; + abnormal bowel sounds Percussion/Palpation: + abdomen tender and abdomen soft Neurologic: normal touch/pain/proprioception and moves all extremities; no focal motor deficits Lymphatic: no cervical or axillary lymphadenopathy Results & Data Results & Data Vital Signs (Past 12 Hours) Vital Signs Temp Pulse Pulse Resp BP BP BP 11/14/23 13:13 37.1 C 94 H 18 185/95 H 11/14/23 10:44 82 11/14/23 08:30 37.0 C 88 18 179/95 H 11/14/23 05:54 89 166/91 H 11/14/23 05:30 96 H 176/90 H 11/14/23 03:46 36.5 C 94 H 16 166/84 H Pulse Ox O2 Del Method 11/14/23 13:13 94 Room Air 11/14/23 10:44 11/14/23 08:30 95 Room Air 11/14/23 05:54 11/14/23 05:30 11/14/23 03:46 95 Room Air Laboratory Results Short CBC 11/14/23 Range/Units 05:33 WBC 8.99 (4.8-10.8) K/ul Hgb 13.3 L (14.0-18.0) g/dl Hct 39.3 L (42.0-52.0) % Plt Count 245 (130-400) K/uL BMP 11/14/23 05:33 Sodium 134 L Potassium 3.0 L D Chloride 97 L Carbon Dioxide 24 BUN 14 Creatinine 0.55 L Glucose 91 Calcium 8.3 L Medications Administered Current Inpatient Medications Clonidine HCl (Clonidine Hcl 0.1 Mg/24 Hr Transderm Sys) 1 patch TD Q7D [facility] Stop: 12/14/23 01:29 Last Admin: 11/14/23 01:49 Dose: 1 patch Heparin Sodium (Porcine) (Heparin Sod 5,000 Unit/0.5 Ml Vial) 5,000 units SQ Q12 [facility] Stop: 12/14/23 08:59 Last Admin: 11/14/23 10:07 Dose: 5,000 units Hydralazine HCl (Hydralazine Hcl 20 Mg/Ml Vial) 5 mg IV Q6H PRN PRN Reason: Hypertension SBP>170or DBP>100 Stop: 12/12/23 09:34 Last Admin: 11/14/23 07:38 Dose: 5 mg Hydromorphone HCl (Hydromorphone Inj 0.5 Mg/0.5 Ml Syr) 0.5 mg IV Q3H PRN PRN Reason: Severe Pain (Scale 7, 8, 9,10) Stop: 11/26/23 09:07 Last Admin: 11/14/23 12:57 Dose: 0.5 mg Piperacillin Sod/Tazobactam (Sod 4.5 gm/ Dextrose) 100 mls @ 25 mls/hr IV Q8H [facility]; Protocol Stop: 11/22/23 03:59 Last Admin: 11/14/23 12:59 Dose: 25 mls/hr Pantoprazole Sodium 40 mg/ (Syringe) 10 mls @ 5 mls/min IV BID [facility] Stop: 12/12/23 08:59 Last Admin: 11/14/23 07:39 Dose: 5 mls/min Acetaminophen (Ofirmev) 1,000 mg in 100 mls @ 400 mls/hr IV Q8H [facility] Stop: 11/15/23 09:59 Last Infusion: 11/14/23 12:19 Dose: Infused Lactated Ringer's (Lr) 1,000 mls @ 100 mls/hr IV .Q10H [facility] Stop: 12/12/23 09:34 Last Infusion: 11/14/23 10:04 Dose: 100 mls/hr Lorazepam 0.25 mg/ Syringe 0.25 mls @ 2 mls/min IV Q8H PRN PRN Reason: Anxiety/Agitation Stop: 12/12/23 22:10 Last Admin: 11/14/23 05:55 Dose: 2 mls/min Lorazepam 0.25 mg/ Syringe 0.25 mls @ 2 mls/min IV HS PRN PRN Reason: insomnia Stop: 12/12/23 22:11 Last Admin: 11/13/23 21:16 Dose: 2 mls/min Metoprolol Tartrate (Metoprolol Tartrate 1 Mg/Ml Vial) 5 mg IV Q6 [facility]; Protocol Stop: 12/13/23 17:59 Last Admin: 11/14/23 12:58 Dose: 5 mg Miscellaneous (Remove Nicoderm Patch) 1 each N/A DAILY@0859 [facility] Stop: 12/13/23 08:58 Last Admin: 11/14/23 07:39 Dose: 1 each Miscellaneous (Remove Clonidine Patch) 1 each N/A Q7D [facility] Stop: 09/06/24 01:28 Miscellaneous (Check Clonidine Patch Placement) 1 each N/A QS [facility] Stop: 12/14/23 07:59 Last Admin: 11/14/23 07:43 Dose: 1 each Nicotine (Nicotine 21 Mg/24 Hr Tdsy) 1 patch TD QAM [facility] Stop: 12/12/23 07:29 Last Admin: 11/14/23 07:42 Dose: 1 patch Ondansetron HCl (Ondansetron Inj 2 Mg/Ml 2 Ml Vial) 4 mg IV Q6H PRN PRN Reason: Nausea And Vomiting Stop: 12/12/23 03:27
[2023-11-14] MEDS ORDERED: Nursing to Pharmacy Communication SCH (21:00)
[2023-11-14] MEDS: NICOTINE 21 MG/24 HR TDSY TD SCH (22:35)
[2023-11-14] MEDS: ONDANSETRON INJ 2 MG/ML 2 ML VIAL IV PRN (23:31)
--- NOTE | 2023-11-15 07:43 | Surgery Progress Note ---
Date of Service November 15, 2023 Assessment & Plan (1) Perforated chronic gastric ulcer: Plan: #4 POD Pt s/p repair of perforated gastric ulcer and biopsy of lymph nodes labs pending. vitals stable, HTN Will obtain UGI study today to rule out leak, if negative will plan on removing NGT and starting a liquid diet Pathology for LNs with wide differential, will ask hospitalists to assist us with ordering appropriate workup for this PPI BID Keep NICK for now, Chris drain d/c'd this AM Encourage OOB pt seen/examined with dr. moore Admission and Anticipated Discharge Date Admission Date: November 12, 2023 Supervising Physician Co-Signing Physician Notes As per Toya Aggarwal physician sugar laboratory assistant Will plan for upper GI study to check for leak clinically is doing well moving his bowels serous drainage from Rufino drain near the perforation site Path report on the lymph node noted significant number of differentials alluded to by pathologist therefore we will ask the medical service to address those issues If the contrast study reveals that the repair is intact and no leak patient to start on liquids Will ask pad making machine operator to to see patient before discharge in anticipation of follow-up EGD in the future Subjective Patient feeling okay. Having some expected post op discomfort. passing flatus. Physical Exam Physical Exam: awake/alert, no distress Gastrointestinal (Abdomen): Inspection/Auscultation: + abdominal surgical incision (c/d/i, NICK drain serosang 100cc documented over last 12 hrs); abdomen not distended Percussion/Palpation: + abdomen tender (expected post op discomfort) and abdomen soft NGT in place Results & Data Vital Signs (Past 12 Hours) Vital Signs Temp Pulse Pulse Resp BP BP Pulse Ox 11/15/23 07:10 72 11/15/23 06:19 80 176/88 H 11/15/23 05:02 76 176/90 H 11/15/23 03:54 98.6 F 76 18 176/90 H 94 11/14/23 23:31 80 182/89 H 11/14/23 23:13 97.3 F L 80 18 182/89 H 95 11/14/23 22:01 74 O2 Del Method 11/15/23 07:10 11/15/23 06:19 11/15/23 05:02 11/15/23 03:54 Room Air 11/14/23 23:31 11/14/23 23:13 Room Air 11/14/23 22:01 PG Care Time/CCT Total # of Minutes Spent Total Time Spent with Patient: Total time spent is greater than 50% in coordination of care (as documented) at patient's floor/unit and/or counseling patient: Coding Level of Care Code 61705 Post Operative Follow-Up Diagnoses Perforated chronic gastric ulcer K25.5
[2023-11-15 08:19] LABS: Basophils # (auto) 0.05 K/uL (0.00-0.20); Basophils % (auto) 0.5 %; Eosinophils # (auto) 0.19 K/uL (0.00-0.50); Eosinophils % (auto) 2.1 %; Hematocrit (blood only) 41.4 % (42.0-52.0); Hemoglobin 13.6 g/dl (14.0-18.0); Immature Granulocytes # (auto) 0.05 K/uL (0.01-0.20); Immature Granulocytes % (auto) 0.5 %; Lymphocytes # (auto) 1.16 K/uL (1.20-3.40); Lymphocytes % (auto) 12.7 %; Mean Corpuscular Hemoglobin 27.3 pg (25.0-34.0); Mean Corpuscular Hgb Conc 32.9 g/dL (32.0-36.0); Mean Platelet Volume 10.6 fL (9.4-12.4); Monocytes % (auto) 12.1 %; Neutrophils # (auto) 6.55 K/uL (1.40-6.50); Neutrophils % (auto) 72.1 %; Platelet Count 258 K/uL (130-400); RDW Coefficient of Variation 13.1 % (11.5-14.5); RDW Standard Deviation 39.1 fL (36.4-46.3); Red Blood Count 4.99 M/uL (4.70-6.10)
[2023-11-15 08:39] LABS: BUN Creatinine Ratio 24.1 (10-20); Calcium 8.1 mg/dl (8.6-10.3); Creatinine Clr Calc Pharmacy 135.4 ml/min; Est GFR (African American) 138.9 ml/min; Est GFR (Non-African American) 119.9 ml/min; Phosphorus 3.3 mg/dl (2.5-4.9); Potassium 3.2 mmol/L (3.5-5.1)
[2023-11-15 11:01] LABS: HIV 4th Gen(HIV 1,2 AB+p24 Ag Negative (Negative)
[2023-11-15] MEDS: POTASSIUM CHLORIDE / WTR 10 MEQ/100 ML PLCT IV SCH (11:02)
[2023-11-15 11:08] LABS: Treponema pallidum RflxConfirm Negative (Negative)
--- NOTE | 2023-11-15 12:06 | Fluoroscopy Report ---
[place] upper GI series wo air CLINICAL HISTORY: 53 years-old Male with s/p repair of perf'd gastric ulcer, eval for leak. Status p ost gastric perforation with surgical repair TECHNIQUE: A standard air contrast upper GI series was performed following administration of 150 mL Optiray. Multiple spot fluoroscopic images were obtained and provided for review. COMPARISON STUDY: CT 11/11/2023 FLUOROSCOPY TIME: 24 seconds. FLUOROSCOPY IMAGES: 9 Ka,r: 5.98 FINDINGS: The contrast was injected through the patient's enteric tube. No aspiration was definitively visuali zed. The esophagus distended normally with the enteric contrast. No strictures, mucosal ulcerations , or intraluminal mass lesions were identified involving the esophagus. There was no gastroesophagea l reflux. Barium was seen to flow freely through the gastroesophageal junction. No active reflux id entified. Postoperative changes of the stomach without contrast extravasation to suggest persistent l eak. The duodenal bulb and sweep appear unremarkable. Midline skin bal. Surgical drainage catheter pro jects over the left upper quadrant. IMPRESSION: No contrast extravasation identified. ACT 112: Negative or not required by law. The above report was generated using voice recognition software. It may contain grammatical, syntax o r spelling errors. Electronically signed by: Lazaro Huynh M.D. 11/15/2023 12:05 PM
--- NOTE | 2023-11-15 16:17 | Hospitalist Progress Note ---
Date of Service November 15, 2023 Assessment & Plan (1) Perforated chronic gastric ulcer: Plan: Final Assessment and Recommendations as follows : Perforated gastric ulcer status post surgery History of PUD Management management as per surgery Continue to have NG suction Remains n.p.o. 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 Advised to have other pathologist to be excluded Ask for ESR, test for syphilis and also HIV and peripheral blood smear as advised by the pathologist Discussed with the patient in detail He will need to have an appointment with oncologist/soil sampler as an outpatient Hypertensive urgency secondary to discomfort, IVF, home medication noncompliance Blood pressure remains elevated and noted to be at 191/105 this afternoon Continue IV Hydralazine as needed Will add Lopressor IV 5 mg every 6 hours Will monitor blood pressure and if needed we will add Nitropaste Blood pressure remains elevated at 185/95 Clonidine patch has been applied since last night Will monitor Hyperglycemia rule out DM Hemoglobin A1c 6.4 Will continue with current management opioid addiction as per records ongoing tobacco abuse Nicotine patch DVT prophylaxis. SCDs as per postop orders Text document was generated using [employer] voice recognition software. It may contain grammatical or spelling errors. Kindly contact undersigned for clarification of any documentation item in question. Admission and Anticipated Discharge Date Admission Date: November 12, 2023 Subjective 11/13/2023 The patient was seen and examined in medical telemetry unit He has been stable and complains to have abdominal discomfort Denies any significant pain and/or distress Blood pressure is noted to be high 11/14/2023 The patient was seen and examined in medical telemetry unit He shows minimal improvement Still has abdominal bloating and nausea at times Has been moving gas 11/15/2023 The patient was seen and examined in medical telemetry unit He is back from upper GI series which showed no extravasation of Gastrografin He was started with full liquid diet by the surgery service He has been feeling much better and complains minimal abdominal discomfort Review of Systems Review of Systems: All systems reviewed and are unremarkable except as noted below Physical Exam Physical Exam: Lying in bed with acute distress due to abdominal discomfort Constitutional: + ill appearing and + thin Eyes: PERRL, conjunctivae normal, anicteric sclerae ENMT: external ear and nose normal, oropharynx normal Neck: trachea midline, no thyromegaly Respiratory: no respiratory distress Auscultation: lungs clear to auscultation bilaterally Cardiovascular: Rate/Rhythm: regular rate and regular rhythm; not tachycardic Heart Sounds: normal S1 and normal S2; no murmur Extremities: no edema Gastrointestinal (Abdomen): Inspection/Auscultation: + abdomen distended; + abnormal bowel sounds Percussion/Palpation: + abdomen tender and abdomen soft Neurologic: normal touch/pain/proprioception and moves all extremities; no focal motor deficits Lymphatic: no cervical or axillary lymphadenopathy Results & Data Results & Data Vital Signs (Past 12 Hours) Vital Signs Temp Pulse Pulse Resp BP BP BP 11/15/23 16:06 36.9 C 84 18 128/79 11/15/23 12:45 70 11/15/23 11:58 75 159/88 H 11/15/23 11:10 36.6 C 75 16 159/88 H 11/15/23 07:52 77 11/15/23 07:46 36.9 C 74 18 160/86 H 11/15/23 07:10 72 11/15/23 06:19 80 176/88 H 11/15/23 05:02 76 176/90 H Pulse Ox O2 Del Method 11/15/23 16:06 95 Room Air 11/15/23 12:45 11/15/23 11:58 11/15/23 11:10 95 Room Air 11/15/23 07:52 11/15/23 07:46 93 Room Air 11/15/23 07:10 11/15/23 06:19 11/15/23 05:02 Laboratory Results Short CBC 11/15/23 Range/Units 07:28 WBC 9.10 (4.8-10.8) K/ul Hgb 13.6 L (14.0-18.0) g/dl Hct 41.4 L (42.0-52.0) % Plt Count 258 (130-400) K/uL BMP 11/15/23 07:28 Sodium 136 Potassium 3.2 L Chloride 98 Carbon Dioxide 28 BUN 13 Creatinine 0.54 L Glucose 92 Calcium 8.1 L Medications Administered Current Inpatient Medications Acetaminophen (Acetaminophen 325 Mg Tab) 650 mg PO Q4H PRN PRN Reason: Mild Pain (Scale 1, 2, 3) Stop: 12/15/23 12:22 Clonidine HCl (Clonidine Hcl 0.1 Mg/24 Hr Transderm Sys) 1 patch TD Q7D [facility] Stop: 12/14/23 01:29 Last Admin: 11/14/23 01:49 Dose: 1 patch Heparin Sodium (Porcine) (Heparin Sod 5,000 Unit/0.5 Ml Vial) 5,000 units SQ Q12 [facility] Stop: 12/14/23 08:59 Last Admin: 11/15/23 07:58 Dose: 5,000 units Hydralazine HCl (Hydralazine Hcl 20 Mg/Ml Vial) 5 mg IV Q6H PRN PRN Reason: Hypertension SBP>170or DBP>100 Stop: 12/12/23 09:34 Last Admin: 11/15/23 04:38 Dose: 5 mg Hydromorphone HCl (Hydromorphone Inj 0.5 Mg/0.5 Ml Syr) 0.5 mg IV Q3H PRN PRN Reason: Severe Pain (Scale 7, 8, 9,10) Stop: 11/26/23 09:07 Last Admin: 11/15/23 11:01 Dose: 0.5 mg Piperacillin Sod/Tazobactam (Sod 4.5 gm/ Dextrose) 100 mls @ 25 mls/hr IV Q8H [facility]; Protocol Stop: 11/22/23 03:59 Last Infusion: 11/15/23 16:04 Dose: Infused Pantoprazole Sodium 40 mg/ (Syringe) 10 mls @ 5 mls/min IV BID [facility] Stop: 12/12/23 08:59 Last Admin: 11/15/23 07:57 Dose: 5 mls/min Lactated Ringer's (Lr) 1,000 mls @ 100 mls/hr IV .Q10H [facility] Stop: 12/12/23 09:34 Last Admin: 11/15/23 11:56 Dose: 100 mls/hr Lorazepam 0.25 mg/ Syringe 0.25 mls @ 2 mls/min IV Q8H PRN PRN Reason: Anxiety/Agitation Stop: 12/12/23 22:10 Last Admin: 11/14/23 05:55 Dose: 2 mls/min Lorazepam 0.25 mg/ Syringe 0.25 mls @ 2 mls/min IV HS PRN PRN Reason: insomnia Stop: 12/12/23 22:11 Last Admin: 11/13/23 21:16 Dose: 2 mls/min Metoprolol Tartrate (Metoprolol Tartrate 1 Mg/Ml Vial) 5 mg IV Q6 [facility]; Protocol Stop: 12/13/23 17:59 Last Admin: 11/15/23 11:58 Dose: 5 mg Miscellaneous (Remove Clonidine Patch) 1 each N/A Q7D [facility] Stop: 12/21/23 01:28 Miscellaneous (Check Clonidine Patch Placement) 1 each N/A QS [facility] Stop: 12/14/23 07:59 Last Admin: 11/15/23 07:56 Dose: 1 each Miscellaneous (Remove Nicoderm Patch) 1 each N/A DAILY@2114 [facility] Stop: 12/14/23 21:13 Last Admin: 11/14/23 22:35 Dose: 1 each Nicotine (Nicotine 21 Mg/24 Hr Tdsy) 1 patch TD Q24H [facility] Stop: 12/14/23 21:14 Last Admin: 11/14/23 22:35 Dose: 1 patch Ondansetron HCl (Ondansetron Inj 2 Mg/Ml 2 Ml Vial) 4 mg IV Q6H PRN PRN Reason: Nausea And Vomiting Stop: 12/12/23 03:27 Last Admin: 11/14/23 23:31 Dose: 4 mg Oxycodone HCl (Oxycodone Hcl Ir 5 Mg Tab (Immediate Release)) 5 mg PO Q4H PRN PRN Reason: Moderate Pain (Scale 4, 5, 6) Stop: 11/29/23 12:23
[2023-11-15] MEDS: METOPROLOL SUCC 25MG EXT REL TAB PO SCH (20:52)
[2023-11-15] MEDS: LORazepam 0.5 MG TAB PO STA (22:39)
[2023-11-16] MEDS: oxyCODONE HCL IR 5 MG TAB (IMMEDIATE RELEASE) PO PRN (04:26)
[2023-11-16 07:46] LABS: Basophils # (auto) 0.04 K/uL (0.00-0.20); Basophils % (auto) 0.5 %; Eosinophils # (auto) 0.23 K/uL (0.00-0.50); Eosinophils % (auto) 2.7 %; Hematocrit (blood only) 41.5 % (42.0-52.0); Hemoglobin 13.6 g/dl (14.0-18.0); Immature Granulocytes # (auto) 0.05 K/uL (0.01-0.20); Immature Granulocytes % (auto) 0.6 %; Lymphocytes # (auto) 1.36 K/uL (1.20-3.40); Lymphocytes % (auto) 15.9 %; Mean Corpuscular Hemoglobin 27.6 pg (25.0-34.0); Mean Corpuscular Hgb Conc 32.8 g/dL (32.0-36.0); Mean Corpuscular Volume 84.3 fL (80.0-100.0); Mean Platelet Volume 10.6 fL (9.4-12.4); Monocytes % (auto) 12.9 %; Neutrophils # (auto) 5.78 K/uL (1.40-6.50); Neutrophils % (auto) 67.4 %; Platelet Count 269 K/uL (130-400); RDW Coefficient of Variation 13.2 % (11.5-14.5); RDW Standard Deviation 40.6 fL (36.4-46.3); Red Blood Count 4.92 M/uL (4.70-6.10); White Blood Count 8.56 K/ul (4.8-10.8)
[2023-11-16 08:01] LABS: Albumin Level 2.7 gm/dl (3.4-5.0); BUN Creatinine Ratio 20.9 (10-20); Bilirubin,Total 0.3 mg/dl (0.2-1.0); Creatinine Clr Calc Pharmacy 109.8 ml/min; Est GFR (African American) 127.1 ml/min; Est GFR (Non-African American) 109.7 ml/min; Globulin 2.8 gm/dl (2.5-4.0); Potassium 3.6 mmol/L (3.5-5.1); Total Protein 5.5 gm/dl (6.0-8.3)
--- NOTE | 2023-11-16 08:28 | Surgery Progress Note ---
Date of Service November 16, 2023 Assessment & Plan (1) Perforated chronic gastric ulcer: Plan: #5 POD Pt s/p repair of perforated gastric ulcer and biopsy of lymph nodes WBC wnl, vitals stable, HTN UGI study yest. no leak tolerating full liquid diet Keep NICK for now, will send for amylase Encourage OOB passing flatus , no bm yet Admission and Anticipated Discharge Date Admission Date: November 12, 2023 Supervising Physician Co-Signing Physician Notes Still has moderate amount of serous drainage from the Rufino drain in the left upper quadrant Tolerating a full liquid diet contrast study yesterday no leak from the repair Will check an amylase on the fluid from the Rufino drain since this was a posterior perforation of the stomach and along the lesser curvature Will increase to regular diet DC antibiotics hopefully may be able to be discharged in a day or so Consult placed for gastroenterology so they see the patient before discharge so they made follow-up for EGD in about [address] Juarez covering the weekend Subjective Pt tolerating full liquid diet no n/v + flatus abd pain tolerable Review of Systems Constitutional: no fever and no chills Respiratory: no dyspnea Cardiovascular: no chest pain Gastrointestinal: + abdominal pain; no nausea and no vomit ing Physical Exam Constitutional: cooperative and comfortable; no acute distress Respiratory: normal respiratory effort and able to speak in complete sentences; no respiratory distress Gastrointestinal (Abdomen): Inspection/Auscultation: + abdominal surgical incision (CDI ) and + abdominal surgical drain present (serous fluid ) Percussion/Palpation: + abdomen tender and abdomen soft Results & Data Vital Signs (Past 12 Hours) Vital Signs Temp Pulse Pulse Pulse Resp BP Pulse Ox 11/16/23 07:43 98.4 F 65 18 153/92 H 94 11/16/23 02:52 98.1 F 70 16 163/88 H 94 11/15/23 23:29 67 11/15/23 23:03 99.0 F 66 16 155/83 H 94 11/15/23 22:46 O2 Del Method 11/16/23 07:43 Room Air 11/16/23 02:52 Room Air 11/15/23 23:29 11/15/23 23:03 Room Air 11/15/23 22:46 Room Air Results CBC w Diff Results: RBC 4.92 M/uL (4.70-6.10) 11/16/23 WBC 8.56 K/ul (4.8-10.8) 11/16/23 Hgb 13.6 g/dl (14.0-18.0) L 11/16/23 Hct 41.5 % (42.0-52.0) L 11/16/23 MCV 84.3 fL (80.0-100.0) 11/16/23 MCH 27.6 pg (25.0-34.0) 11/16/23 MCHC 32.8 g/dL (32.0-36.0) 11/16/23 RDW Standard Deviation 40.6 fL (36.4-46.3) 11/16/23 RDW Coefficient of Variation 13.2 % (11.5-14.5) 11/16/23 Plt Count 269 K/uL (130-400) 11/16/23 MPV 10.6 fL (9.4-12.4) 11/16/23 Neutrophils (%) (Auto) 67.4 % 11/16/23 Lymphocytes (%) (Auto) 15.9 % 11/16/23 Monocytes # (Auto) 1.10 K/uL (0.11-0.59) H 11/16/23 Eosinophils # (Auto) 0.23 K/uL (0.00-0.50) 11/16/23 Immature Granulocyte % (Auto) 0.6 % 11/16/23 Neutrophils # (Auto) 5.78 K/uL (1.40-6.50) 11/16/23 Lymphocytes # (Auto) 1.36 K/uL (1.20-3.40) 11/16/23 Monocytes # (Auto) 1.10 K/uL (0.11-0.59) H 11/16/23 Eosinophils # (Auto) 0.23 K/uL (0.00-0.50) 11/16/23 Basophils # (Auto) 0.04 K/uL (0.00-0.20) 11/16/23 Immature Granulocyte # (Auto) 0.05 K/uL (0.01-0.20) 4 Polychromasia 1+ 11/12/23 Echinocytes 2+ 11/12/23 PG Care Time/CCT Total # of Minutes Spent Total Time Spent with Patient: Total time spent is greater than 50% in coordination of care (as documented) at patient's floor/unit and/or counseling patient: Coding Level of Care Code 77675 Post Operative Follow-Up Diagnoses Perforated chronic gastric ulcer K25.5
--- NOTE | 2023-11-16 09:46 | Communication Note ---
Date of Service: November 16, 2023 Patient is a 53 yo male who is here on POD #5 for perforated gastric ulcer. General surgery has reached out so that patient can be set up for an EGD 6+ w eeks in the future. Patient tells me he is a patient of [facility], but is agreeable to EGD with our office. I have contacted our office staff to arrange this and they will contacting the patient at his provided phone number of [phone].
--- NOTE | 2023-11-16 14:13 | Hospitalist Progress Note ---
Date of Service November 16, 2023 Assessment & Plan (1) Perforated chronic gastric ulcer: Plan: Final Assessment and Recommendations as follows : Perforated gastric ulcer status post surgery History of PUD Management management as per surgery Continue to have NG suction Remains n.p.o. and will continue IV fluid Clinically a little better Will continue with the NG tube suction as of today Electrolytes have been replaced Has been passing gas Status post upper GI series which did not show any leak as of Gastrografin His NG tube was taken out and started on liquid diet He has been feeling little better today Much better today and tolerated liquid diet Diet has been advanced to regular by the surgery team He has had his bowel movement Abnormal lymph node biopsy result Intra-abdominal and mesenteric lymph node pathology showed 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 Advised to have other pathologist to be excluded Ask for ESR, test for syphilis and also HIV and peripheral blood smear as advised by the pathologist Discussed with the patient in detail He will need to have an appointment with oncologist/pressurizer as an outpatient Test for syphilis and HIV have been negative ESR is 60 and peripheral blood smear negative for any significant findings Rheumatoid factor is pending Will need to have an appointment with pressurizer as an outpatient following discharge Hypertensive urgency secondary to discomfort, IVF, home medication noncompliance Blood pressure remains elevated and noted to be at 191/105 this afternoon Continue IV Hydralazine as needed Will add Lopressor IV 5 mg every 6 hours Will monitor blood pressure and if needed we will add Nitropaste Blood pressure remains elevated at 185/95 Clonidine patch has been applied since last night Will monitor Hyperglycemia rule out DM Hemoglobin A1c 6.4 Will continue with current management opioid addiction as per records ongoing tobacco abuse Nicotine patch DVT prophylaxis. SCDs as per postop orders Text document was generated using [employer] voice recognition software. It may contain grammatical or spelling errors. Kindly contact undersigned for clarification of any documentation item in question. Admission and Anticipated Discharge Date Admission Date: November 12, 2023 Subjective 11/13/2023 The patient was seen and examined in medical telemetry unit He has been stable and complains to have abdominal discomfort Denies any significant pain and/or distress Blood pressure is noted to be high 11/14/2023 The patient was seen and examined in medical telemetry unit He shows minimal improvement Still has abdominal bloating and nausea at times Has been moving gas 11/15/2023 The patient was seen and examined in medical telemetry unit He is back from upper GI series which showed no extravasation of Gastrografin He was started with full liquid diet by the surgery service He has been feeling much better and complains minimal abdominal discomfort 11/16/2023 Patient was seen and examined in medical telemetry unit He has been feeling much better with minimal discomfort in the abdomen Has been tolerating liquid diet Has had a bowel movement Denies any other significant symptoms Review of Systems Review of Systems: All systems reviewed and are unremarkable except as noted below Physical Exam Physical Exam: Lying in bed without any acute distress Constitutional: + ill appearing and + thin Eyes: PERRL, conjunctivae normal, anicteric sclerae ENMT: external ear and nose normal, oropharynx normal Neck: trachea midline, no thyromegaly Respiratory: no respiratory distress Auscultation: lungs clear to auscultation bilaterally Cardiovascular: Rate/Rhythm: regular rate and regular rhythm; not tachycardic Heart Sounds: normal S1 and normal S2; no murmur Extremities: no edema Gastrointestinal (Abdomen): Inspection/Auscultation: + abdomen distended; + abnormal bowel sounds Percussion/Palpation: + abdomen tender and abdomen soft Neurologic: normal touch/pain/proprioception and moves all extremities; no focal motor deficits Lymphatic: no cervical or axillary lymphadenopathy Results & Data Results & Data Vital Signs (Past 12 Hours) Vital Signs Temp Pulse Pulse Resp BP Pulse Ox O2 Del Method 11/16/23 11:34 36.8 C 63 18 158/94 H 94 Room Air 11/16/23 07:43 36.9 C 65 18 153/92 H 94 Room Air 11/16/23 02:52 36.7 C 70 16 163/88 H 94 Room Air Laboratory Results Short CBC 11/16/23 Range/Units 06:49 WBC 8.56 (4.8-10.8) K/ul Hgb 13.6 L (14.0-18.0) g/dl Hct 41.5 L (42.0-52.0) % Plt Count 269 (130-400) K/uL BMP 11/16/23 06:49 Sodium 137 Potassium 3.6 Chloride 102 Carbon Dioxide 29 BUN 14 Creatinine 0.67 Glucose 124 H Calcium 8.0 L Liver Function 11/16/23 Range/Units 06:49 Total Bilirubin 0.3 (0.2-1.0) mg/dl AST 9 L (13-39) U/L ALT 4 L (7-52) U/L Alkaline Phosphatase 73 (34-104) U/L Albumin 2.7 L (3.4-5.0) gm/dl Medications Administered Current Inpatient Medications Acetaminophen (Acetaminophen 325 Mg Tab) 650 mg PO Q4H PRN PRN Reason: Mild Pain (Scale 1, 2, 3) Stop: 12/15/23 12:22 Heparin Sodium (Porcine) (Heparin Sod 5,000 Unit/0.5 Ml Vial) 5,000 units SQ Q12 [facility] Stop: 12/14/23 08:59 Last Admin: 11/16/23 10:19 Dose: 5,000 units Hydralazine HCl (Hydralazine Hcl 20 Mg/Ml Vial) 5 mg IV Q6H PRN PRN Reason: Hypertension SBP>170or DBP>100 Stop: 12/12/23 09:34 Last Admin: 11/15/23 04:38 Dose: 5 mg Pantoprazole Sodium 40 mg/ (Syringe) 10 mls @ 5 mls/min IV BID [facility] Stop: 12/12/23 08:59 Last Admin: 11/16/23 10:21 Dose: 5 mls/min Lorazepam 0.25 mg/ Syringe 0.25 mls @ 2 mls/min IV Q8H PRN PRN Reason: Anxiety/Agitation Stop: 12/12/23 22:10 Last Admin: 11/14/23 05:55 Dose: 2 mls/min Lorazepam 0.25 mg/ Syringe 0.25 mls @ 2 mls/min IV HS PRN PRN Reason: insomnia Stop: 12/12/23 22:11 Last Admin: 11/13/23 21:16 Dose: 2 mls/min Metoprolol Succinate (Metoprolol Succ 25mg Ext Rel Tab) 25 mg PO BID [facility] Stop: 12/15/23 20:59 Last Admin: 11/16/23 10:23 Dose: 25 mg Miscellaneous (Remove Nicoderm Patch) 1 each N/A DAILY@2113 [facility] Stop: 12/14/23 21:13 Last Admin: 11/15/23 20:53 Dose: 1 each Nicotine (Nicotine 21 Mg/24 Hr Tdsy) 1 patch TD Q24H [facility] Stop: 12/14/23 21:14 Last Admin: 11/15/23 20:53 Dose: 1 patch Oxycodone HCl (Oxycodone Hcl Ir 5 Mg Tab (Immediate Release)) 5 mg PO Q4H PRN PRN Reason: Moderate Pain (Scale 4, 5, 6) Stop: 11/29/23 12:23 Last Admin: 11/16/23 10:17 Dose: 5 mg
[2023-11-16] MEDS: ACETAMINOPHEN 325 MG TAB PO PRN (16:06)
[2023-11-16] MEDS: MELATONIN 3 MG TAB PO PRN (21:46)
[2023-11-17 06:57] LABS: Basophils # (auto) 0.04 K/uL (0.00-0.20); Basophils % (auto) 0.6 %; Eosinophils # (auto) 0.32 K/uL (0.00-0.50); Eosinophils % (auto) 4.7 %; Hematocrit (blood only) 38.4 % (42.0-52.0); Hemoglobin 12.8 g/dl (14.0-18.0); Immature Granulocytes # (auto) 0.06 K/uL (0.01-0.20); Immature Granulocytes % (auto) 0.9 %; Lymphocytes # (auto) 1.59 K/uL (1.20-3.40); Lymphocytes % (auto) 23.2 %; Mean Corpuscular Hemoglobin 27.6 pg (25.0-34.0); Mean Corpuscular Hgb Conc 33.3 g/dL (32.0-36.0); Mean Corpuscular Volume 82.8 fL (80.0-100.0); Mean Platelet Volume 10.4 fL (9.4-12.4); Monocytes # (auto) 0.87 K/uL (0.11-0.59); Monocytes % (auto) 12.7 %; Neutrophils # (auto) 3.98 K/uL (1.40-6.50); Neutrophils % (auto) 57.9 %; Platelet Count 271 K/uL (130-400); Red Blood Count 4.64 M/uL (4.70-6.10); White Blood Count 6.86 K/ul (4.8-10.8)
[2023-11-17 07:17] LABS: Albumin Globulin Ratio 0.9 (0.9-2); Albumin Level 2.7 gm/dl (3.4-5.0); BUN Creatinine Ratio 19.7 (10-20); Bilirubin,Total 0.3 mg/dl (0.2-1.0); Calcium 8.1 mg/dl (8.6-10.3); Creatinine Clr Calc Pharmacy 120.4 ml/min; Est GFR (African American) 132.1 ml/min; Globulin 3.1 gm/dl (2.5-4.0); Potassium 3.4 mmol/L (3.5-5.1); Total Protein 5.8 gm/dl (6.0-8.3)
--- NOTE | 2023-11-17 08:02 | Surgery Progress Note ---
Date of Service November 17, 2023 Assessment & Plan (1) Perforated chronic gastric ulcer: Plan: #6 POD Pt s/p repair of perforated gastric ulcer and biopsy of lymph nodes WBC wnl, vitals stable, HTN Tolerating reg diet no n/v passing flatus and having BMs ambulating in halls w/o difficulty LILY fluid sent for amylase, came back at 23 LILY serous fluid amount is 130cc/290cc in 12/24hr Will send patient home with Lily drain He is to record output and bring to his follow up appt. Call office Sunday and set up f/u Hospital contacted, no concerns from their end Pt stable for discharge. Admission and Anticipated Discharge Date Admission Date: November 12, 2023 Supervising Physician Co-Signing Physician Notes pnt S&E, agree with above. s/p ex-lap and repair staffing clerk gastric perforation. Doing well, minimal pain, tolerating diet. afvss, drain with serous drainage. incision w bal, no infection. labs unremarkable. drain amylase 24, but no serum to compare to. d/c to home on abx and ppi, avoid nsaids. wound care instructions and activity restrictions reviewed. cont drain. f/u with Dr. Jacome in clinic. Subjective s/p ex-lap w/ repair posterior gastric perforation Review of Systems 2 Constitutional: no fever and no chills Respiratory: no dyspnea Cardiovascular: no chest pain Gastrointestinal: + abdominal pain; no nausea and no vomit ing Genitourinary: no dysuria Musculoskeletal: no muscle weakness Physical Exam Constitutional: cooperative and comfortable; no acute distress Respiratory: normal respiratory effort and able to speak in complete sentences; no respiratory distress Cardiovascular: Rate/Rhythm: regular rate Gastrointestinal (Abdomen): Inspection/Auscultation: + abdominal surgical incision (CDI bal left open to air ) and + abdominal surgical drain present (serous fluid ); abdomen not distended Percussion/Palpation: + abdomen tender and abdomen soft; no guarding Results & Data Vital Signs (Past 12 Hours) Vital Signs Temp Pulse Pulse Resp BP BP Pulse Ox 11/17/23 07:26 97.7 F 76 18 165/101 H 94 11/17/23 03:55 98.2 F 68 16 169/91 H 96 11/16/23 23:34 98.8 F 64 16 143/75 H 95 11/16/23 23:17 65 O2 Del Method 11/17/23 07:26 Room Air 11/17/23 03:55 Room Air 11/16/23 23:34 Room Air 11/16/23 23:17 Results CBC w Diff Results: RBC 4.64 M/uL (4.70-6.10) L 11/17/23 WBC 6.86 K/ul (4.8-10.8) 11/17/23 Hgb 12.8 g/dl (14.0-18.0) L 11/17/23 Hct 38.4 % (42.0-52.0) L 11/17/23 MCV 82.8 fL (80.0-100.0) 11/17/23 MCH 27.6 pg (25.0-34.0) 11/17/23 MCHC 33.3 g/dL (32.0-36.0) 11/17/23 RDW Standard Deviation 39.0 fL (36.4-46.3) 11/17/23 RDW Coefficient of Variation 13.0 % (11.5-14.5) 11/17/23 Plt Count 271 K/uL (130-400) 11/17/23 MPV 10.4 fL (9.4-12.4) 11/17/23 Neutrophils (%) (Auto) 57.9 % 11/17/23 Lymphocytes (%) (Auto) 23.2 % 11/17/23 Monocytes # (Auto) 0.87 K/uL (0.11-0.59) H 11/17/23 Eosinophils # (Auto) 0.32 K/uL (0.00-0.50) 11/17/23 Immature Granulocyte % (Auto) 0.9 % 11/17/23 Neutrophils # (Auto) 3.98 K/uL (1.40-6.50) 11/17/23 Lymphocytes # (Auto) 1.59 K/uL (1.20-3.40) 11/17/23 Monocytes # (Auto) 0.87 K/uL (0.11-0.59) H 11/17/23 Eosinophils # (Auto) 0.32 K/uL (0.00-0.50) 11/17/23 Basophils # (Auto) 0.04 K/uL (0.00-0.20) 11/17/23 Immature Granulocyte # (Auto) 0.06 K/uL (0.01-0.20) 4 Polychromasia 1+ 11/12/23 Echinocytes 2+ 11/12/23 PG Care Time/CCT Total # of Minutes Spent Total Time Spent with Patient: Total time spent is greater than 50% in coordination of care (as documented) at patient's floor/unit and/or counseling patient: Coding Level of Care Code 19830 Post Operative Follow-Up Diagnoses Perforated chronic gastric ulcer K25.5
--- NOTE | 2023-11-17 09:25 | Hospitalist Progress Note ---
Date of Service November 17, 2023 Assessment & Plan (1) Perforated chronic gastric ulcer: Plan: Final Assessment and Recommendations as follows : Perforated gastric ulcer status post surgery History of PUD Management management as per surgery Continue to have NG suction Remains n.p.o. and will continue IV fluid Clinically a little better Will continue with the NG tube suction as of today Electrolytes have been replaced Has been passing gas Status post upper GI series which did not show any leak as of Gastrografin His NG tube was taken out and started on liquid diet He has been feeling little better today Much better today and tolerated liquid diet Diet has been advanced to regular by the surgery team He has had his bowel movement He has been tolerating regular diet Denies any significant symptoms and will be discharged home by the primary service today He was strongly advised to have follow-up with the healthcare providers as advised Abnormal lymph node biopsy result Intra-abdominal and mesenteric lymph node pathology showed 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 Advised to have other pathologist to be excluded Ask for ESR, test for syphilis and also HIV and peripheral blood smear as advised by the pathologist Discussed with the patient in detail He will need to have an appointment with oncologist/stamping machine operator as an outpatient Test for syphilis and HIV have been negative ESR is 60 and peripheral blood smear negative for any significant findings Rheumatoid factor is pending Will need to have an appointment with stamping machine operator as an outpatient following discharge He will need to have a follow-up appointment with stamping machine operator through his primary care doctor Hypertensive urgency secondary to discomfort, IVF, home medication noncompliance Blood pressure remains elevated and noted to be at 191/105 this afternoon Continue IV Hydralazine as needed Will add Lopressor IV 5 mg every 6 hours Will monitor blood pressure and if needed we will add Nitropaste Blood pressure remains elevated at 185/95 Clonidine patch has been applied since last night He used to take blood pressure medications but did not take it as the blood pressure was controlled at home He was advised to continue with metoprolol and not to stop it abruptly until talking to his physician Hyperglycemia rule out DM Hemoglobin A1c 6.4 Will continue with current management opioid addiction as per records ongoing tobacco abuse Nicotine patch DVT prophylaxis. SCDs as per postop orders Text document was generated using [employer] voice recognition software. It may contain grammatical or spelling errors. Kindly contact undersigned for clarification of any documentation item in question. Admission and Anticipated Discharge Date Admission Date: November 12, 2023 Subjective 11/13/2023 The patient was seen and examined in medical telemetry unit He has been stable and complains to have abdominal discomfort Denies any significant pain and/or distress Blood pressure is noted to be high 11/14/2023 The patient was seen and examined in medical telemetry unit He shows minimal improvement Still has abdominal bloating and nausea at times Has been moving gas 11/15/2023 The patient was seen and examined in medical telemetry unit He is back from upper GI series which showed no extravasation of Gastrografin He was started with full liquid diet by the surgery service He has been feeling much better and complains minimal abdominal discomfort 11/16/2023 Patient was seen and examined in medical telemetry unit He has been feeling much better with minimal discomfort in the abdomen Has been tolerating liquid diet Has had a bowel movement Denies any other significant symptoms 11/17/2023 The patient was seen and examined in medical telemetry unit He has been feeling much better and tolerating regular diet Denies any abdominal pain, nausea no vomiting Bowel has been moving and he is ambulating He will be discharged by the primary service today Review of Systems Review of Systems: All systems reviewed and are unremarkable except as noted below Physical Exam Physical Exam: Lying in bed without any acute distress Constitutional: + ill appearing and + thin Eyes: PERRL, conjunctivae normal, anicteric sclerae ENMT: external ear and nose normal, oropharynx normal Neck: trachea midline, no thyromegaly Respiratory: no respiratory distress Auscultation: lungs clear to auscultation bilaterally Cardiovascular: Rate/Rhythm: regular rate and regular rhythm; not tachycardic Heart Sounds: normal S1 and normal S2; no murmur Extremities: no edema Gastrointestinal (Abdomen): Inspection/Auscultation: abdomen not distended and + abnormal bowel sounds Percussion/Palpation: abdomen soft; abdomen nontender Neurologic: normal touch/pain/proprioception and moves all extremities; no focal motor deficits Lymphatic: no cervical or axillary lymphadenopathy Results & Data Results & Data Vital Signs (Past 12 Hours) Vital Signs Temp Pulse Pulse Resp BP BP Pulse Ox 11/17/23 07:26 36.5 C 76 18 165/101 H 94 11/17/23 03:55 36.8 C 68 16 169/91 H 96 11/16/23 23:34 37.1 C 64 16 143/75 H 95 11/16/23 23:17 65 O2 Del Method 11/17/23 07:26 Room Air 11/17/23 03:55 Room Air 11/16/23 23:34 Room Air 11/16/23 23:17 Laboratory Results Short CBC 11/17/23 Range/Units 06:24 WBC 6.86 (4.8-10.8) K/ul Hgb 12.8 L (14.0-18.0) g/dl Hct 38.4 L (42.0-52.0) % Plt Count 271 (130-400) K/uL BMP 11/17/23 06:24 Sodium 138 Potassium 3.4 L Chloride 103 Carbon Dioxide 29 BUN 12 Creatinine 0.61 Glucose 104 H Calcium 8.1 L Liver Function 11/17/23 Range/Units 06:24 Total Bilirubin 0.3 (0.2-1.0) mg/dl AST 18 (13-39) U/L ALT 9 (7-52) U/L Alkaline Phosphatase 69 (34-104) U/L Albumin 2.7 L (3.4-5.0) gm/dl Medications Administered Current Inpatient Medications Acetaminophen (Acetaminophen 325 Mg Tab) 650 mg PO Q4H PRN PRN Reason: Mild Pain (Scale 1, 2, 3) Stop: 12/15/23 12:22 Last Admin: 11/16/23 21:00 Dose: 650 mg Heparin Sodium (Porcine) (Heparin Sod 5,000 Unit/0.5 Ml Vial) 5,000 units SQ Q12 PREETHI Stop: 12/14/23 08:59 Last Admin: 11/16/23 21:00 Dose: 5,000 units Hydralazine HCl (Hydralazine Hcl 20 Mg/Ml Vial) 5 mg IV Q6H PRN PRN Reason: Hypertension SBP>170or DBP>100 Stop: 12/12/23 09:34 Last Admin: 11/15/23 04:38 Dose: 5 mg Pantoprazole Sodium 40 mg/ (Syringe) 10 mls @ 5 mls/min IV BID [facility] Stop: 12/12/23 08:59 Last Admin: 11/16/23 20:59 Dose: 5 mls/min Lorazepam 0.25 mg/ Syringe 0.25 mls @ 2 mls/min IV Q8H PRN PRN Reason: Anxiety/Agitation Stop: 12/12/23 22:10 Last Admin: 11/14/23 05:55 Dose: 2 mls/min Lorazepam 0.25 mg/ Syringe 0.25 mls @ 2 mls/min IV HS PRN PRN Reason: insomnia Stop: 12/12/23 22:11 Last Admin: 11/13/23 21:16 Dose: 2 mls/min Potassium Chloride (K Gt / Wtr) 10 meq in 100 mls @ 100 mls/hr IV Q1H PREETHI Stop: 11/17/23 10:14 Melatonin (Melatonin 3 Mg Tab) 3 mg PO HS PRN PRN Reason: Sleep Stop: 12/16/23 21:11 Last Admin: 11/16/23 21:46 Dose: 3 mg Metoprolol Succinate (Metoprolol Succ 25mg Ext Rel Tab) 25 mg PO BID [facility] Stop: 12/15/23 20:59 Last Admin: 11/16/23 21:00 Dose: 25 mg Miscellaneous (Remove Nicoderm Patch) 1 each N/A DAILY@4 [facility] Stop: 12/14/23 21:13 Last Admin: 11/16/23 21:01 Dose: 1 each Nicotine (Nicotine 21 Mg/24 Hr Tdsy) 1 patch TD Q24H [facility] Stop: 12/14/23 21:14 Last Admin: 11/16/23 21:00 Dose: 1 patch Oxycodone HCl (Oxycodone Hcl Ir 5 Mg Tab (Immediate Release)) 5 mg PO Q4H PRN PRN Reason: Moderate Pain (Scale 4, 5, 6) Stop: 11/29/23 12:23 Last Admin: 11/17/23 07:35 Dose: 5 mg
[2023-11-17] MEDS: POTASSIUM CHLORIDE / WTR 10 MEQ/100 ML PLCT IV SCH (09:48)
== END 2023-11-17 15:22 | disposition home or self-care (01) | DRG 327 ==
LOC: ED 16:20 → 1E 11-12 01:04 → 3E 11-12 03:15 → 2N 11-12 09:32